=== PATIENT | male | born 1945 | race Caucasian/White ===

== ENCOUNTER → 2023-08-18 14:45 | Outpatient (REF) | payer OTHER, SELFPAY | LOC: RAD 14:45 | PROVIDERS: ATTENDING PHYSICIAN Physician Assistant; FAMILY PHYSICIAN Family Medicine | DX: I73.9 Peripheral vascular disease, unspecified (principal) | CPT/HCPCS: 93922; 93925 ==

== ENCOUNTER 2023-09-05 20:34 | Inpatient (IN) | payer OTHER, SELFPAY ==
[2023-09-05 16:48] VITALS: BP 120/66
[2023-09-05 17:15] LABS: % Basophils 0.7 % (0-2); % Eosinophils 7.4 % (0-6); % Immature Granulocytes 0.3 % (0-0.5); % Monocytes 10.8 % (1.7-9.3); % Neutrophils 64.8 % (42.2-75.2); Absolute Basophils 0.1 10^3/uL (0-0.2); Absolute Eosinophils 0.5 10^3/uL (0-0.7); Absolute Lymphocytes 1.1 10^3/uL (1.2-3.4); Absolute Monocytes 0.7 10^3/uL (0.1-0.6); Absolute Neutrophils 4.4 10^3/uL (1.4-6.5); Hematocrit 29.3 % (39.0-52.0); Hemoglobin 9.9 g/dL (13.0-18.0); Mean Corp Hgb Conc. 33.8 g/dL (33.0-37.0); Mean Corpuscular Hgb 34.1 pg (27.0-31.0); Mean Platelet Volume 9.4 fL (7.4-10.4); Nucleated Red Blood Cells % 0 % (-); Platelet Count 205 10^3/uL (130-400); Red Cell Dist. Width 15.4 % (11.5-14.5); White Blood Cell Count 6.8 10^3/uL (4.8-10.8)
[2023-09-05 17:29] LABS: ALT (SGPT) 19 U/L (0-50); AST (SGOT) 37 U/L (17-59); Albumin 3.6 g/dl (3.5-5.0); Alkaline Phosphatase 101 U/L (38-126); Blood Urea Nitrogen 45 mg/dl (9-20); Calcium 9.2 mg/dl (8.4-10.2); Carbon Dioxide 23 mmol/L (22-30); Chloride 103 mmol/L (98-107); Glucose 109 mg/dl (70-99); Potassium 4.7 mmol/L (3.5-5.1); Sodium 135 mmol/L (135-145); Total Bilirubin 0.6 mg/dl (0.2-1.3); eGFR > 60.00
--- NOTE | 2023-09-05 19:01 | ED.SKININJ ---
HPI-Injury
General
Chief Complaint: Wound Check/Suture Removal
Source: patient
Exam Limitations: none
Time Seen by Provider: 09/05/23 18:48
Travel History
Have you had any contact with someone who has COVID-19?: No
Do you have any symptoms of coronavirus? Fever > 100 degrees, chills, cough, shortness of breath, sore throat, loss of taste or smell, muscle aches, or headache?: No
History of Present Illness-Injury
Initial Injury comments:
77-year-old male with history of peripheral arterial disease presents with nonhealing and worsening left heel wound. He has been under the care of wound care center as an outpatient has been on doxycycline for approximately 2 weeks but wound is now
malodorous and having more dark tissue at the base of the wound. He was told by visiting nurse to be evaluated here. He denies fevers or chills. He has history of cardiac disease as well and is on Eliquis. No other complaints at this time
Past History
Past History
ED Past Medical History: Arrthythmia, Asthma, CAD, HTN, Hypercholesterolemia, Valvular disease and Other (pacer)
ED Past Surgical History: Cardiac
Social History
Personal:
Living: with family
Phy Exam
Physical Exam
Physical Exam:
General: well appearing male NAD
HEENT: NC/AT
heart: Irregular rate and rhythm
Lungs: Clear to auscultation bilaterally
Skin: Left heel with malodorous findings and wound with necrotic appearing tissue at the base of the wound. There is mild surrounding erythema
Vascular: Left toes with brisk capillary refill and warm to the touch
Neurologic: Good sensation left foot.
Course
Orders/Labs/Results
Orders:
Orders
09/05/23 16:57
Foot, Left 3 View [CR Foot - Left Min 3 Views] Urgent
Comment:
Reason For Exam: pain, wound infection
09/05/23 17:04
CBC/With Diff [Complete Blood Count/With Diff] Urgent
CMP [Comprehensive Metabolic Panel] Urgent
Blood Culture Urgent
LEO Source: Blood/Venous
Specimen Description:
09/05/23 19:11
Vancomycin 1500 mg IVPB NOW Vancomycin [Vancocin] 1,500 mg 0.9% Sodium Chloride [Nss] 20 ml 0.9% Sodium Chloride 250 ml [Nss] 250 ml IV NOW
Abnormal Lab Results
09/05/23
17:04
RBC 2.90 L 10^6/uL
(4.70-6.10)
Hgb 9.9 L g/dL
(13.0-18.0)
Hct 29.3 L %
(39.0-52.0)
MCV 101.0 H fL
(80.0-94.0)
MCH 34.1 H pg
(27.0-31.0)
RDW 15.4 H %
(11.5-14.5)
Absolute Lymphs (auto) 1.1 L 10^3/uL
(1.2-3.4)
Absolute Monos (auto) 0.7 H 10^3/uL
(0.1-0.6)
Lymphocytes % 16.0 L %
(20.5-51.1)
Monocytes % 10.8 H %
(1.7-9.3)
Eosinophils % 7.4 H %
(0-6)
BUN 45 H mg/dl
(9-20)
Glucose 109 H mg/dl
(70-99)
09/05/23 17:04
09/05/23 17:04
Vital Signs
Initial and Last Documented VS:
Initial Vital Signs
Temp Pulse Resp BP Pulse Ox
97.4 F 89 18 120/66 100
09/05/23 16:48 09/05/23 16:48 09/05/23 16:48 09/05/23 16:48 09/05/23 16:48
Last Documented Vital Signs
Temp Pulse Resp BP Pulse Ox
97.4 F 89 18 120/66 100
09/05/23 16:48 09/05/23 16:48 09/05/23 16:48 09/05/23 16:48 09/05/23 16:48
MDM/Problems Addressed
Differential Diagnosis Includes:
Infected heel ulcer. Has been on antibiotics and is getting worse. Check labs. Will require admission to hospital secondary to failure of outpatient treatment.
*Critical Care Note
Total Time (30-74mins, 75-104mins- exclusive of procedures): Not Applicable
ED Attending Note
-
Portions of this chart may have been created with voice recognition software.� Occasional wrong word or��sound alike� substitutions may have occurred due to the inherent limitations of voice recognition software.
Discharge Plan
Departure
Patient Disposition: Admit
Date of Disposition: 09/05/23
Time of Disposition: 19:13
Admit to: Telemetry
Presentation/result/management discussed w/ accepting MD/DO: Hospitalist
Discharge Problem:
Open wound of heel
Prescriptions:
No Action
metoprolol succinate 50 MG tablet extended release 24 hr
50 mg PO DAILY
atorvastatin [Lipitor] 10 mg Tablet
10 mg PO HS
clopidogrel [Plavix] 75 mg Tablet
75 mg PO DAILY
allopurinol 100 mg Tablet
100 mg PO DAILY
tamsulosin 0.4 mg Capsule
0.4 mg PO HS
Jardiance 10 mg Tablet
10 mg PO DAILY
Hold Instructions: Resume on 06/05/23. RESUME AFTER CARDIOLOGY OFFICE FOLLOW UP
montelukast 10 mg Tablet
10 mg PO HS
fluticasone propionate 50 mcg/actuation [place],Suspension
1 spray INTRANASAL BID
cetirizine [Zyrtec] 10 mg Tablet
10 mg PO HS
budesonide-formoterol 160-4.5 mcg/actuation Hfa Aerosol Inhaler
2 puff INHALATION R BID
cholecalciferol (vitamin D3) 50 mcg (2,000 unit) Tablet
50 mcg PO DAILY
gabapentin 300 mg Capsule
300 mg PO BID Qty: 60 0RF
oxycodone 5 mg Tablet
5 mg PO Q4HPRN PRN (Reason: severe pain) Qty: 14 0RF
torsemide 20 mg tablet
20 mg PO DAILY Qty: 30 0RF
acetaminophen 325 mg Tablet
650 mg PO Q4H PRN (Reason: mild pain/fever>100)
magnesium hydroxide [Milk of Magnesia] 400 mg/5 mL Suspension
30 ml PO DAILY PRN (Reason: if no bm x 4 days)
bisacodyl [Dulcolax (bisacodyl)] 10 mg Suppository
10 mg HI DAILY PRN (Reason: constipation)
Fleet Enema 19-7 gram/118 mL Enema
118 ml HI DAILY PRN (Reason: if dulcolax ineffective)
doxycycline hyclate 100 mg Capsule
100 mg PO Q12 Qty: 4 0RF
polyethylene glycol 3350 [HealthyLax] 17 gram Powder In Packet
17 g PO DAILY Qty: 30 0RF
sennosides-docusate sodium [Stool Softener-Stimulant Laxat] 8.6-50 mg Tablet
1 tab PO BID Qty: 30 0RF
warfarin [Jantoven] 2.5 mg Tablet
2.5 mg PO QPM Qty: 30 0RF
pantoprazole 40 mg Tablet,Delayed Release (Dr/Ec)
40 mg PO BID Qty: 60 0RF
amoxicillin-pot clavulanate 875-125 mg Tablet
1 tab PO Q12 Qty: 10 0RF
oxycodone 10 mg Tablet
10 mg PO Q4HPRN PRN (Reason: severe pain) Qty: 30 0RF
Interventions
Interventions:
*Risk Screen - Suicide Last Done: 09/05/23 16:48
*General Assessment Last Done: 09/05/23 16:48
*Neglect/Abuse Screening Last Done: 09/05/23 18:45
*ED COVID-19 Vaccine History Last Done: 09/05/23 16:48
[2023-09-05 19:26] VITALS: BP 145/70; BMI 21.2
--- NOTE | 2023-09-05 19:40 | HPS.HSE ---
Addendum entered and electronically signed by Liane Escudero MD 09/05/23 20:41:
Patient seen examined independently with [facility]. 77-year-old male with past medical history of PAD status post right common iliac and right popliteal stents, left popliteal dorsal pedal bypass with chronic nonhealing left heel wound since May
2022. Wound stable but pain has become worse over the past week with discharge despite p.o. doxycycline.. No erythema or fever. No fevers or chills. X-ray without evidence of osteomyelitis. Check wound culture. Hold off on antibiotics for now.
Podiatry consulted for potential debridement. Wound care. Vascular surgery consulted. Hold Eliquis for potential debridement.
Original Note:
Family Physician
-
Family Physician:
Chief Complaint
-
Left heel wound�necrosis, malodorous
History of Present Illness
77-year-old male with history of PAD status post right common iliac and right popliteal stents, left popliteal to dorsal pedal bypass who has a chronic left heel wound since May 2023. He has been following with outpatient wound care and has
been on doxycycline for the past 12 days but reports ongoing malodorous drainage for weeks. His states he has been using Santyl as a debridement agent since July to the heel and notes drainage after. I explained to the patient and
drainage is expected with Santyl as it is a debridement agent. There is no obvious malodorous drainage currently on my exam. The patient and state the wound is chronic in size and depth but the pain has become worse over the past week. There
is no erythema or fever. He has been wearing offloading heel boots since May. He has a chronic healing anterior mid wound overlying the talus area of the left foot status post vascular vein graft with no current erythema or drainage. He
denies fever, chills, chest pain, palpitations, shortness breath, cough, abdominal pain, nausea vomiting or diarrhea, urinary symptoms. He has past medical history of post left groin bypass infection with sepsis 06/06/2023, CAD post CABG, chronic
diastolic heart failure, persistent A-fib, moderate MR/mitral valve replacement , mitral stenosis, bioprosthetic AVR, hyponatremia, COPD, HLD, pacemaker 2020 Medtronic
Medical History
Past Medical History
Past Medical History: Reports Other
Additional Past Medical History:
Coronary Artery Disease s/p CABG
Peripheral Arterial Disease s/p Right Common Iliac and Right Popliteal Stents, and Left Popliteal to Dorsalis Pedis Bypass complicated with infection and sepsis 05/29/2023
Chronic Diastolic Heart Failure
Valvular Heart Disease: Moderate Mitral Regurgitation, Mitral Stenosis and Bioprosthetic Aortic Valve Replacement
Persistent Atrial Fibrillation
Hyperlipidemia
COPD
Chronic Hyponatremia
Recent Acute Blood Loss Anemia
Past Surgical History: Reports Other
Additional Past Surgical History:
Mitral valve replacement 2022
aVR bioprosthetic
Medtronic pacemaker 2020
CABG
Right Common Iliac and Right Popliteal Stent
Left Popliteal to Dorsalis Pedis Bypass
Left Popliteal to Dorsalis Pedis Bypass complicated with infection and sepsis 05/29/2023
Social History
Tobacco: Former Smoker
Alcohol: Daily (1 glass wine)
Drug: None
Personal:
Living: With Family ( Lucretia)
Employment: Retired
Family History
Family History: Not pertinent
Allergies / Home Medications
Allergies reflects when Allergies were last updated in [employer] [facility].
Home Medications with original date entered in [employer] [facility]
Allergy/Medication List:
Allergies
Allergy/AdvReac Type Severity Reaction Status Date / Time
lisinopril Allergy Tongue Verified 09/05/23 16:53
Swelling
losartan potassium Allergy cough/RASH Verified 09/05/23 16:53
[From Hyzaar]
morphine Allergy becomes Verified 09/05/23 16:53
delusional
sulfamethoxazole Allergy Rash/tongue Verified 09/05/23 16:53
[From Bactrim] swelling
tetanus and diphtheria Allergy muscle Verified 09/05/23 16:53
toxoids weakness &
[tetanus & diphtheria wasting
toxoids]
trimethoprim [From Bactrim] Allergy Rash/tongue Verified 09/05/23 16:53
swelling
Home Medications
metoprolol succinate 50 mg tablet,extended release 24 hr 50 mg PO QPM Blood pressure 10/15/21
allopurinol 100 mg tablet 100 mg PO DAILY Gout 03/22/23
atorvastatin 10 mg tablet (Lipitor) 10 mg PO DAILY High Cholesterol 03/22/23
clopidogrel 75 mg tablet (Plavix) 75 mg PO DAILY Blood Clot Prevention/Tx 03/22/23
empagliflozin 10 mg tablet (Jardiance) 10 mg PO QPM Heart Failure 03/22/23
tamsulosin 0.4 mg capsule 0.4 mg PO DAILY Urinary Issue 03/22/23
fluticasone propionate 50 mcg/actuation nasal spray,suspension 1 spray intranasal BID Lung/Breathing Issues 03/28/23
montelukast 10 mg tablet 10 mg PO DAILY Lung/Breathing Issues 03/28/23
budesonide-formoterol HFA 160 mcg-4.5 mcg/actuation aerosol inhaler 2 puff inhalation R BID Lung/Breathing Issues 05/16/23
cetirizine 10 mg tablet (Zyrtec) 10 mg PO QPM Allergies 05/16/23
acetaminophen 325 mg tablet 650 mg PO Q4H PRN mild pain/fever>100 06/06/23
albuterol sulfate 90 mcg/actuation aerosol inhaler 2 puff inhalation R Q4 PRN sob/wheezing 09/05/23
apixaban 5 mg tablet (Eliquis) 5 mg PO BID 09/05/23
cholecalciferol (vitamin D3) 25 mcg (1,000 unit) tablet (Vitamin D3) 25 mcg PO DAILY 09/05/23
cyanocobalamin (vitamin B-12) 1,000 mcg tablet (Vitamin B-12) 1,000 mcg PO DAILY 09/05/23
doxycycline hyclate 100 mg capsule 100 mg PO BID 09/05/23
fluticasone propionate 44 mcg/actuation HFA aerosol inhaler 2 puff inhalation R QPM 09/05/23
furosemide 40 mg tablet 40 mg PO DAILY 09/05/23
gabapentin 300 mg capsule 300 mg PO QPM 09/05/23
oxycodone 10 mg tablet,crush resistant,extended release 12 hr (OxyContin) 10 mg PO Q12H 09/05/23
oxycodone 5 mg tablet 5 mg PO Q4H PRN breakthrough pain 09/05/23
potassium chloride 20 mEq tablet,extended release(part/cryst) 20 meq PO DAILY 09/05/23
trazodone 50 mg tablet 50 mg PO HS PRN sleep 09/05/23
valsartan 40 mg tablet 20 mg PO DAILY 09/05/23
Review of Systems
-
History Source: Patient and Family ( Vania)
A 12 point ROS was completed and negative except as noted: Yes
Constitutional: Denies Fever or Chills
EENT: Denies Sore Throat or Runny Nose
Respiratory: Denies Cough or Trouble Breathing
Cardiac: Denies Chest Pain, Diaphoresis, Palpitations or Syncope
Abdomen/GI: Denies Abdominal Pain, Nausea, Vomiting, Diarrhea, Constipated, Bloody Stools or Black Stools
: Denies Dysuria, Frequency, Flank Pain, Incontinence or Difficulty Voiding
Musculoskeletal: Reports Edema (Chronic trace with chronic PVD pigmentation changes); Denies Joint Pain
Skin: Reports Other (Chronic heel wound); Denies Itching or Rash
Neurological: Denies Dizzy, Headache or Weakness
Endocrine: Reports No Symptoms
Hematologic/Lymphatic: Reports No Symptoms
Psych: Reports Calm
Physical Exam
Vital Signs
Vital Signs
Temp Pulse Resp BP Pulse Ox
97.4 F 90 16 145/70 98
09/05/23 16:48 09/05/23 19:26 09/05/23 19:26 09/05/23 19:26 09/05/23 19:26
Physical Exam
General: Comfortable, Conversant and Pain; No Fever
Respiratory: Clear; No Wheezes, Rales or Rhonchi
Cardiac: S1/S2, Regular Rhythm and Peripheral Edema (Chronic); No Murmur, Rub or Gallop
Breast: Deferred by me
GI: Soft, Non Tender, Non Distended, Normal Bowel Sounds and No Hepatosplenomegaly
Rectal: Deferred by Provider
Genito-urinary: Deferred by me
Musculoskeletal: No Clubbing, No Cyanosis, Edema, Left Lower Extremity (Chronic trace with chronic PVD pigmentation changes) and Edema, Right Lower Extremity (Chronic trace with chronic PVD pigmentation changes); No Edema, Left Upper Extremity or
Edema, Right Upper Extremity
Skin: Warm, Dry and Other (Chronic left heel wound with 30% of wound bed and purpleish black in color surrounding 10% green drainage, 60% yellow soft tissue with no erythema of the heel or foot., Chronic healing anterior mid wound overlying the
talus area of the left foot status post vascular vein graft with no current eryth); No Rash
Neuro: AO x 3, No Motor Deficits, Nonfocal/grossly intact, Cranial Nerves Intact and No Sensory Deficits; No Slurred Speech, Facial Droop or Tremors
Psych: Calm
Laboratory Results
-
09/05/23 17:04
09/05/23 17:04
Laboratory Results
Total Bilirubin 0.6 mg/dl (0.2-1.3) 09/05/23 17:04
AST 37 U/L (17-59) 09/05/23 17:04
ALT 19 U/L (0-50) 09/05/23 17:04
Alkaline Phosphatase 101 U/L (38-126) 09/05/23 17:04
Impression/Plan
-
Impression/plan:
Admit to [facility]
# Acute on chronic nonhealing left heel wound with mild necrosis
#PAD
#s/p left popliteal to dorsal pedal bypass complicated with post left groin infection/sepsis 06/06/2023
#S/p right common iliac and right popliteal stents
-WBC 6.8, 145/70
-IV vancomycin given in ER we will hold further patient just completed 12-day course of doxycycline
-Obtain wound culture if drainage present
- cont Plavix
-Hold Eliquis
-Consult Vasc surgery
-Consult podiatry
-Follow CBC, BMP
-PT/OT/case management consult
X-ray left foot: Plantar soft tissue defect no bony destructive process or foreign body
#PAD with chronic pain on chronic oral opiates
-Continue gabapentin, OxyContin 10 mg every 12 hours, oxycodone 5 mg every 4 hours as needed breakthrough pain
#CAD status post CABG
-Continue Plavix, statin, beta-juan
#Chronic diastolic heart failure
I/O, daily weights
-Continue Lasix 40 mg daily
-Continue Jardiance
#Persistent A-fib
#Continue metoprolol for rate control
- Hold Eliquis 5 mg twice daily
#Valvular heart disease: Moderate MR, mitral stenosis
#Bioprosthetic AVR/Mitral Valve
#Pacemaker 2020 medtronic
#Hx hyponatremia-stable
NA 135
#COPD�no acute exacerbation
Continue budesonide/formoterol
#Chronic anemia macrocytic
Hgb 9.9 appears better than baseline
#HLD
-Continue Lipitor
DVT prophylaxis
HOLD Eliquis
Full code
[2023-09-05] MEDS: VANCOCIN 300 MG IV (20:22)
[2023-09-05] MEDS: VANCOCIN 300 ML IV (20:22)
[2023-09-05 21:25] VITALS: BP 129/72
[2023-09-05 21:27] VITALS: BMI 20.8
[2023-09-05 21:35] VITALS: BMI 20.8
[2023-09-05] MEDS: OXYCONTIN (CONTROLLED RELEASE) 10 MG PO (21:52)
[2023-09-06 00:19] VITALS: BP 136/74
--- NOTE | 2023-09-06 05:40 | PTCARENOTE ---
Pt admitted from ED, AAOx3. Denies pain. Pt afebrile, VSS. R forearm IV C/D/I, vancomycin infused without issues. Lungs clear, on room air. No N/V or stools this shift. Voiding to urinal. Pt admitted for chronic left heel wound. Dressing
C/D/I. B/L heels elevated. Call hallman within reach.
[2023-09-06 06:32] LABS: % Basophils 0.6 % (0-2); % Eosinophils 7.9 % (0-6); % Immature Granulocytes 0.3 % (0-0.5); % Lymphocytes 21.6 % (20.5-51.1); % Monocytes 10.3 % (1.7-9.3); % Neutrophils 59.3 % (42.2-75.2); Absolute Eosinophils 0.5 10^3/uL (0-0.7); Absolute Lymphocytes 1.5 10^3/uL (1.2-3.4); Absolute Monocytes 0.7 10^3/uL (0.1-0.6); Hematocrit 27.5 % (39.0-52.0); Hemoglobin 9.6 g/dL (13.0-18.0); Mean Corp Hgb Conc. 34.9 g/dL (33.0-37.0); Mean Corpuscular Hgb 34.8 pg (27.0-31.0); Mean Corpuscular Volume 99.6 fL (80.0-94.0); Mean Platelet Volume 9.5 fL (7.4-10.4); Nucleated Red Blood Cells % 0 % (-); Platelet Count 184 10^3/uL (130-400); Red Blood Cell Count 2.76 10^6/uL (4.70-6.10); Red Cell Dist. Width 15.6 % (11.5-14.5); White Blood Cell Count 6.7 10^3/uL (4.8-10.8)
[2023-09-06 06:43] LABS: Blood Urea Nitrogen 36 mg/dl (9-20); Carbon Dioxide 21 mmol/L (22-30); Chloride 108 mmol/L (98-107); Estimated Creatinine Clearance 54 ml/min; Glucose 89 mg/dl (70-99); Potassium 4.5 mmol/L (3.5-5.1); Sodium 135 mmol/L (135-145); eGFR > 60.00
[2023-09-06 07:40] VITALS: BP 118/59
[2023-09-06] MEDS: SYMBICORT 160/4.5 MCG INHALER 2 PUFF INH ×2 (08:13→21:10)
[2023-09-06] MEDS: DIOVAN 20 MG PO (08:25)
[2023-09-06] MEDS: LIPITOR 10 MG PO (08:26)
[2023-09-06] MEDS: VITAMIN D3 (cholecalciferol) 25 MCG PO (08:26)
[2023-09-06] MEDS: SINGULAIR 10 MG PO (08:26)
[2023-09-06] MEDS: FLOMAX 0.400000000000000022 MG PO (08:26)
[2023-09-06] MEDS: VITAMIN B-12 1000 MCG PO (08:27)
[2023-09-06] MEDS: OXYCONTIN (CONTROLLED RELEASE) 10 MG PO ×2 (08:27→19:20)
[2023-09-06] MEDS: ZYLOPRIM 100 MG PO (08:27)
[2023-09-06] MEDS: PLAVIX 75 MG PO (08:27)
[2023-09-06] MEDS: LASIX 40 MG PO (08:27)
[2023-09-06 09:29] VITALS: BP 121/71; PULSE 110; O2SAT 98
[2023-09-06 11:00] VITALS: BMI 21.2
[2023-09-06] MEDS: ROXICODONE 5 MG PO (12:41)
--- NOTE | 2023-09-06 13:04 | WOUNDNOTE ---
[facility] RN note: Patient admitted with chronic left heel wound
See H&P for complete history.
PMH: PAD s/p right common iliac and right popliteal stents, left popliteal dorsal pedal bypass with chronic nonhealing left heel wound since May 2023 (occurred at [facility]) Coronary Artery Disease s/p CABG
Chronic Diastolic Heart Failure
Valvular Heart Disease: Moderate Mitral Regurgitation, Mitral Stenosis and Bioprosthetic Aortic Valve Replacement
Persistent Atrial Fibrillation
Hyperlipidemia
COPD
Chronic Hyponatremia
Recent Acute Blood Loss Anemia
08/18/2023 TBI Left .37, TBI Right .37
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 Wound is 70% covered with slough and eschar. Patient has been followed by [facility] wound care and wound has been debrided weekly, with use of Santyl currently for wound
care. Right heel with DTI. Patient demonstrates ability to turn in bed. States and demonstrates understanding of keeping heels off-loaded. Sacrum intact.
Appetite: Fair
Pressure redistribution devices in place: [employer] Accumax
Plan: Left heel wound cleaned and packed with Vashe moistened gauze and covered with foam. Right heel covered with adhesive foam. Awaiting consult from podiatry and vascular. Will continue to follow with patient. Will confirm orders with
hospitalist and update nurse.
Note to case management of equipment requested for discharge:
Recommend follow up at wound care center upon discharge.
[2023-09-06 13:30] VITALS: BMI 21.2
[2023-09-06 13:44] LABS: Iron 63 ug/dl (49-181)
[2023-09-06 13:53] LABS: Percent Saturation 24 % (20-50); Total Iron Binding Capacity 261 ug/dl (261-462)
--- NOTE | 2023-09-06 14:07 | CON.ID ---
Consultation
-
Date/Time Consultation Requested: 09/06/23 13:45
Date/Time Consultation Performed: 09/06/23 14:10
Requesting Provider: Dr Corbett
Performing Provider: Dr Shipley
Reason for Consultation: Heel Ulceration
Chief Complaint / Past History
Chief Complaint
heel wound - chronic
History of Present Illness
Mr Haines is a 77 year old male with past medical history of PAD s/p R common iliac and R popliteal stents, L popliteal dorsal pedal bypass. He presented here for a chronic L heel wound which began 06/01; he doesnt recall exactly how the wound
developed reports he was in rehab and not very mobile. Now moving around with walker and pressure offloading boot.� Over the last two weeks with increasing pain and drainage. About 12 days ago started on doxycycline without improvement. No fevers
or chills.�He has been using santyl to the wound. He is on Jardiance with a normal a1c when last assessed 3 months ago. Jardinance is for cardiac remodeling? Never diagnosed with dm2.
Since arrival here he has been afebrile, bp stable, without leukocytosis 6.7, no left shift, cr 1.1, blood cultures x1 in progress - I have ordered a second. Xray without evidence of osteomyelitis. Had vancomycin. ID is consulted for assistance
with management.
Past History
Additional Past Medical History:
Peripheral Arterial Disease s/p Right Common Iliac and Right Popliteal Stents, and Left Popliteal to Dorsalis Pedis Bypass complicated with infection and sepsis 05/29/2023
Chronic Diastolic Heart Failure
Valvular Heart Disease: Moderate Mitral Regurgitation, Mitral Stenosis and Bioprosthetic Aortic Valve Replacement
Persistent Atrial Fibrillation
Hyperlipidemia
COPD
Chronic Hyponatremia
Additional Past Surgical History:
Mitral valve replacement 2022
aVR bioprosthetic
Medtronic pacemaker 2020
CABG
Right Common Iliac and Right Popliteal Stent
Left Popliteal to Dorsalis Pedis Bypass
Left Popliteal to Dorsalis Pedis Bypass complicated with infection and sepsis 05/29/2023
Allergy History:
lisinopril Allergy (Verified 09/05/23 16:53)
Tongue Swelling
losartan potassium [From Hyzaar] Allergy (Verified 09/05/23 16:53)
cough/RASH
morphine Allergy (Verified 09/05/23 16:53)
becomes delusional
sulfamethoxazole [From Bactrim] Allergy (Verified 09/05/23 16:53)
Rash/tongue swelling
tetanus and diphtheria toxoids [tetanus & diphtheria toxoids] Allergy (Verified 09/05/23 16:53)
muscle weakness & wasting
trimethoprim [From Bactrim] Allergy (Verified 09/05/23 16:53)
Rash/tongue swelling
Medications Reviewed: Yes
Social History
Tobacco: Former Smoker
Alcohol: Daily (1 glass of wine daily)
Drug: None
Family History
Family History: Not Pertinent
Review of Systems
Review of Systems
General: Negative Fever or Chills
All systems: All other systems were reviewed and were negative
Vital Signs
Temp Pulse Resp BP Pulse Ox
98.0 F 101 16 118/59 99
09/06/23 07:40 09/06/23 08:25 09/06/23 08:14 09/06/23 08:25 09/06/23 08:14
Physical Exam
Physical Exam
Constitutional: No Acute Distress
Cardiovascular: Regular Rate and S1/S2; Negative Murmur or Rub
Pulmonary: Clear and Symmetric; Negative Wheezes, Rales or Rhonchi
Gastrointestinal: Soft, Non Tender, Non Distended and Normal Bowel Sounds
Skin: Warm and Dry; Negative Rash or Jaundice
Wound: Other (L heel wound with necrotic tissue - no odor +probe to bone; wound is tender)
Lab / Diagnostic Study Results
09/06/23 06:01
09/06/23 06:01
Abs Immat Gran (auto) 0.0 10^3/uL (0-0.05) 09/06/23 06:01
Absolute Neuts (auto) 4.0 10^3/uL (1.4-6.5) 09/06/23 06:01
Absolute Lymphs (auto) 1.5 10^3/uL (1.2-3.4) 09/06/23 06:01
Absolute Monos (auto) 0.7 10^3/uL (0.1-0.6) H 09/06/23 06:01
Absolute Basos (auto) 0.0 10^3/uL (0-0.2) 09/06/23 06:01
Immature Gran % 0.3 % (0-0.5) 09/06/23 06:01
Neutrophils % 59.3 % (42.2-75.2) 09/06/23 06:01
Lymphocytes % 21.6 % (20.5-51.1) 09/06/23 06:01
Monocytes % 10.3 % (1.7-9.3) H 09/06/23 06:01
Eosinophils % 7.9 % (0-6) H 09/06/23 06:01
Basophils % 0.6 % (0-2) 09/06/23 06:01
Microbiology Results
Micro:
09/05/23 17:04 Blood Culture - Pending
Blood/Venous
Assessment / Plan
Probable Osteomyelitis of the L Heel
PAD/CAD
- wound probes to bone
- agree with MRI - added contrast
- started unasyn
- agree with podiatry consultation
- follow clinically
[2023-09-06 14:43] LABS: Ferritin 64.3 ng/ml (17.9-464.0)
[2023-09-06 14:57] LABS: Vitamin B12 > 1000 pg/ml (239-931)
--- NOTE | 2023-09-06 15:01 | CON.VAS ---
Consultation
Consultation Request
Date/Time Consultation Performed: 09/06/23 1500
Requesting Provider: Hospitalist
Performing Provider: Telma Benton, EMBEDDED FIRMWARE DEVELOPER-C for Khadar Sullivan MD
Reason for Consultation: Left heel wound
Medical History
-
Chief Complaint: Left heel wound
History of Present Illness:
This is a 69-year-old male patient known to us as he is status post left lower extremity arterial bypass (Reynolds) from below-knee popliteal artery to dorsalis pedis for tissue loss on 05/19/23. He presented to [facility] ED as he had worsening pain
at the left heel. He notes wound is unchanged in regards to size and depth but does note increased drainage and malodor. He denies fever, chills, chest pain, palpitations, shortness breath, cough, abdominal pain, nausea vomiting or diarrhea,
urinary symptoms. Please see vascular surgical history below. Currently offers no complaints. Please see wound care notes for pictures of chronic wound. Bilateral lower extremity arterial ultrasound with JASON TBI obtained in the outpatient
setting on 08/18/23 demonstrates, 'multiphasic waveforms from common femoral through popliteal artery with no velocity elevation to suggest any significant stenosis. Left popliteal below the knee to dorsalis pedis artery bypass is patent with
monophasic waveforms. In addition distal anastomotic velocity of 454 cm/s and velocity ratio of 5.1 suggestive of greater than 75% stenosis.'
Past Vascular Surgery History:
05/08/2020- Balloon angioplasty and stenting of right common iliac artery stenosis and popliteal artery stenosis behind the knee, intravascular lithotripsy right common iliac artery stenosis and popliteal artery stenosis, diagnostic aortobiiliac
arteriogram, and diagnostic right lower extremity arteriogram
10/30/2020- Shockwave balloon lithotripsy of heavily calcified above the knee and behind the knee popliteal artery stenoses, balloon angioplasty and stenting of above the knee and behind the knee popliteal artery stenoses, balloon angioplasty and
stenting of left common iliac artery stenosis, diagnostic aortobiiliac arteriogram, diagnostic left lower extremity arteriogram
03/28/2023- Selective catheterization of third order lower extremity artery, attempted (failed) antegrade/retrograde crossing of heavily calcified distal anterior tibial artery occlusion, diagnostic aortobiiliac arteriogram, diagnostic left lower
extremity arteriogram
05/19/2023- LEFT below the knee popliteal artery to dorsalis pedis artery bypass using ipsilateral nonreversed great saphenous vein
06/07/2023- Incision and drainage of left groin and thigh superficial wound infection. Pulse lavage irrigation
Past Medical History
Past Medical History: Arrhythmias (Persistent atrial fibrillation), Asthma, CAD, HTN, Valvular Disease (Moderate Mitral Regurgitation, Mitral Stenosis and Bioprosthetic Aortic Valve Replacement) and Other (Chronic Hyponatremia)
Past Surgical History: Cardiac (Permanent pacemaker, CABG, Mitral valve replacement 2022 aVR bioprosthetic) and Other (See HPI for vascular surgery history)
Social History
Tobacco: Former Smoker
Alcohol: Daily (1 glass of wine per day)
Personal:
Living: With Family
Employment: Retired
Allergies / Home Medications
Allergy/AdvReac Type Severity Reaction Status Date / Time
lisinopril Allergy Tongue Verified 09/05/23 16:53
Swelling
losartan potassium Allergy cough/RASH Verified 09/05/23 16:53
[From Hyzaar]
morphine Allergy becomes Verified 09/05/23 16:53
delusional
sulfamethoxazole Allergy Rash/tongue Verified 09/05/23 16:53
[From Bactrim] swelling
tetanus and diphtheria Allergy muscle Verified 09/05/23 16:53
toxoids weakness &
[tetanus & diphtheria wasting
toxoids]
trimethoprim [From Bactrim] Allergy Rash/tongue Verified 09/05/23 16:53
swelling
Medication Instructions Recorded Confirmed Type
metoprolol succinate 50 mg 50 mg PO QPM Blood pressure 10/15/21 09/05/23 History
tablet,extended release 24 hr
allopurinol 100 mg tablet 100 mg PO DAILY Gout 03/22/23 09/05/23 History
atorvastatin 10 mg tablet (Lipitor) 10 mg PO DAILY High Cholesterol 03/22/23 09/05/23 History
clopidogrel 75 mg tablet (Plavix) 75 mg PO DAILY Blood Clot 03/22/23 09/05/23 History
Prevention/Tx
empagliflozin 10 mg tablet 10 mg PO QPM Heart Failure 03/22/23 09/05/23 History
(Jardiance)
tamsulosin 0.4 mg capsule 0.4 mg PO DAILY Urinary Issue 03/22/23 09/05/23 History
fluticasone propionate 50 1 spray intranasal BID 03/28/23 09/05/23 History
mcg/actuation nasal Lung/Breathing Issues
spray,suspension
montelukast 10 mg tablet 10 mg PO DAILY Lung/Breathing 03/28/23 09/05/23 History
Issues
budesonide-formoterol HFA 160 2 puff inhalation R BID 05/16/23 09/05/23 History
mcg-4.5 mcg/actuation aerosol Lung/Breathing Issues
inhaler
cetirizine 10 mg tablet (Zyrtec) 10 mg PO QPM Allergies 05/16/23 09/05/23 History
acetaminophen 325 mg tablet 650 mg PO Q4H PRN mild 06/06/23 09/05/23 History
pain/fever>100
albuterol sulfate 90 mcg/actuation 2 puff inhalation R Q4 PRN 09/05/23 09/05/23 History
aerosol inhaler sob/wheezing
apixaban 5 mg tablet (Eliquis) 5 mg PO BID Blood Clot 09/05/23 09/05/23 History
Prevention/Tx
cholecalciferol (vitamin D3) 25 25 mcg PO DAILY Supplement 09/05/23 09/05/23 History
mcg (1,000 unit) tablet (Vitamin
D3)
cyanocobalamin (vitamin B-12) 1,000 mcg PO DAILY Supplement 09/05/23 09/05/23 History
1,000 mcg tablet (Vitamin B-12)
doxycycline hyclate 100 mg capsule 100 mg PO BID Infection 09/05/23 09/05/23 History
furosemide 40 mg tablet 40 mg PO DAILY Fluid 09/05/23 09/05/23 History
Retention/Swelling
gabapentin 300 mg capsule 300 mg PO QPM Pain 09/05/23 09/05/23 History
oxycodone 10 mg tablet,crush 10 mg PO Q12H Pain 09/05/23 09/05/23 History
resistant,extended release 12 hr
(OxyContin)
oxycodone 5 mg tablet 5 mg PO Q4H PRN breakthrough pain 09/05/23 09/05/23 History
potassium chloride 20 mEq 20 meq PO DAILY Electrolyte 09/05/23 09/05/23 History
tablet,extended release(part/cryst) Repletion
trazodone 50 mg tablet 50 mg PO HS PRN sleep 09/05/23 09/05/23 History
valsartan 40 mg tablet 20 mg PO DAILY Blood Pressure 09/05/23 09/05/23 History
Review of Systems
-
History Source: Patient
Constitutional: Reports No Symptoms
EENT: Reports No Symptoms
Respiratory: Reports No Symptoms
Cardiac: Reports No Symptoms
Abdomen/GI: Reports No Symptoms
: Reports No Symptoms
Musculoskeletal: Reports Edema (Bilateral lower extremity +1 pitting edema)
Skin: Reports Other (Left heel with chronic tissue loss/nonhealing wound now with increased pain, malodor, and drainage over the past week)
Neurological: Reports No Symptoms
Physical Exam
Vital Signs
Temp Pulse Resp BP Pulse Ox
98.0 F 101 16 118/59 99
09/06/23 07:40 09/06/23 08:25 09/06/23 08:14 09/06/23 08:25 09/06/23 08:14
Lab Results
09/06/23 06:01
09/06/23 06:01
Physical Exam
General: No Apparent Distress
HEENT: Normocephalic, Anicteric and Atraumatic
Respiratory: Non Labored Respirations
Cardiac: Irregular Rhythm; Negative JVD
GI: Soft, Non Tender and Non Distended
Musculoskeletal: Edema (Bilateral lower extremity +1 pitting edema)
Skin: Other (Left heel tissue loss, please refer to wound care notes for pictures of description)
Neuro: AO x 3
Pulses: Bilateral Femoral: +2, Bilateral Dorsalis Pedis: Doppler and Bilateral Posterior Tibial: Doppler
Assessment / Plan
-
Assessment: 69-year-old male with PAD and tissue loss to left heel/chronic wound.
Plan:
Noninvasive imaging of arterial ultrasound with JASON/TBI obtained within this past month no need to repeat
MRI to rule out osteo per recommendation of podiatry
ID following
Given reports of high velocity at distal anastomosis could consider arteriogram, possibly this coming Monday09/08/23 will review with attending. Official surgical plan per attending.
I performed this shared service with the attending. I evaluated the patient [id number] and have entered clinical documentation as shown in the encounter note. I performed the following component(s): history and physical exam. Note that medical
decision making is not final until attested by vascular attending.
--- NOTE | 2023-09-06 15:13 | W.PN.HOSP.TC ---
Today's Communication/Plan
-
AB
Vascular eval
MRI
Assessment / Plan
Assessment / Plan
77-year-old male with ulcer left heel. Visiting nurse recommended that he go to the hospital.
On examination patient is awake and alert
Cardiovascular [id number] regular
Chest clear to auscultation
Abdomen soft and nontender
Mild edema bilateral ankle
Feet warm pulses not readily palpable
Small ulcer right heel deep tissue injury
Left heel with an ulcer with an order, slough
JASON 08/18/2023-right lower extremity 0.62 consistent with moderate arterial insufficiency improved from prior study 0.50. TBI severely reduced 0.26 stable.
Left lower extremity JASON not performed secondary to lower extremity bypass. TBI moderate to severely reduced 0.37. No stenosis of common femoral through popliteal artery below popliteal more than 75% stenosis?
# Infected left heel wound-unstageable to stage IV
X-ray of the foot without evidence of bone involvement
Sloughing noted
Patient has been followed by [facility] wound care and debrided weekly.
Continue wound care
MRI of the foot to rule out osteomyelitis
Podiatry, vascular evaluations
ID evaluation
Continue antibiotics IV
Wound culture
# Peripheral artery disease
Vascular evaluation
History of left popliteal to dorsalis pedis bypass complicated with left inguinal infection/sepsis 05/29/2023
History of right common iliac and right popliteal stents
# Chronic pain narcotic dependent
Chronic back pain
Patient is on OxyContin 10 mg Q12
Oxycodone 5 mg every 4 hours as needed for pain
# Coronary disease with history of CABG
Complicated by sternal debridement and pectoral flap
Continue Plavix, statin and beta-juan, valsartan
# Chronic heart failure with preserved ejection fraction
Continue Jardiance, Lasix, valsartan, beta-juan
# Persistent atrial fibrillation-continue beta-blockers and Eliquis
History of cardioversion and ablation in the past
# Pacemaker 2020
# Bioprosthetic aortic and mitral valve replacements
# COPD-no exacerbation
Continue budesonide/formoterol
# Chronic anemia-hemoglobin appears to be at baseline
Iron studies and B12 sufficient
# Hyperlipidemia-continue Lipitor
# Gout-continue allopurinol
# Prostate disease-continue Flomax
# Insomnia-continue trazodone
# History of vertigo
# History of cervical discectomy for herniated disc
# Psoriasis
# Ex-smoker
# DVT prophylaxis-Eliquis on hold anticipating surgical procedure. Lovenox 40 mg while Eliquis on hold
# Full code
Discussed with at bedside
Anticipated Discharge: > 48 hours
Subjective/Interval History
-
Date of Service: September 06, 2023
Objective Data
-
Labs:
Laboratory Results
09/06/23
06:01
WBC 6.7
Hgb 9.6 L
Hct 27.5 L
Plt Count 184
Sodium 135
Potassium 4.5
Chloride 108 H
Carbon Dioxide 21 L
BUN 36 H
Creatinine 1.1
Glucose 89
Calcium 9.0
Vital Signs:
Vital Signs
Temp Pulse Resp BP Pulse Ox
98.0 F 101 16 118/59 99
09/06/23 07:40 09/06/23 08:25 09/06/23 08:14 09/06/23 08:25 09/06/23 08:14
I&O
09/05/23 09/06/23 09/07/23
06:59 06:59 06:59
Output Total 750 / 750
Balance -750 / -750
[2023-09-06 15:27] VITALS: BP 128/67
[2023-09-06] MEDS: UNASYN IV ×2 (16:12→22:23)
[2023-09-06] MEDS: TOPROL XL 50 MG PO (17:06)
[2023-09-06] MEDS: NEURONTIN 300 MG PO (17:06)
[2023-09-06] MEDS: JARDIANCE 10 MG PO (17:06)
[2023-09-06] MEDS: LOVENOX 40 MG SC (17:07)
[2023-09-06] MEDS: ZYRTEC 10 MG PO (17:15)
--- NOTE | 2023-09-06 17:30 | CON.MD ---
Consultation - Medical
-
Podiatry consulted for left heel wound
History of Present Illness
Mr Haines is a 77 year old male seen at bedside today sitting up in [facility]. He has an extensive cadiac and vascular history of PAD. He underwent R common iliac and R popliteal stents, L popliteal dorsal pedal bypass.� He presented to the ER yesterday
for a chronic L heel wound which began 06/01 when he noticed increased drainage, pain and malodor. He has been treating at [facility] and undergoing weekly debridement and using Santyl ointment.�He was on doxycycline for the past
12 days without improvement.� No fevers or chills.�
Past History:
Peripheral Arterial Disease s/p Right Common Iliac and Right Popliteal Stents, and Left Popliteal to Dorsalis Pedis Bypass complicated with infection and sepsis 05/29/2023
Chronic Diastolic Heart Failure
Valvular Heart Disease: Moderate Mitral Regurgitation, Mitral Stenosis and Bioprosthetic Aortic Valve Replacement
Persistent Atrial Fibrillation
Hyperlipidemia
COPD
Chronic Hyponatremia
Past Surgical History:
Mitral valve replacement 2022
AVR bioprosthetic
Medtronic pacemaker 2020
CABG
Right Common Iliac and Right Popliteal Stent
Left Popliteal to Dorsalis Pedis Bypass
Left Popliteal to Dorsalis Pedis Bypass complicated with infection and sepsis 05/29/2023
Allergy History:
lisinopril Allergy (Verified 09/05/23 16:53)
Tongue Swellinglosartan potassium [From Hyzaar] Allergy (Verified 09/05/23 16:53)
cough/RASHmorphine Allergy (Verified 09/05/23 16:53)
becomes delusionalsulfamethoxazole [From Bactrim] Allergy (Verified 09/05/23 16:53)
Rash/tongue swellingtetanus and diphtheria toxoids [tetanus & diphtheria toxoids] Allergy (Verified 09/05/23 16:53)
muscle weakness & wastingtrimethoprim [From Bactrim] Allergy (Verified 09/05/23 16:53)
Rash/tongue swelling
Medications: Yes
Social History
Tobacco: Former Smoker
Alcohol: Daily (1 glass of wine daily)
Drug: None
Family History
Family History: Not Pertinent
Review of Systems
General: Negative Fever or Chills
All systems: All other systems were reviewed and were negative
Vital Signs/labs:
without leukocytosis 6.7, no left shift,� cr 1.1, blood cultures pending
-
Temp Pulse Resp BP Pulse Ox
�98.0 F �101 �16 �118/59 �99
�09/06/23 07:40 �09/06/23 08:25 �09/06/23 08:14 �09/06/23 08:25 �09/06/23 08:14
09/06/23 06:01�
Abs Immat Gran (auto) �0.0 10^3/uL (0-0.05)� 09/06/23� 06:01� �
Absolute Neuts (auto) �4.0 10^3/uL (1.4-6.5)� 09/06/23� 06:01� �
Absolute Lymphs (auto) �1.5 10^3/uL (1.2-3.4)� 09/06/23� 06:01� �
Absolute Monos (auto) �0.7 10^3/uL (0.1-0.6)� H 09/06/23� 06:01� �
Absolute Basos (auto) �0.0 10^3/uL (0-0.2)� 09/06/23� 06:01� �
Immature Gran % �0.3 % (0-0.5)� 09/06/23� 06:01� �
Neutrophils % �59.3 % (42.2-75.2)� 09/06/23� 06:01� �
Lymphocytes % �21.6 % (20.5-51.1)� 09/06/23� 06:01� �
Monocytes % �10.3 % (1.7-9.3)� H 09/06/23� 06:01� �
Eosinophils % �7.9 % (0-6)� H 09/06/23� 06:01� �
Basophils % �0.6 % (0-2)� 09/06/23� 06:01� �
Microbiology Results
Micro:
�09/05/23 17:04 Blood Culture - Pending
�Blood/Venous �
Physical Exam:
Feet are warm to touch, loss of pedal hair, some generalized edema, difficult to palpate pulses, Left heel wound large fibrinonecrotic ulceration that probes to calcaneaus bone. It is approximately 3 cm x 2 cm x 1 cm in size. There is black
necrotic tissue in the base of the wound with some malodor. No purulence, no cellulitis. The wound edges appear viable. The right heel has a full thickness fibrogranular wound that appears stable and non infected. It does not probe or undermine.
No signs of infection of surroundiing skin breakdown. It measures 1 cm x 0.5 cm x 0.2 cm
Assessment:
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
PAD/CAD
Stable right heel ulcer - Grade 1
Plan:
-He is evaluated and treated at bedside
-Vashe soaked gauze to the wound daily
-Offloading in protective boots.
- MRI with contrast pending to rule out osteomyelitis of the calceanus
- Continue unasyn per ID
- Vascular evaluation pending.
-
[2023-09-06] MEDS: SENOKOT 17.1999999999999993 MG PO (19:20)
[2023-09-06] MEDS: COLACE 100 MG PO (19:20)
[2023-09-06 23:00] VITALS: BP 104/49
[2023-09-07] MEDS: UNASYN IV ×4 (04:00→22:15)
[2023-09-07 06:42] LABS: % Basophils 0.9 % (0-2); % Eosinophils 7.3 % (0-6); % Immature Granulocytes 0.1 % (0-0.5); % Lymphocytes 20.7 % (20.5-51.1); % Monocytes 11.7 % (1.7-9.3); % Neutrophils 59.3 % (42.2-75.2); Absolute Basophils 0.1 10^3/uL (0-0.2); Absolute Eosinophils 0.5 10^3/uL (0-0.7); Absolute Lymphocytes 1.4 10^3/uL (1.2-3.4); Absolute Monocytes 0.8 10^3/uL (0.1-0.6); Hemoglobin 9.7 g/dL (13.0-18.0); Mean Corp Hgb Conc. 33.4 g/dL (33.0-37.0); Mean Corpuscular Hgb 34.2 pg (27.0-31.0); Mean Corpuscular Volume 102.1 fL (80.0-94.0); Mean Platelet Volume 9.8 fL (7.4-10.4); Nucleated Red Blood Cells % 0 % (-); Platelet Count 171 10^3/uL (130-400); Red Blood Cell Count 2.84 10^6/uL (4.70-6.10); Red Cell Dist. Width 15.3 % (11.5-14.5); White Blood Cell Count 6.8 10^3/uL (4.8-10.8)
[2023-09-07 07:00] VITALS: BP 124/63
[2023-09-07 07:02] LABS: Blood Urea Nitrogen 32 mg/dl (9-20); Calcium 9.5 mg/dl (8.4-10.2); Carbon Dioxide 26 mmol/L (22-30); Chloride 101 mmol/L (98-107); Estimated Creatinine Clearance 51 ml/min; Glucose 94 mg/dl (70-99); Potassium 4.2 mmol/L (3.5-5.1); Sodium 135 mmol/L (135-145); eGFR > 60.00
[2023-09-07] MEDS: ZYLOPRIM 100 MG PO (07:19)
[2023-09-07] MEDS: PLAVIX 75 MG PO (07:19)
[2023-09-07] MEDS: COLACE 100 MG PO ×2 (07:19→20:36)
[2023-09-07] MEDS: VITAMIN B-12 1000 MCG PO (07:19)
[2023-09-07] MEDS: LIPITOR 10 MG PO (07:19)
[2023-09-07] MEDS: MIRALAX 17 GRAMS PO (07:19)
[2023-09-07] MEDS: FLOMAX 0.400000000000000022 MG PO (07:19)
[2023-09-07] MEDS: OXYCONTIN (CONTROLLED RELEASE) 10 MG PO (07:19)
[2023-09-07] MEDS: SENOKOT 17.1999999999999993 MG PO ×2 (07:20→20:36)
[2023-09-07] MEDS: SINGULAIR 10 MG PO (07:20)
[2023-09-07] MEDS: VITAMIN D3 (cholecalciferol) 25 MCG PO (07:20)
[2023-09-07] MEDS: DIOVAN 20 MG PO (07:22)
[2023-09-07] MEDS: LASIX 40 MG PO (07:22)
[2023-09-07] MEDS: SYMBICORT 160/4.5 MCG INHALER 2 PUFF INH ×2 (07:23→19:45)
[2023-09-07] MEDS: ROXICODONE 5 MG PO ×2 (09:51→15:18)
[2023-09-07 10:00] VITALS: BMI 21.2
--- NOTE | 2023-09-07 11:12 | W.PN.UPDATE ---
Update Note
Progress Note Update
Attempted to evaluate, but patient an MRI currently. Tentatively will plan angiogram tomorrow (Rodolfo) left lower extremity for possible angioplasty of distal anastomotic stenosis, and heel debridement.
--- NOTE | 2023-09-07 11:23 | W.PN.ID1 ---
Date of Service
Date of Service: September 07, 2023
Today's Communication
request bone be sent for culture if taken to the OR
Assessment / Plan
Probable Osteomyelitis of the L Heel
PAD/CAD
- wound probes to bone
- wound culture polymicrobial sensitive e coli and an anaerobe
- await MRI
- continue unasyn
- agree with podiatry consultation
- follow clinically
Chief Complaint
-: Other (probable osteomyelitis)
Subjective / Review of Systems
afebrile
bp stable
without leukocytosis
cr stable
wound culture polymicrobial sensitive e coli and an anaerobe
MRI consistent with osteo
discussed at length with patient and
Vital Signs / Physical Exam
Vital Signs
Vital Signs
Temp Pulse Resp BP Pulse Ox
97.8 F 91 16 124/63 97
09/07/23 07:00 09/07/23 07:23 09/07/23 07:23 09/07/23 07:00 09/07/23 07:23
Physical Exam
Constitutional: No Acute Distress
Cardiovascular: Regular Rate
Pulmonary: Symmetric and Non Labored
Gastrointestinal: Non Tender and Non Distended
Skin: Warm and Dry; Negative Rash or Jaundice
Wound: Other (L heel odor notable, necrotic material, no surrounding erythema; R heel - pressure injury without wound)
Objective Data
Lab Data
Lab Results
09/07/23 06:05
09/07/23 06:05
Estimated Creat Clear 51 ml/min 09/07/23 06:05
Total Bilirubin 0.6 mg/dl (0.2-1.3) 09/05/23 17:04
AST 37 U/L (17-59) 09/05/23 17:04
ALT 19 U/L (0-50) 09/05/23 17:04
Alkaline Phosphatase 101 U/L (38-126) 09/05/23 17:04
Most recent labs reviewed.
Micro Results:
09/05/23 17:04 Blood Culture - Preliminary
Blood/Venous No Growth in 24 hours- Final report to follow
09/06/23 15:15 Wound Culture - Pending
Heel - Left Gram Stain - Preliminary
09/06/23 14:23 Blood Culture - Pending
Blood/Venous
--- NOTE | 2023-09-07 15:28 | CM ---
Spoke with patient to obtain information for assessment. Patient's was at bedside. [facility], them most recently back in his [facility] with his . 2steps to enter. Patient described himself as independent with
his ADLs, personal care, dressing and bathing as well as toiletng. 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 Patient's does the chores if he is not feeling up for it.
Patient uses a walker to assist with his ambulation but denied any other DME in his home.
Patient is current with [facility].
He has a prescription plan and uses [facility] in [place] for al of his medications.
His PCP is, Steph Hernandez.
Patient stated that he would like to return home when stable medically with resumption of services through [facility].
Placed a call to Janette in admissions at [facility] who requested that a referral be resent for resumption. Will send referral.
Plan: Case management will continue to follow and assist with discharge planning. Will make referral to [facility].
[2023-09-07 15:31] VITALS: BP 126/57
--- NOTE | 2023-09-07 15:52 | W.PN.HOSP.TC ---
Today's Communication/Plan
-
Arteriogram and debridement tomorrow
Assessment / Plan
Assessment / Plan
77-year-old male with ulcer left heel. Visiting nurse recommended that he go to the hospital.
On examination patient is awake and alert
Cardiovascular [id number] regular
Chest clear to auscultation
Abdomen soft and nontender
Mild edema bilateral ankle
Feet warm pulses not readily palpable
Small ulcer right heel deep tissue injury
Left heel with an ulcer with an order, slough
JASON 08/18/2023-right lower extremity 0.62 consistent with moderate arterial insufficiency improved from prior study 0.50. TBI severely reduced 0.26 stable.
Left lower extremity JASON not performed secondary to lower extremity bypass. TBI moderate to severely reduced 0.37. No stenosis of common femoral through popliteal artery below popliteal more than 75% stenosis?
MRI-enhancement of the posterior inferior aspect of the calcaneus consistent with osteomyelitis in the area of the nonhealing ulcer. No abscess.
# Infected left heel wound-unstageable to stage IV
Osteomyelitis of the calcaneus per MRI
Sloughing noted
Patient has been followed by [facility] wound care and debrided weekly.
Continue wound care
MRI of the foot to rule out osteomyelitis
Continue antibiotics IV
Wound culture pending
For arteriogram and debridement tomorrow
# Peripheral artery disease
Vascular evaluation
History of left popliteal to dorsalis pedis bypass complicated with left inguinal infection/sepsis 05/29/2023
History of right common iliac and right popliteal stents
# Chronic pain narcotic dependent
Chronic back pain
Patient states that he does not take OxyContin anymore only oxycodone therefore we will stop.
Oxycodone 5 mg every 4 hours as needed for pain
# Coronary disease with history of CABG
Complicated by sternal debridement and pectoral flap
Continue Plavix, statin and beta-juan, valsartan
# Chronic heart failure with preserved ejection fraction
Continue Jardiance, Lasix, valsartan, beta-juan
# Persistent atrial fibrillation-continue beta-blockers and Eliquis
History of cardioversion and ablation in the past
# Pacemaker 2020
# Bioprosthetic aortic and mitral valve replacements
# COPD-no exacerbation
Continue budesonide/formoterol
# Chronic anemia-hemoglobin appears to be at baseline
Iron studies and B12 sufficient
# Hyperlipidemia-continue Lipitor
# Gout-continue allopurinol
# Prostate disease-continue Flomax
# Insomnia-continue trazodone
# History of vertigo
# History of cervical discectomy for herniated disc
# Psoriasis
# Ex-smoker
# DVT prophylaxis-Eliquis on hold anticipating surgical procedure. Lovenox 40 mg while Eliquis on hold
# Full code
Discussed with vascular MANAGER REPORTING
Anticipated Discharge: > 48 hours
Subjective/Interval History
-
Date of Service: September 07, 2023
Objective Data
-
Labs:
Laboratory Results
09/07/23
06:05
WBC 6.8
Hgb 9.7 L
Hct 29.0 L
Plt Count 171
Sodium 135
Potassium 4.2
Chloride 101
Carbon Dioxide 26
BUN 32 H
Creatinine 1.2
Glucose 94
Calcium 9.5
Vital Signs:
Vital Signs
Temp Pulse Resp BP Pulse Ox
97.5 F 83 18 126/57 98
09/07/23 15:31 09/07/23 15:31 09/07/23 15:31 09/07/23 15:31 09/07/23 15:31
I&O
09/06/23 09/07/23 09/08/23
06:59 06:59 06:59
Intake Total 1200 / 1200
Output Total 750 / 750 1250 / 1250
Balance -750 / -750 -50 / -50
--- NOTE | 2023-09-07 16:23 | W.PN.UPDATE ---
Update Note
Progress Note Update
Seen and evaluated. See full consultation note. Well-known to our service. Left heel persistent wound. MRI findings concerning for osteomyelitis. Still has palpable graft pulse on exam. Arterial duplex reviewed. Plan/ Discussed with him plan
for arteriogram for tomorrow. Attempted angioplasty of potential stenosis if feasible. I did discuss frankly with him that his bypass was to a diseased vessel and there may not be a reasonable or safe angioplasty option. He understands that. In
addition would plan heel debridement tomorrow. I also discussed with him that osteomyelitis of the heel/calcaneus raises significant risk for limb loss. He understands as well. Dr. Reynolds to plan tomorrow left lower extremity angiogram with
possible angioplasty if safe/feasible, as well as concomitant heel debridement. Appreciate ID evaluation and plan for potential antibiotics long-term for osteomyelitis.
[2023-09-07] MEDS: TYLENOL 650 MG PO (16:34)
[2023-09-07] MEDS: JARDIANCE 10 MG PO (17:21)
[2023-09-07] MEDS: TOPROL XL 50 MG PO (17:21)
[2023-09-07] MEDS: ZYRTEC 10 MG PO (17:21)
[2023-09-07] MEDS: NEURONTIN 300 MG PO (17:21)
[2023-09-07] MEDS: LOVENOX 40 MG SC (17:24)
[2023-09-07 23:20] VITALS: BP 128/58
[2023-09-08] VITALS (19 sets, daily range): BP systolic 70–134; BP diastolic 46–83; PULSE 86; O2SAT 97; BMI 21.1
[2023-09-08] MEDS: UNASYN IV ×4 (04:26→21:41)
[2023-09-08 06:57] LABS: % Eosinophils 10.2 % (0-6); % Immature Granulocytes 0.3 % (0-0.5); % Lymphocytes 19.9 % (20.5-51.1); % Monocytes 11.3 % (1.7-9.3); % Neutrophils 57.3 % (42.2-75.2); Absolute Basophils 0.1 10^3/uL (0-0.2); Absolute Eosinophils 0.6 10^3/uL (0-0.7); Absolute Lymphocytes 1.3 10^3/uL (1.2-3.4); Absolute Monocytes 0.7 10^3/uL (0.1-0.6); Absolute Neutrophils 3.6 10^3/uL (1.4-6.5); Hematocrit 29.4 % (39.0-52.0); Hemoglobin 10.1 g/dL (13.0-18.0); Mean Corp Hgb Conc. 34.4 g/dL (33.0-37.0); Mean Corpuscular Hgb 34.5 pg (27.0-31.0); Mean Corpuscular Volume 100.3 fL (80.0-94.0); Mean Platelet Volume 9.5 fL (7.4-10.4); Nucleated Red Blood Cells % 0 % (-); Platelet Count 189 10^3/uL (130-400); Red Blood Cell Count 2.93 10^6/uL (4.70-6.10); Red Cell Dist. Width 15.3 % (11.5-14.5); White Blood Cell Count 6.3 10^3/uL (4.8-10.8)
[2023-09-08 07:19] LABS: Blood Urea Nitrogen 31 mg/dl (9-20); Calcium 9.4 mg/dl (8.4-10.2); Carbon Dioxide 24 mmol/L (22-30); Chloride 104 mmol/L (98-107); Estimated Creatinine Clearance 55 ml/min; Glucose 89 mg/dl (70-99); Magnesium 2.1 mg/dl (1.6-2.3); Potassium 4.1 mmol/L (3.5-5.1); Sodium 135 mmol/L (135-145); eGFR > 60.00
[2023-09-08] MEDS: SYMBICORT 160/4.5 MCG INHALER 2 PUFF INH ×2 (07:46→19:21)
[2023-09-08] MEDS: COLACE 100 MG PO ×2 (08:57→21:41)
[2023-09-08] MEDS: LIPITOR 10 MG PO (08:57)
[2023-09-08] MEDS: ZYLOPRIM 100 MG PO (08:58)
[2023-09-08] MEDS: FLOMAX 0.400000000000000022 MG PO (08:58)
[2023-09-08] MEDS: PLAVIX 75 MG PO (08:58)
[2023-09-08] MEDS: VITAMIN D3 (cholecalciferol) 25 MCG PO (08:58)
[2023-09-08] MEDS: SINGULAIR 10 MG PO (08:58)
[2023-09-08] MEDS: VITAMIN B-12 1000 MCG PO (08:58)
[2023-09-08] MEDS: SENOKOT 17.1999999999999993 MG PO ×2 (08:58→21:41)
[2023-09-08] MEDS: DIOVAN 20 MG PO (08:59)
[2023-09-08] MEDS: LASIX 40 MG PO (08:59)
[2023-09-08] MEDS: MIRALAX PO (09:00)
--- NOTE | 2023-09-08 09:59 | W.PN.ID1 ---
Date of Service
Date of Service: September 08, 2023
Today's Communication
request bone culture from the OR
continue unasyn
Assessment / Plan
Probable Osteomyelitis of the L Heel
PAD/CAD
- wound probes to bone
- wound culture polymicrobial sensitive e coli and an anaerobe
- requesting bone culture from the OR
- continue unasyn
- appreciate vascular surgery
- follow clinically
Chief Complaint
-: Other (probable osteomyelitis)
Subjective / Review of Systems
afebrile
bp stable
without leukocytosis
cr stable
blood cultures no growth to date
Vital Signs / Physical Exam
Vital Signs
Vital Signs
Temp Pulse Resp BP Pulse Ox
97.6 F 79 16 115/53 98
09/08/23 08:36 09/08/23 08:36 09/08/23 08:36 09/08/23 08:36 09/08/23 08:36
Physical Exam
Constitutional: No Acute Distress
Cardiovascular: Regular Rate
Pulmonary: Clear and Non Labored
Gastrointestinal: Non Tender and Normal Bowel Sounds
Skin: Warm and Dry; Negative Rash or Jaundice
Wound: Other (dressing clean, dry, intact)
Objective Data
Lab Data
Lab Results
09/08/23 06:13
09/08/23 06:14
Estimated Creat Clear 55 ml/min 09/08/23 06:14
Total Bilirubin 0.6 mg/dl (0.2-1.3) 09/05/23 17:04
AST 37 U/L (17-59) 09/05/23 17:04
ALT 19 U/L (0-50) 09/05/23 17:04
Alkaline Phosphatase 101 U/L (38-126) 09/05/23 17:04
Most recent labs reviewed.
Micro Results:
09/05/23 17:04 Blood Culture - Preliminary
Blood/Venous No Growth in 48 hours- Final report to follow
09/06/23 14:23 Blood Culture - Preliminary
Blood/Venous No Growth in 24 hours- Final report to follow
09/06/23 15:15 Wound Culture - Preliminary
Heel - Left Gram Stain - Preliminary
Care Review
Plan reviewed with: Physician (Dr Reynolds - requested bone culture)
--- NOTE | 2023-09-08 13:55 | W.PN.HOSP.TC ---
Today's Communication/Plan
-
Arteriogram and debridement
Assessment / Plan
Assessment / Plan
77-year-old male with ulcer left heel. Visiting nurse recommended that he go to the hospital.
seen earlier. Late note
On examination patient is awake and alert
Cardiovascular [id number] regular
Chest clear to auscultation
Abdomen soft and nontender
No edema bilateral ankle
Small ulcer right heel deep tissue injury
Left heel with an ulcer with an order, slough
JASON 08/18/2023-right lower extremity 0.62 consistent with moderate arterial insufficiency improved from prior study 0.50. TBI severely reduced 0.26 stable.
Left lower extremity JASON not performed secondary to lower extremity bypass. TBI moderate to severely reduced 0.37. No stenosis of common femoral through popliteal artery below popliteal more than 75% stenosis?
MRI-enhancement of the posterior inferior aspect of the calcaneus consistent with osteomyelitis in the area of the nonhealing ulcer. No abscess.
# Infected left heel wound-unstageable to stage IV
Osteomyelitis of the calcaneus per MRI
Patient has been followed by [facility] wound care and debrided weekly.
MRI of the foot to rule out osteomyelitis
Continue antibiotics IV
Wound culture Pseudomonas-defer AB change to ID. May need to broden
Deep tissue cx with Debridement.
Also Bx
For arteriogram and debridement
# Peripheral artery disease
History of left popliteal to dorsalis pedis bypass complicated with left inguinal infection/sepsis 05/29/2023
History of right common iliac and right popliteal stents
Arteriogram today
# Chronic pain narcotic dependent
Chronic back pain
Patient states that he does not take OxyContin anymore only oxycodone therefore we will stop.
Oxycodone 5 mg every 4 hours as needed for pain
# Coronary disease with history of CABG
Complicated by sternal debridement and pectoral flap
Continue Plavix, statin and beta-juan, valsartan
# Chronic heart failure with preserved ejection fraction
Continue Jardiance, Lasix, valsartan, beta-juan
# Persistent atrial fibrillation-continue beta-blockers and Eliquis
History of cardioversion and ablation in the past
# Pacemaker 2020
# Bioprosthetic aortic and mitral valve replacements
# COPD-no exacerbation
Continue budesonide/formoterol
# Chronic anemia-hemoglobin appears to be at baseline
Iron studies and B12 sufficient
# Hyperlipidemia-continue Lipitor
# Gout-continue allopurinol
# Prostate disease-continue Flomax
# Insomnia-continue trazodone
# History of vertigo
# History of cervical discectomy for herniated disc
# Psoriasis
# Ex-smoker
# DVT prophylaxis-Eliquis on hold anticipating surgical procedure. Lovenox 40 mg while Eliquis on hold
# Full code
Discussed with at bed side
Anticipated Discharge: > 48 hours
Subjective/Interval History
-
Date of Service: September 08, 2023
Objective Data
-
Labs:
Laboratory Results
09/08/23 09/08/23
06:13 06:14
WBC 6.3
Hgb 10.1 L
Hct 29.4 L
Plt Count 189
Sodium 135
Potassium 4.1
Chloride 104
Carbon Dioxide 24
BUN 31 H
Creatinine 1.1
Glucose 89
Calcium 9.4
Vital Signs:
Vital Signs
Temp Pulse Resp BP Pulse Ox
97.6 F 79 16 115/53 98
09/08/23 08:36 09/08/23 08:36 09/08/23 08:36 09/08/23 08:36 09/08/23 08:36
I&O
09/07/23 09/08/23 09/09/23
06:59 06:59 06:59
Intake Total 1200 / 1200 1200 / 1200
Output Total 1250 / 1250 1250 / 1250
Balance -50 / -50 -50 / -50
--- NOTE | 2023-09-08 14:30 | PN.CDI ---
CDI
- -
CDI:
Physician Documentation Request
Admit Date: 09/05/23 20:34
Dear Doctor Aric,
Patient admitted with Infected left heel wound
09/07 progress note states 'Osteomyelitis of the calcaneus per MRI
Clarify which of the following accurately represents the acuity of the
____ Acute
Chronic
____ Other
Use of terms such as suspected, likely, concern for, or probable (associated with a specific diagnosis that is being evaluated, monitored, or treated as if it exists) are acceptable and can be coded in the inpatient setting, when documented at the
time of discharge.
Thank you,
Eugenie Ho RN, BSN
CDI Specialist
tiger text
Please use your independent medical judgment in providing your response.
--- NOTE | 2023-09-08 15:16 | W.SUR.PREOP ---
Pre-Operative Surgical Note
-
I have examined this patient prior to the performance of the scheduled procedure.
The patient's condition is unchanged from the time of the current History and
Physical and the patient is able to undergo the scheduled procedure.
[2023-09-08] MEDS: SUBLIMAZE 25 MCG IV ×3 (16:59→17:49)
[2023-09-08] MEDS: DEMEROL 12.5 MG IV (17:24)
[2023-09-08] MEDS: NSS 1000 IV (17:29)
[2023-09-08] MEDS: SUBLIMAZE 50 MCG IV (17:37)
[2023-09-08] MEDS: DILAUDID 0.5 MG IV (17:56)
[2023-09-08] MEDS: ROXICODONE 5 MG PO (18:39)
--- NOTE | 2023-09-08 18:59 | W.IMMPOSTOP ---
Surgical Immed Post Op Note
-
Primary Surgeon: Santosh Reynolds III, MD
Assisting Surgeon: Ferny Retana MD
Pre-op Diagnosis: Non-healing L Heel Ulcer
Post-op Diagnosis: As above
Procedure Performed: Diagnostic LLE angiogram; L heel ulcer debridement
Anesthesia Type: General
Specimen / Cultures: NA
Estimated Blood Loss: 20cc
Complications: None
Operative Findings:
Patient was prepped and draped for both operations. Diagnostic LLE angiogram demonstrated completely occluded posterior foot circulation with minimal collateralization. Anterior circulation well supplied by previous bypass graft. No endovascular
intervention performed. Attention was then turned to patient's left heel ulcer. Sharp dissection was performed removing necrotic tissue and bone. A wound vac was placed postoperatively but switched to packing with gauze for hemostasis.
[2023-09-08] MEDS: NEURONTIN 300 MG PO (19:02)
[2023-09-08] MEDS: ZYRTEC 10 MG PO (19:02)
[2023-09-08] MEDS: JARDIANCE 10 MG PO (19:02)
[2023-09-08] MEDS: TOPROL XL 50 MG PO (19:02)
[2023-09-08] MEDS: LOVENOX 40 MG SC (19:02)
--- NOTE | 2023-09-08 19:09 | OR.RPT ---
Operative Report
Operative Report
Date of Operation: 09/08/2023
Pre Op Diagnosis: Critical limb threatening ischemia with nonhealing left heel wound and associated osteomyelitis
Post Op Diagnosis: Critical limb threatening ischemia with nonhealing left heel wound and associated osteomyelitis
Procedure:
1.) Selective catheterization of second-order lower extremity artery
2.) Diagnostic aortobiiliac arteriogram
3.) Diagnostic left lower extremity arteriogram
4.) Debridement of left heel wound including skin, subcutaneous tissue, fascia and bone (calcaneus) (wound dimensions 5 cm x 5 cm)
Surgeon: Santosh Reynolds III, MD
Pan Puller: Ferny Retana MD PGY-1
Anesthesia: Sedation with local
Complications: None
Estimated Blood Loss: 20 cc
History and Indications for Procedure: 77-year-old male with nonhealing left heel pressure wound. Imaging consistent with osteomyelitis. I brought him to the operating room for a diagnostic arteriogram with possible endovascular intervention and
debridement of his left heel wound.
Procedure in Detail: Elliot Haines was correctly identified and placed supine on the operating table. After adequate induction of anesthesia the bilateral groins were prepped and draped in the usual sterile fashion. The left ankle foot and heel was
also prepped and draped in the usual sterile fashion. A timeout was performed with the nursing and anesthesia staff confirming the patient's identity as well as the nature and laterality of the procedure.
The right common femoral artery was identified under ultrasound guidance. The artery was patent. The superior and inferior aspects of the femoral head were identified with radiographic guidance and marked at the skin level. The proposed puncture
site was infiltrated with local anesthesia. We saved a copy of the ultrasound image to the medical record. Under ultrasound guidance we accessed the right common femoral artery with a micropuncture needle and upsized to a 5 Fr sheath over a Bentson
wire. The wire and a [employer] hook flush catheter were advanced into the distal abdominal aorta and a diagnostic aorto-biiliac arteriogram was performed:
AORTO-ILIAC ARTERIOGRAM:
Aorta: Patent
Right common iliac artery: Patent stent. No stenosis identified
Right external iliac artery: Patent with no stenosis identified
Left common iliac artery: Patent stent. No stenosis identified
Left external iliac artery: Patent with no stenosis identified
Under roadmap guidance using a Glidewire and the [employer] hook catheter we selected the left common iliac artery and then the external iliac artery. A catheter was tracked up and over the aortic bifurcation and placed in the distal external iliac
artery. A diagnostic left lower extremity arteriogram was then performed which demonstrated the following:
LEFT LOWER EXTREMITY:
Common femoral artery: Patent with no stenosis identified.
Profunda femoral artery: Patent with no stenosis identified
Superficial femoral artery: Patent with no significant stenosis identified
Popliteal artery: Patent
Bypass: Patent. Proximal anastomosis to the popliteal artery is widely patent. Vein graft is patent. Distal anastomosis is patent. Stenosis identified at the distal anastomosis with a transition to a small diameter heavily calcified dorsalis
pedis artery. However contrast across the distal anastomosis and into the dorsalis pedis outflow is brisk.
Peroneal and posterior tibial arteries are occluded. There is no distal reconstitution of either. Severe small vessel disease in the plantar branch distribution is identified. Extremely poor perfusion to the left heel
Satisfied with this result we concluded the angiogram portion of the procedure. The sheath was secured in place with the plan to pull it in the recovery room.
I then cut a hole in the drape to expose the left foot and ankle. Using forceps and a 10 blade I debrided unhealthy appearing skin and soft tissue circumferentially around the wound. I debrided this sharply back to healthy bleeding edges
circumferentially. Necrotic tissue was sharply debrided circumferentially. There was exposed calcaneus at the base of the wound. Fascia was sharply debrided from the base of the wound using scissors and forceps. Using a rongeur I debrided
calcaneus back to healthier appearing bleeding bone. No gross purulence was identified. Total wound dimensions debrided were 5 cm x 5 cm. The wound was then irrigated with copious amounts of warm saline solution. Hemostasis was achieved in the
wound bed using electrocautery. A VAC dressing was applied.
The patient tolerated the procedure well and was taken to the recovery area in stable condition.
Attestation: I was present and responsible for the entire procedure.
Signed:
Santosh Reynolds III, MD
[facility]
[phone] (cell)
--- NOTE | 2023-09-08 20:00 | PTCARENOTE ---
@2000; Pt removed balbir bandage on left foot.Pt stated,'I thought it had to come off.'Pt is oriented to name and hospital.Pt is forgetful and was instructed earlier not to touch left foot dressing.Left foot dressing saturated with bright red
blood.Reinforced left foot dressing with 4x4,more Vee and new balbir wrap dressing.Med sitter ordered and in room to observe pt for wound safety.
[2023-09-09] MEDS: ROXICODONE 10 MG PO (00:52)
[2023-09-09 03:48] VITALS: BP 105/55
[2023-09-09] MEDS: UNASYN IV ×2 (04:50→09:10)
[2023-09-09] MEDS: ROXICODONE 5 MG PO ×3 (04:57→23:13)
[2023-09-09 06:00] VITALS: BMI 20.8
[2023-09-09 07:39] LABS: Hematocrit 27.4 % (39.0-52.0); Hemoglobin 9.1 g/dL (13.0-18.0); Mean Corp Hgb Conc. 33.2 g/dL (33.0-37.0); Mean Corpuscular Hgb 34.3 pg (27.0-31.0); Mean Corpuscular Volume 103.4 fL (80.0-94.0); Mean Platelet Volume 9.9 fL (7.4-10.4); Platelet Count 165 10^3/uL (130-400); Red Blood Cell Count 2.65 10^6/uL (4.70-6.10); Red Cell Dist. Width 15.5 % (11.5-14.5); White Blood Cell Count 6.9 10^3/uL (4.8-10.8)
[2023-09-09] MEDS: SYMBICORT 160/4.5 MCG INHALER 2 PUFF INH ×2 (07:47→18:32)
[2023-09-09] MEDS: SENOKOT 17.1999999999999993 MG PO ×2 (07:50→22:52)
[2023-09-09] MEDS: VITAMIN D3 (cholecalciferol) 25 MCG PO (07:50)
[2023-09-09] MEDS: SINGULAIR 10 MG PO (07:50)
[2023-09-09] MEDS: DIOVAN 20 MG PO (07:51)
[2023-09-09] MEDS: COLACE 100 MG PO ×2 (07:51→22:52)
[2023-09-09] MEDS: FLOMAX 0.400000000000000022 MG PO (07:52)
[2023-09-09] MEDS: ZYLOPRIM 100 MG PO (07:52)
[2023-09-09] MEDS: TYLENOL 650 MG PO (07:52)
[2023-09-09] MEDS: VITAMIN B-12 1000 MCG PO (07:52)
[2023-09-09] MEDS: PLAVIX 75 MG PO (07:52)
[2023-09-09] MEDS: LIPITOR 10 MG PO (07:52)
[2023-09-09] MEDS: LASIX 40 MG PO (07:52)
[2023-09-09 07:53] VITALS: BP 114/69
[2023-09-09] MEDS: MIRALAX 17 GRAMS PO (07:53)
[2023-09-09 08:04] LABS: Blood Urea Nitrogen 30 mg/dl (9-20); Calcium 8.6 mg/dl (8.4-10.2); Carbon Dioxide 24 mmol/L (22-30); Chloride 105 mmol/L (98-107); Estimated Creatinine Clearance 50 ml/min; Glucose 137 mg/dl (70-99); Potassium 4.5 mmol/L (3.5-5.1); Sodium 135 mmol/L (135-145); eGFR > 60.00
--- NOTE | 2023-09-09 11:31 | W.PN.HOSP.TC ---
Today's Communication/Plan
-
Dressing change vascular
Pain control
Continue antibiotics
Consider broadening antibiotics given the culture till deep tissue cultures are back.ID following.
Bleeding noted in the dressing-defer to vascular to change the dressings today.
Assessment / Plan
Assessment / Plan
77-year-old male with ulcer left heel. Visiting nurse recommended that he go to the hospital.
On examination patient is awake and alert
Cardiovascular [id number] regular
Chest clear to auscultation
Abdomen soft and nontender
No edema bilateral ankle
Small ulcer right heel deep tissue injury
Left heel with an ulcer with an order, slough
JASON 08/18/2023-right lower extremity 0.62 consistent with moderate arterial insufficiency improved from prior study 0.50. TBI severely reduced 0.26 stable.
Left lower extremity JASON not performed secondary to lower extremity bypass. TBI moderate to severely reduced 0.37. No stenosis of common femoral through popliteal artery below popliteal more than 75% stenosis?
MRI-enhancement of the posterior inferior aspect of the calcaneus consistent with osteomyelitis in the area of the nonhealing ulcer. No abscess.
# Infected left heel wound-unstageable to stage IV
Osteomyelitis of the calcaneus per MRI
Patient has been followed by [facility] wound care and debrided weekly.
MRI of the foot - osteomyelitis
Status post arteriogram 09/08/2023-no vascular interventions needed
Status post debridement of the wound
OR cultures pending pathology also pending
Superficial wound cultures with Pseudomonas and E. coli
Consider broadening antibiotics given the culture till deep tissue cultures are back.
Bleeding noted in the dressing-defer to vascular to change the dressings today.
# Peripheral artery disease
Clinically limb-threatening ischemia with nonhealing left heel wound
History of left popliteal to dorsalis pedis bypass complicated with left inguinal infection/sepsis 05/29/2023
History of right common iliac and right popliteal stents
Arteriogram 09/08/23- no interventions
# Chronic pain narcotic dependent
Chronic back pain
Patient states that he does not take OxyContin anymore only oxycodone therefore stopped
Gave one dose today
Oxycodone 5 mg every 4 hours as needed for pain
# Coronary disease with history of CABG
Complicated by sternal debridement and pectoral flap
Continue Plavix, statin and beta-juan, valsartan
# Chronic heart failure with preserved ejection fraction
Continue Jardiance, Lasix, valsartan, beta-juan
# Persistent atrial fibrillation-continue beta-blockers and Eliquis
History of cardioversion and ablation in the past
# Pacemaker 2020
# Bioprosthetic aortic and mitral valve replacements
# COPD-no exacerbation
Continue budesonide/formoterol
# Chronic anemia-hemoglobin appears to be at baseline
Iron studies and B12 sufficient
# Hyperlipidemia-continue Lipitor
# Gout-continue allopurinol
# Prostate disease-continue Flomax
# Insomnia-continue trazodone
# History of vertigo
# History of cervical discectomy for herniated disc
# Psoriasis
# Ex-smoker
# DVT prophylaxis-Eliquis on hold anticipating surgical procedure. Lovenox 40 mg while Eliquis on hold
# Full code
Anticipated Discharge: 24 - 48 hours
Subjective/Interval History
-
Date of Service: September 09, 2023
Objective Data
-
Labs:
Laboratory Results
09/09/23
06:56
WBC 6.9
Hgb 9.1 L
Hct 27.4 L
Plt Count 165
Sodium 135
Potassium 4.5
Chloride 105
Carbon Dioxide 24
BUN 30 H
Creatinine 1.2
Glucose 137 H
Calcium 8.6
Vital Signs:
Vital Signs
Temp Pulse Resp BP Pulse Ox
98.2 F 113 18 114/69 96
09/09/23 07:53 09/09/23 07:53 09/09/23 07:53 09/09/23 07:53 09/09/23 07:53
I&O
09/08/23 09/09/23 09/10/23
06:59 06:59 06:59
Intake Total 1200 / 1200 1520 / 1520
Output Total 1250 / 1250 400 / 400
Balance -50 / -50 1120 / 1120
[2023-09-09] MEDS: OXYCONTIN (CONTROLLED RELEASE) 10 MG PO (11:45)
--- NOTE | 2023-09-09 11:55 | W.PN.ID1 ---
Date of Service
Date of Service: September 09, 2023
Today's Communication
Change Unasyn to meropenem.
Assessment / Plan
Osteomyelitis of the L Heel
PAD/CAD
-09/07 s/p LLE angiogram, left heel ulcer debridement. OR bone cx pending
- wound probes to bone
- 09/06 wound culture E. coli, Pseudomonas x 2 strains, anaerobe
- Broaden Unasyn to meropenem 1g IV q8 pending OR bone cx result.
- appreciate vascular surgery
- follow clinically
Chief Complaint
-: Other (probable osteomyelitis)
Vital Signs / Physical Exam
Vital Signs
Vital Signs
Temp Pulse Resp BP Pulse Ox
98.2 F 113 18 114/69 96
09/09/23 07:53 09/09/23 07:53 09/09/23 07:53 09/09/23 07:53 09/09/23 07:53
Physical Exam
Constitutional: No Acute Distress
Gastrointestinal: Soft and Non Tender
Wound: Other (Left foot dressing in place with some blood strike-through)
Objective Data
Lab Data
Lab Results
09/09/23 06:56
09/09/23 06:56
Estimated Creat Clear 50 ml/min 09/09/23 06:56
Total Bilirubin 0.6 mg/dl (0.2-1.3) 09/05/23 17:04
AST 37 U/L (17-59) 09/05/23 17:04
ALT 19 U/L (0-50) 09/05/23 17:04
Alkaline Phosphatase 101 U/L (38-126) 09/05/23 17:04
Most recent labs reviewed.
Micro Results:
09/06/23 15:15 Wound Culture - Final
Heel - Left Escherichia coli
Pseudomonas aeruginosa
Pseudomonas aeruginosa#2
Gram Stain - Final
09/08/23 16:30 Tissue Culture - Pending
Heel - Left Gram Stain - Preliminary
09/05/23 17:04 Blood Culture - Preliminary
Blood/Venous No Growth in 72 hours- Final report to follow
09/06/23 14:23 Blood Culture - Preliminary
Blood/Venous No Growth in 48 hours- Final report to follow
--- NOTE | 2023-09-09 13:48 | W.PN.VS ---
Today's Communication / Plan
-
as above
Assessment/Plan
-
dressing changed, wound packed for hemostasis
follow up cultures and ID recs
Subjective Data
-
Date of Service: September 09, 2023
No acute events. Patient denies pain.
Objective Data
-
Vital Signs
Temp Pulse Resp BP Pulse Ox
98.2 F 113 18 114/69 96
09/09/23 07:53 09/09/23 07:53 09/09/23 07:53 09/09/23 07:53 09/09/23 07:53
Intake and Output
09/08/23 09/09/23 09/10/23
06:59 06:59 06:59
Intake Total 1200 / 1200 1520 / 1520
Output Total 1250 / 1250 400 / 400
Balance -50 / -50 1120 / 1120
Intake:
Oral fluids 1200 / 1200 480 / 480
IV fluids (Total) 800 / 800
ns 100 / 100
IV piggybacks 240 / 240
Output:
Urine, Voided 1250 / 1250 400 / 400
Lab Results
09/09/23 06:56
09/09/23 06:56
Calcium 8.6 mg/dl (8.4-10.2) 09/09/23 06:56
Magnesium 2.1 mg/dl (1.6-2.3) 09/08/23 06:14
Total Bilirubin 0.6 mg/dl (0.2-1.3) 09/05/23 17:04
AST 37 U/L (17-59) 09/05/23 17:04
ALT 19 U/L (0-50) 09/05/23 17:04
Alkaline Phosphatase 101 U/L (38-126) 09/05/23 17:04
Total Protein 7.0 g/dl (6.3-8.2) 09/05/23 17:04
Albumin 3.6 g/dl (3.5-5.0) 09/05/23 17:04
Physical Exam
-
Right heel wound clean, some oozing from wound edges
[2023-09-09] MEDS: MERREM 1000 MG IV ×2 (14:33→22:53)
[2023-09-09] MEDS: STERILE WATER FOR INJECTION 20 ML IV ×2 (14:34→22:53)
[2023-09-09 16:32] VITALS: BP 87/37
[2023-09-09] MEDS: LOVENOX 40 MG SC (17:00)
[2023-09-09] MEDS: NEURONTIN 300 MG PO (17:00)
[2023-09-09] MEDS: JARDIANCE 10 MG PO (17:00)
[2023-09-09] MEDS: TOPROL XL PO (17:02)
[2023-09-09] MEDS: ZYRTEC 10 MG PO (17:02)
[2023-09-09] MEDS: FLUSH (NSS) 2 FLUSH IV (22:53)
[2023-09-09 23:35] VITALS: BP 109/58
[2023-09-10 06:00] VITALS: BMI 21.3
[2023-09-10] MEDS: MERREM 1000 MG IV (06:25)
[2023-09-10] MEDS: STERILE WATER FOR INJECTION 20 ML IV (06:25)
[2023-09-10] MEDS: FLUSH (NSS) 2 FLUSH IV ×2 (06:26→22:57)
[2023-09-10 07:16] LABS: Hematocrit 24.5 % (39.0-52.0); Hemoglobin 8.2 g/dL (13.0-18.0); Mean Corp Hgb Conc. 33.5 g/dL (33.0-37.0); Mean Corpuscular Hgb 34.6 pg (27.0-31.0); Mean Corpuscular Volume 103.4 fL (80.0-94.0); Mean Platelet Volume 9.9 fL (7.4-10.4); Platelet Count 147 10^3/uL (130-400); Red Blood Cell Count 2.37 10^6/uL (4.70-6.10); Red Cell Dist. Width 15.5 % (11.5-14.5); White Blood Cell Count 6.9 10^3/uL (4.8-10.8)
[2023-09-10 07:37] VITALS: BP 93/55
--- NOTE | 2023-09-10 07:52 | W.PN.VS ---
Today's Communication / Plan
-
as above
Assessment/Plan
-
dressing changed, wound packed wet to dry
follow up cultures and ID recs
likley vac tomorrow
Subjective Data
-
Date of Service: September 10, 2023
No acute events. No further saturation of heel bandage
Objective Data
-
Vital Signs
Temp Pulse Resp BP Pulse Ox
97.5 F 72 18 93/55 96
09/10/23 07:37 09/10/23 07:37 09/10/23 07:37 09/10/23 07:37 09/10/23 07:37
Intake and Output
09/09/23 09/10/23 09/11/23
06:59 06:59 06:59
Intake Total 1520 / 1520 1740 / 1740
Output Total 400 / 400 400 / 400
Balance 1120 / 1120 1340 / 1340
Intake:
Oral fluids 480 / 480 1740 / 1740
IV fluids (Total) 800 / 800
ns 100 / 100
IV piggybacks 240 / 240
Output:
Urine, Voided 400 / 400 400 / 400
Other:
Number of approximated MODERATE 2
amounts of urine
Lab Results
09/10/23 06:27
Calcium 8.6 mg/dl (8.4-10.2) 09/09/23 06:56
Magnesium 2.1 mg/dl (1.6-2.3) 09/08/23 06:14
Total Bilirubin 0.6 mg/dl (0.2-1.3) 09/05/23 17:04
AST 37 U/L (17-59) 09/05/23 17:04
ALT 19 U/L (0-50) 09/05/23 17:04
Alkaline Phosphatase 101 U/L (38-126) 09/05/23 17:04
Total Protein 7.0 g/dl (6.3-8.2) 09/05/23 17:04
Albumin 3.6 g/dl (3.5-5.0) 09/05/23 17:04
Physical Exam
-
NAD
heel wound clean. Oozing significantly decreased
[2023-09-10] MEDS: SYMBICORT 160/4.5 MCG INHALER 2 PUFF INH ×2 (07:59→20:19)
[2023-09-10 08:04] LABS: Blood Urea Nitrogen 52 mg/dl (9-20); Calcium 8.9 mg/dl (8.4-10.2); Carbon Dioxide 26 mmol/L (22-30); Chloride 100 mmol/L (98-107); Estimated Creatinine Clearance 36 ml/min; Glucose 85 mg/dl (70-99); Potassium 4.2 mmol/L (3.5-5.1); Sodium 135 mmol/L (135-145); eGFR 40.75
[2023-09-10] MEDS: ROXICODONE 5 MG PO ×3 (08:22→19:10)
[2023-09-10] MEDS: OXYCONTIN (CONTROLLED RELEASE) 10 MG PO (08:50)
[2023-09-10 08:52] VITALS: BP 107/68
[2023-09-10] MEDS: DIOVAN PO (08:53)
[2023-09-10] MEDS: FLOMAX 0.400000000000000022 MG PO (08:54)
[2023-09-10] MEDS: PLAVIX 75 MG PO (08:55)
[2023-09-10] MEDS: VITAMIN B-12 1000 MCG PO (08:55)
[2023-09-10] MEDS: SENOKOT 17.1999999999999993 MG PO ×2 (08:56→19:08)
[2023-09-10] MEDS: LIPITOR 10 MG PO (08:58)
[2023-09-10] MEDS: VITAMIN D3 (cholecalciferol) 25 MCG PO (08:58)
[2023-09-10] MEDS: SINGULAIR 10 MG PO (08:58)
[2023-09-10] MEDS: COLACE 100 MG PO ×2 (08:58→19:08)
[2023-09-10] MEDS: LASIX 40 MG PO (08:58)
[2023-09-10] MEDS: MIRALAX 17 GRAMS PO (08:59)
[2023-09-10] MEDS: ZYLOPRIM 100 MG PO (08:59)
[2023-09-10] MEDS: DILAUDID 0.25 MG IV (11:53)
[2023-09-10] MEDS: MILK OF MAGNESIA 30 ML PO (11:56)
[2023-09-10] MEDS: NSS 1000 IV (12:04)
--- NOTE | 2023-09-10 12:10 | W.PN.HOSP.TC ---
Today's Communication/Plan
-
Hold valsartan and Lasix
Hold Eliquis until cleared from vascular
IV fluids 1 L
Pain control
Assessment / Plan
Assessment / Plan
77-year-old male with ulcer left heel. Visiting nurse recommended that he go to the hospital.
On examination patient is awake and alert
Cardiovascular [id number] irregular
Chest clear to auscultation
Abdomen soft and nontender
No edema bilateral ankle
JASON 08/18/2023-right lower extremity 0.62 consistent with moderate arterial insufficiency improved from prior study 0.50. TBI severely reduced 0.26 stable.
Left lower extremity JASON not performed secondary to lower extremity bypass. TBI moderate to severely reduced 0.37. No stenosis of common femoral through popliteal artery below popliteal more than 75% stenosis?
MRI-enhancement of the posterior inferior aspect of the calcaneus consistent with osteomyelitis in the area of the nonhealing ulcer. No abscess.
# Infected left heel wound-unstageable to stage IV
Osteomyelitis of the calcaneus per MRI
Patient has been followed by [facility] wound care and debrided weekly.
MRI of the foot - osteomyelitis
Status post arteriogram 09/08/2023-no vascular interventions needed
Status post debridement of the wound
OR cultures with E. coli
Pathology also pending
Superficial wound cultures with Pseudomonas and E. coli
Continues to have bleeding with reinforcement of dressing and Uday bandage.
Wound VAC going to be applied tomorrow
Meropenem started-agree with broadening
# Peripheral artery disease
Clinically limb-threatening ischemia with nonhealing left heel wound
History of left popliteal to dorsalis pedis bypass complicated with left inguinal infection/sepsis 05/29/2023
History of right common iliac and right popliteal stents
Arteriogram 09/08/23- no interventions
# Acute kidney injury-? IV dye related from arteriogram
Bladder scan
Hold Lasix and valsartan
IV fluids 1 L
# Chronic pain narcotic dependent
Chronic back pain
Patient states that he does not take OxyContin anymore only oxycodone therefore stopped
Gave one dose today
Oxycodone 5 mg every 4 hours as needed for pain
Dilaudid as the patient's pain is severe
# Coronary disease with history of CABG
Complicated by sternal debridement and pectoral flap
Continue Plavix, statin and beta-juan, valsartan
# Chronic heart failure with preserved ejection fraction
Continue Jardiance and beta-juan
Hold Lasix, valsartan, due to TRISTAN
# Persistent atrial fibrillation-continue beta-blockers and hold Eliquis
History of cardioversion and ablation in the past
Eliquis on hold because of bleeding
On Lovenox subcu
Restart Eliquis when okay with vascular
# Pacemaker 2020
# Bioprosthetic aortic and mitral valve replacements
# Constipation resolved-patient had a bowel movement 2 days ago
# COPD-no exacerbation
Continue budesonide/formoterol
# Chronic anemia-hemoglobin appears to be at baseline
Iron studies and B12 sufficient
# Hyperlipidemia-continue Lipitor
# Gout-continue allopurinol
# Prostate disease-continue Flomax
# Insomnia-continue trazodone
# History of vertigo
# History of cervical discectomy for herniated disc
# Psoriasis
# Ex-smoker
# DVT prophylaxis-Eliquis on hold because of bleeding
On Lovenox subcu
Restart Eliquis when okay with vascular
# Full code
Discussed with and son at bedside
Discussed with RN at bed side
D/w Vascular
Anticipated Discharge: > 48 hours
Subjective/Interval History
-
Date of Service: September 10, 2023
Objective Data
-
Labs:
Laboratory Results
09/10/23
06:27
WBC 6.9
Hgb 8.2 L
Hct 24.5 L
Plt Count 147
Sodium 135
Potassium 4.2
Chloride 100
Carbon Dioxide 26
BUN 52 H
Creatinine 1.7 H
Glucose 85
Calcium 8.9
Vital Signs:
Vital Signs
Temp Pulse Resp BP Pulse Ox
97.5 F 102 20 107/68 95
09/10/23 07:37 09/10/23 08:52 09/10/23 08:01 09/10/23 08:52 09/10/23 08:01
I&O
09/09/23 09/10/23 09/11/23
06:59 06:59 06:59
Intake Total 1520 / 1520 1740 / 1740
Output Total 400 / 400 400 / 400
Balance 1120 / 1120 1340 / 1340
--- NOTE | 2023-09-10 13:42 | W.PN.ID1 ---
Date of Service
Date of Service: September 10, 2023
Today's Communication
Renally adjusted meropenem dose.
Assessment / Plan
Osteomyelitis of the L Heel
PAD/CAD
-09/07 s/p LLE angiogram, left heel ulcer debridement. OR bone cx GNR
- wound probes to bone
- 09/06 wound culture E. coli, Pseudomonas x 2 strains, anaerobe
- Broadened Unasyn to Meropenem on 09/08.
-TRISTAN today- decreased meropenem dose tp 500mg IV q8.
- appreciate vascular surgery
- follow clinically
Chief Complaint
-: Other (probable osteomyelitis)
Subjective / Review of Systems
No new complaints.
Vital Signs / Physical Exam
Vital Signs
Vital Signs
Temp Pulse Resp BP Pulse Ox
97.5 F 102 20 107/68 95
09/10/23 07:37 09/10/23 08:52 09/10/23 08:01 09/10/23 08:52 09/10/23 08:30
Physical Exam
Constitutional: No Acute Distress
Pulmonary: Clear
Gastrointestinal: Soft, Non Tender and Non Distended
Neurological: AO x 3
Objective Data
Lab Data
Lab Results
09/10/23 06:27
09/10/23 06:27
Estimated Creat Clear 36 ml/min 09/10/23 06:27
Total Bilirubin 0.6 mg/dl (0.2-1.3) 09/05/23 17:04
AST 37 U/L (17-59) 09/05/23 17:04
ALT 19 U/L (0-50) 09/05/23 17:04
Alkaline Phosphatase 101 U/L (38-126) 09/05/23 17:04
Most recent labs reviewed.
Micro Results:
09/08/23 16:30 Tissue Culture
Heel - Left Gram negative bacilli
Gram Stain - Final
09/05/23 17:04 Blood Culture - Preliminary
Blood/Venous No Growth in 4 days- Final report to follow
09/06/23 14:23 Blood Culture - Preliminary
Blood/Venous No Growth in 72 hours- Final report to follow
09/06/23 15:15 Wound Culture - Final
Heel - Left Escherichia coli
Pseudomonas aeruginosa
Pseudomonas aeruginosa#2
Gram Stain - Final
[2023-09-10 16:05] VITALS: BP 77/42
[2023-09-10] MEDS: NSS 250 IV (17:45)
[2023-09-10] MEDS: NEURONTIN 300 MG PO (17:46)
[2023-09-10] MEDS: JARDIANCE 10 MG PO (17:46)
[2023-09-10] MEDS: LOVENOX 40 MG SC (17:46)
[2023-09-10] MEDS: ZYRTEC 10 MG PO (17:47)
[2023-09-10 18:15] VITALS: BP 100/44
[2023-09-10] MEDS: STERILE WATER FOR INJECTION 10 ML IV (22:49)
[2023-09-10] MEDS: MERREM 500 MG IV (22:49)
[2023-09-10] MEDS: LOPRESSOR 12.5 MG PO (22:54)
[2023-09-10] MEDS: DESYREL 50 MG PO (22:56)
[2023-09-10 23:15] VITALS: BP 102/58
[2023-09-11 00:07] VITALS: BP 102/58
[2023-09-11 06:14] LABS: Hematocrit 22.8 % (39.0-52.0); Hemoglobin 7.7 g/dL (13.0-18.0); Mean Corp Hgb Conc. 33.8 g/dL (33.0-37.0); Mean Corpuscular Hgb 34.7 pg (27.0-31.0); Mean Corpuscular Volume 102.7 fL (80.0-94.0); Mean Platelet Volume 9.8 fL (7.4-10.4); Platelet Count 117 10^3/uL (130-400); Red Blood Cell Count 2.22 10^6/uL (4.70-6.10); Red Cell Dist. Width 15.4 % (11.5-14.5); White Blood Cell Count 5.8 10^3/uL (4.8-10.8)
[2023-09-11] MEDS: MERREM 500 MG IV ×3 (06:15→22:54)
[2023-09-11] MEDS: FLUSH (NSS) 2 FLUSH IV (06:15)
[2023-09-11] MEDS: STERILE WATER FOR INJECTION 10 ML IV ×3 (06:15→22:54)
[2023-09-11 06:35] LABS: Blood Urea Nitrogen 49 mg/dl (9-20); Calcium 8.8 mg/dl (8.4-10.2); Carbon Dioxide 25 mmol/L (22-30); Chloride 103 mmol/L (98-107); Estimated Creatinine Clearance 41 ml/min; Glucose 108 mg/dl (70-99); Potassium 4.2 mmol/L (3.5-5.1); Sodium 136 mmol/L (135-145); eGFR 47.36
[2023-09-11 07:00] VITALS: BP 113/68
[2023-09-11] MEDS: SYMBICORT 160/4.5 MCG INHALER 2 PUFF INH ×2 (07:57→20:09)
[2023-09-11] MEDS: SENOKOT 17.1999999999999993 MG PO (08:37)
[2023-09-11] MEDS: FLOMAX 0.400000000000000022 MG PO (08:37)
[2023-09-11] MEDS: MIRALAX 17 GRAMS PO (08:37)
[2023-09-11] MEDS: PLAVIX 75 MG PO (08:37)
[2023-09-11] MEDS: LIPITOR 10 MG PO (08:37)
[2023-09-11] MEDS: VITAMIN D3 (cholecalciferol) 25 MCG PO (08:37)
[2023-09-11] MEDS: SINGULAIR 10 MG PO (08:37)
[2023-09-11] MEDS: COLACE 100 MG PO (08:37)
[2023-09-11] MEDS: VITAMIN B-12 1000 MCG PO (08:39)
[2023-09-11] MEDS: ZYLOPRIM 100 MG PO (08:39)
--- NOTE | 2023-09-11 09:47 | W.PN.HOSP.TC ---
Addendum entered and electronically signed by Saadia Chavez MD 09/11/23 14:30:
# Infected left heel wound- unstageable to stage IV, unclear type
# Acute on chronic osteomyelitis of the calcaneus
Original Note:
Today's Communication/Plan
-
see A/P
Assessment / Plan
Assessment / Plan
77-year-old male with left heel ulcer. Visiting nurse recommended admission.
JASON 08/18/2023
Right lower extremity 0.62 consistent with moderate arterial insufficiency improved from prior study 0.50. TBI severely reduced 0.26 stable.
Left lower extremity JASON not performed secondary to lower extremity bypass. TBI moderate to severely reduced 0.37. No stenosis of common femoral through popliteal artery below popliteal more than 75% stenosis?
MRI-enhancement of the posterior inferior aspect of the calcaneus consistent with osteomyelitis in the area of the nonhealing ulcer. No abscess.
A/P:
# Infected left heel wound- unstageable to stage IV
# Osteomyelitis of the Left calcaneus per MRI
Patient has been followed by [facility] wound care and debrided weekly.
Status post arteriogram 09/08/2023- no vascular interventions needed
Status post L heel debridement of the wound
OR cultures with E. coli
Pathology pending
Superficial wound cultures with Pseudomonas and E. coli
Cont Merrem per ID
for Wound VAC placement
# Peripheral artery disease, clinically limb-threatening ischemia with nonhealing left heel wound
# History of left popliteal to dorsalis pedis bypass complicated with left inguinal infection/sepsis 05/29/2023
# History of right common iliac and right popliteal stents
Arteriogram 09/08/23- no interventions
# Acute kidney injury- ?IV dye related from arteriogram
Cont Bladder scan
Hold Lasix and valsartan
Cont gentle IVF
# Acute anemia, related to OR debridement vs dilutional from IVF
Cont to trend Hgb and transfuse 1 units for Hgb < 7
# Chronic pain with narcotic dependence
# Chronic back pain
Patient states that he does not take OxyContin anymore only oxycodone, therefore stopped OxyContin
Oxycodone 5 mg every 4 hours as needed for pain
Dilaudid for severe pain
Cont [employer] gabapentin 300 mg HS and add 100 mg daily
# Coronary disease with history of CABG, complicated by sternal debridement and pectoral flap
Continue Plavix, statin and beta-juan
valsartan on hold with TRISTAN
# Chronic heart failure with preserved ejection fraction
Continue Jardiance and beta-juan
Hold Lasix, valsartan due to TRISTAN
# Persistent atrial fibrillation
# History of cardioversion and ablation in the past
continue beta-juan
hold Eliquis (resume when OK by vascular), on Lovenox subcu
Restart Eliquis when okay with vascular
# Pacemaker 2020
# Bioprosthetic aortic and mitral valve replacements
# Constipation has resolved
# COPD- not in exacerbation
Continue budesonide/formoterol
# Chronic anemia
Iron studies and B12 sufficient
# Hyperlipidemia-continue Lipitor
# Gout-continue allopurinol
# Prostate disease-continue Flomax
# Insomnia-continue trazodone
# History of vertigo
# History of cervical discectomy for herniated disc
# Psoriasis
# Ex-smoker
DVT prophylaxis-Eliquis on hold because of bleeding; on Lovenox subcu. Restart Eliquis when okay with vascular
Full code
Updated on the phone
Discussed with RN
total time spent 55 min
Anticipated Discharge: > 48 hours
Subjective/Interval History
-
Date of Service: September 11, 2023
Objective Data
-
Labs:
Laboratory Results
09/11/23
05:55
WBC 5.8
Hgb 7.7 L
Hct 22.8 L
Plt Count 117 L D
Sodium 136
Potassium 4.2
Chloride 103
Carbon Dioxide 25
BUN 49 H
Creatinine 1.5 H
Glucose 108 H
Calcium 8.8
Vital Signs:
Vital Signs
Temp Pulse Resp BP Pulse Ox
36.3 C 74 18 113/68 94
09/11/23 07:00 09/11/23 08:01 09/11/23 08:01 09/11/23 07:00 09/11/23 08:01
I&O
09/10/23 09/11/23 09/12/23
06:59 06:59 06:59
Intake Total 1740 / 1740 820 / 820
Output Total 400 / 400 850 / 850
Balance 1340 / 1340 -30 / -30
Review of Systems
-
All other systems: Reviewed and negative
Physical Exam
-
General: Well Developed, No Apparent Distress, Comfortable, Conversant and Appears Chronically Ill
HEENT: Normocephalic, Atraumatic and Moist Mucous Membranes
Respiratory: Clear to Auscultation and Non Labored Respirations; Negative Accessory Resp Muscle Use
Cardiac: S1/S2 and Irregular Rhythm
GI: Soft, Nontender, Nondistended and Normal Bowel Sounds
Rectal: Deferred by Provider
Musculoskeletal: No Clubbing, No Cyanosis, Edema, Left Upper Extrem and Edema, Right Lower Extrem
Skin: Warm
Neuro: Awake and Nonfocal/Grossly Intact
Psych: Calm and Intact Judgement/Insight
Data Reviewed
-
Labs: Labs Reviewed by me
[2023-09-11] MEDS: ROXICODONE 5 MG PO ×2 (10:14→19:55)
[2023-09-11] MEDS: NEURONTIN 100 MG PO (10:38)
[2023-09-11] MEDS: NSS 1000 IV (10:39)
--- NOTE | 2023-09-11 10:40 | WOUNDNOTE ---
[facility] RN note: Patient's L heel ulcer continues to ooze sanguinous drainage. L dorsal proximal foot with purple ecchymotic area suspect from Vee/Uday wrap. Silicone border foam dressing applied. +Pedal pulses heard via portable Doppler. R heel deep
dermal stage 2 ulcer appears the same as last photo. Lower sacrum red and intact. Silicone border foam applied. Patient reports a good appetite. He is very thin. He can turn self in bed and lift legs off bed. Patient stated he doesn't do well with
heel relief boots. Heels off bed with pillows and an air chair cushion. Instructed patient pressure injury prevention measures. Reported continued bleeding from L heel ulcer to vascular МАРИЯ Wilks therefore, unable to place a wound vac today.
Dr. Sullivan and МАРИЯ Wilks was in to evaluate L heel and changed saline moistened gauze dressing with Uday wrap. Dr. Sullivan stated wound RN can evaluate to apply VAC tomorrow. Vac supplies left on shelf just inside patient's room. R heel dressing
changed.
--- NOTE | 2023-09-11 10:50 | WOUNDNOTE ---
[facility] RN note: Patient's L heel ulcer continues to ooze sanguinous drainage. L dorsal proximal foot with purple ecchymotic area suspect from Vee/Uday wrap. Silicone border foam dressing applied. +Pedal pulses heard via portable Doppler. R heel deep
dermal stage 2 ulcer smaller than last photo. Sacrum red (non blanchable) stage 1. Silicone border foam applied. Patient reports a good appetite. He is very thin. He can turn self in bed and lift legs off bed. Patient stated he doesn't do well with
heel relief boots. Heels off bed with pillows and an air chair cushion. Instructed patient pressure injury prevention measures. Reported continued bleeding from L heel ulcer to vascular МАРИЯ Wilks therefore, unable to place a wound vac today.
Dr. Sullivan and МАРИЯ Wilks was in to evaluate L heel and changed saline moistened gauze dressing with Uday wrap. Dr. Sullivan stated wound RN can evaluate to apply VAC tomorrow. Vac supplies left on shelf just inside patient's room. R heel dressing
changed.
--- NOTE | 2023-09-11 11:00 | WOUNDNOTE ---
R HEEL (with photo flash)
--- NOTE | 2023-09-11 11:01 | WOUNDNOTE ---
L DORSAL PROXIMAL FOOT
--- NOTE | 2023-09-11 11:01 | WOUNDNOTE ---
L DORSAL PROXIMAL FOOT
--- NOTE | 2023-09-11 11:02 | WOUNDNOTE ---
L DORSAL FOOT/ANKLE
--- NOTE | 2023-09-11 11:04 | W.PN.VS ---
Addendum entered and electronically signed by Khadar Sullivan MD 09/11/23 15:03:
Seen and examined with NIK Wilks. Agree with findings as noted below. Dressing changed with her. Wound is clean. Slight oozing from skin edge or granulating base. Would continue wet-to-dry with Uday bandage. If improved tomorrow, possible VAC.
Original Note:
Today's Communication / Plan
-
Seen and assessed with Dr Sullivan
Assessment/Plan
-
POD 3 diagnostic angiogram and heel debridement
Plan:
-Wet-to-dry dressing today
-wound care to check on heel tomorrow for possibility of VAC placement
Subjective Data
-
Date of Service: September 11, 2023
Pt seen at bedside this am with Dr Sullivan. Pt offers no complaints at this time. bicycle taxi driver at bedside as well.
Objective Data
-
Vital Signs
Temp Pulse Resp BP Pulse Ox
97.4 F 74 18 113/68 100
09/11/23 07:00 09/11/23 08:01 09/11/23 08:01 09/11/23 07:00 09/11/23 10:54
Intake and Output
09/10/23 09/11/23 09/12/23
06:59 06:59 06:59
Intake Total 1740 / 1740 820 / 820
Output Total 400 / 400 850 / 850
Balance 1340 / 1340 -30 / -30
Intake:
Oral fluids 1740 / 1740 820 / 820
Output:
Urine, Voided 400 / 400 850 / 850
Other:
Number of approximated MODERATE 2
amounts of urine
How many times incontinent 2
SMALL amount urine
Lab Results
09/11/23 05:55
09/11/23 05:55
Calcium 8.8 mg/dl (8.4-10.2) 09/11/23 05:55
Magnesium 2.1 mg/dl (1.6-2.3) 09/08/23 06:14
Total Bilirubin 0.6 mg/dl (0.2-1.3) 09/05/23 17:04
AST 37 U/L (17-59) 09/05/23 17:04
ALT 19 U/L (0-50) 09/05/23 17:04
Alkaline Phosphatase 101 U/L (38-126) 09/05/23 17:04
Total Protein 7.0 g/dl (6.3-8.2) 09/05/23 17:04
Albumin 3.6 g/dl (3.5-5.0) 09/05/23 17:04
Physical Exam
-
AAOx3
No tachypnea on RA
Abd soft
Heel undressed, slight blood ooz from from skin edge of wound bed.
Wet-to-dry dressing applied
foot warm, pink, see wound care notes for image
--- NOTE | 2023-09-11 11:50 | PN.CDI ---
CDI
- -
CDI:
Physician Documentation Request
Admit Date: 09/05/23 20:34
Dear Ro Wilks,
09/07 Patient underwent arteriogram and debridement of left heel wound including skin, subcutaneous tissue, fascia and bone
Could you provide, in the progress notes further clarification regarding the debridement.
Please specify the type of debridement performed:
1. Excisional Debridement - defined as removal by excision of devitalized tissue, necrosis or slough
2. Non-excisional debridement - defined as removal of devitalized tissue, necrosis or slough by such methods as irrigation, brushing, scrubbing or washing.
Use of terms such as suspected, likely, concern for, or probable (associated with a specific diagnosis that is being evaluated, monitored, or treated as if it exists) are acceptable and can be coded in the inpatient setting, when documented at the
time of discharge.
Thank you,
Eugenie Ho RN, BSN
CDI Specialist
tiger text
Please use your independent medical judgment in providing your response.
--- NOTE | 2023-09-11 11:59 | CM ---
Placed a call to Janette in admissions at [facility] who stated that she can accept patient back for jean-pierre. He will need discharge summery faxed to her, prior to return home.
Plan: Case management will continue to follow and assist with discharge planning. Home with [facility].
--- NOTE | 2023-09-11 12:05 | PN.CDI ---
CDI
- -
CDI:
Physician Documentation Request
Admit Date: 09/05/23 20:34
Dear Doctor Kathy,
Patient admitted for ' Infected left heel wound-unstageable to stage IV'
Physician documentation of the type and location of wounds is required for compliant documentation. Based on the above clinical findings and your assessment, please provide the following in your progress note:
Type (etiology) of ulcer/wound:
- Arterial (ischemic) ulcer
- Traumatic wound
- Venous stasis ulcer
- Pressure (decubitus) ulcer
- Non-healing surgical wound
- Other
Use of terms such as suspected, likely, concern for, or probable (associated with a specific diagnosis that is being evaluated, monitored, or treated as if it exists) are acceptable and can be coded in the inpatient setting, when documented at the
time of discharge.
Thank you,
Eugenie Ho RN, BSN
CDI Specialist
tiger text
Please use your independent medical judgment in providing your response.
*Source: National Pressure Ulcer Advisory Panel (NPUAP)
--- NOTE | 2023-09-11 12:06 | PN.CDI ---
CDI
- -
CDI:
Physician Documentation Request
Admit Date: 09/05/23 20:34
Dear Doctor Kathy,
Patient admitted with Infected left heel wound
09/07 progress note states 'Osteomyelitis of the calcaneus per MRI
Please clarify which of the following accurately represents the acuity of the osteomyelitis
____ Acute
Chronic
____ Other
Use of terms such as suspected, likely, concern for, or probable (associated with a specific diagnosis that is being evaluated, monitored, or treated as if it exists) are acceptable and can be coded in the inpatient setting, when documented at the
time of discharge.
Thank you,
Eugenie Ho RN, BSN
CDI Specialist
tiger text
Please use your independent medical judgment in providing your response.
[2023-09-11 12:35] VITALS: BMI 22.1
[2023-09-11] MEDS: DILAUDID 0.25 MG IV (13:28)
--- NOTE | 2023-09-11 13:38 | W.PN.ID1 ---
Date of Service
Date of Service: September 11, 2023
Today's Communication
follow Cr - would like to see this normalize
tentatively 6 week of IV antibiotics
Assessment / Plan
Osteomyelitis of the L Heel
PAD/CAD
- 09/07 s/p LLE angiogram, left heel ulcer debridement. OR bone Cx: E coli
- wound probes to bone
- 09/06 wound culture E. coli, Pseudomonas x 2 strains, anaerobe
- Broadened Unasyn to Meropenem on 09/08.
- TRISTAN improving - continue meropenem dose at 500mg IV q8
- PICC line - scirpt on paper chart
- appreciate vascular surgery - note plans for possible vac
- follow clinically
Chief Complaint
-: Other (probable osteomyelitis)
Subjective / Review of Systems
afebrile
bp stable
without leukocytosis
plt 117
cr improving today now 1.5
Vital Signs / Physical Exam
Vital Signs
Vital Signs
Temp Pulse Resp BP Pulse Ox
97.4 F 74 18 113/68 100
09/11/23 07:00 09/11/23 08:01 09/11/23 08:01 09/11/23 07:00 09/11/23 10:54
Physical Exam
Constitutional: No Acute Distress
Cardiovascular: Regular Rate and S1/S2; Negative Murmur or Rub
Pulmonary: Clear and Symmetric; Negative Wheezes or Rales
Gastrointestinal: Soft, Non Tender, Non Distended and Normal Bowel Sounds
Skin: Warm and Dry; Negative Rash or Jaundice
Objective Data
Lab Data
Lab Results
09/11/23 05:55
09/11/23 05:55
Estimated Creat Clear 41 ml/min 09/11/23 05:55
Total Bilirubin 0.6 mg/dl (0.2-1.3) 09/05/23 17:04
AST 37 U/L (17-59) 09/05/23 17:04
ALT 19 U/L (0-50) 09/05/23 17:04
Alkaline Phosphatase 101 U/L (38-126) 09/05/23 17:04
Most recent labs reviewed.
Micro Results:
09/05/23 17:04 Blood Culture - Final
Blood/Venous No Growth - Final Report
09/06/23 14:23 Blood Culture - Preliminary
Blood/Venous No Growth in 4 days- Final report to follow
09/08/23 16:30 Tissue Culture - Final
Heel - Left Escherichia coli
Gram Stain - Final
09/06/23 15:15 Wound Culture - Final
Heel - Left Escherichia coli
Pseudomonas aeruginosa
Pseudomonas aeruginosa#2
Gram Stain - Final
[2023-09-11 15:00] VITALS: BP 110/40
--- NOTE | 2023-09-11 16:56 | WOUNDNOTE ---
WO RN note: Home vac paperwork faxed to [facility] from in case patient needs a home vac. Farhad texted [employer] [facility]ston re: patient will need a wound vac L heel when discharged and if he goes to SNF, Case Management will need to let
SNF know about getting a wound vac L heel (small black foam, pump setting 125mmhg continuous, change q 48-72 hrs). Naya Wheatley, WON RN to evaluate L heel for vac tomorrow.
[2023-09-11] MEDS: JARDIANCE 10 MG PO (17:08)
[2023-09-11] MEDS: NEURONTIN 300 MG PO (17:08)
[2023-09-11] MEDS: TOPROL XL 50 MG PO (17:08)
[2023-09-11] MEDS: LOVENOX 40 MG SC (17:09)
[2023-09-11] MEDS: ZYRTEC 10 MG PO (17:10)
[2023-09-11] MEDS: COLACE PO (19:51)
[2023-09-11] MEDS: SENOKOT PO (19:51)
[2023-09-11 23:42] VITALS: BP 128/49
[2023-09-12] MEDS: NSS 1000 IV (01:44)
[2023-09-12 05:20] LABS: Hematocrit 24.2 % (39.0-52.0); Hemoglobin 8.3 g/dL (13.0-18.0); Mean Corp Hgb Conc. 34.3 g/dL (33.0-37.0); Mean Corpuscular Hgb 34.2 pg (27.0-31.0); Mean Corpuscular Volume 99.6 fL (80.0-94.0); Mean Platelet Volume 9.9 fL (7.4-10.4); Platelet Count 141 10^3/uL (130-400); Red Blood Cell Count 2.43 10^6/uL (4.70-6.10); White Blood Cell Count 6.6 10^3/uL (4.8-10.8)
[2023-09-12 05:46] LABS: Blood Urea Nitrogen 35 mg/dl (9-20); Calcium 8.6 mg/dl (8.4-10.2); Carbon Dioxide 25 mmol/L (22-30); Chloride 104 mmol/L (98-107); Estimated Creatinine Clearance 63 ml/min; Glucose 99 mg/dl (70-99); Magnesium 2.4 mg/dl (1.6-2.3); Potassium 4.8 mmol/L (3.5-5.1); Sodium 135 mmol/L (135-145); eGFR > 60.00
[2023-09-12] MEDS: MERREM 500 MG IV (06:12)
[2023-09-12] MEDS: STERILE WATER FOR INJECTION 10 ML IV (06:12)
[2023-09-12 07:00] VITALS: BP 149/59
[2023-09-12 07:46] VITALS: BP 126/59
[2023-09-12] MEDS: SYMBICORT 160/4.5 MCG INHALER 2 PUFF INH ×2 (08:25→19:39)
[2023-09-12] MEDS: VITAMIN D3 (cholecalciferol) 25 MCG PO (09:03)
[2023-09-12] MEDS: NEURONTIN 100 MG PO (09:03)
[2023-09-12] MEDS: FLOMAX 0.400000000000000022 MG PO (09:03)
[2023-09-12] MEDS: SINGULAIR 10 MG PO (09:03)
[2023-09-12] MEDS: ZYLOPRIM 100 MG PO (09:04)
[2023-09-12] MEDS: VITAMIN B-12 1000 MCG PO (09:04)
[2023-09-12] MEDS: PLAVIX 75 MG PO (09:04)
[2023-09-12] MEDS: LIPITOR 10 MG PO (09:04)
[2023-09-12] MEDS: COLACE PO (09:06)
[2023-09-12] MEDS: MIRALAX PO (09:06)
[2023-09-12] MEDS: SENOKOT PO (09:06)
--- NOTE | 2023-09-12 09:32 | W.PN.UPDATE ---
Update Note
Progress Note Update
CDI:
Physician Documentation Request
Admit Date: 09/05/23 20:34
09/07 Patient underwent arteriogram and debridement of� left heel wound including skin, subcutaneous tissue, fascia and bone
Could you provide, in the progress notes further clarification regarding the debridement.
Please specify the type of debridement performed:
�Excisional Debridement�- defined as removal by excision of devitalized tissue, necrosis or slough
--- NOTE | 2023-09-12 10:29 | W.PN.HOSP.TC ---
Today's Communication/Plan
-
see A/P
Assessment / Plan
Assessment / Plan
77-year-old male with left heel ulcer. Visiting nurse recommended admission.
JASON 08/18/2023
Right lower extremity 0.62 consistent with moderate arterial insufficiency improved from prior study 0.50. TBI severely reduced 0.26 stable.
Left lower extremity JASON not performed secondary to lower extremity bypass. TBI moderate to severely reduced 0.37. No stenosis of common femoral through popliteal artery below popliteal more than 75% stenosis?
MRI-enhancement of the posterior inferior aspect of the calcaneus consistent with osteomyelitis in the area of the nonhealing ulcer. No abscess.
A/P:
# Infected left heel wound- unstageable to stage IV
# Osteomyelitis of the Left calcaneus per MRI
Patient has been followed by [facility] wound care and debrided weekly.
Status post arteriogram 09/08/2023- no vascular interventions needed
Status post L heel debridement of the wound
OR cultures with E. coli
Pathology pending
Superficial wound cultures with Pseudomonas and E. coli
Cont Merrem per ID , tentatively [address]
for Wound VAC placement , timing per vascular
# Peripheral artery disease, clinically limb-threatening ischemia with nonhealing left heel wound
# History of left popliteal to dorsalis pedis bypass complicated with left inguinal infection/sepsis 05/29/2023
# History of right common iliac and right popliteal stents
Arteriogram 09/08/23- no interventions
# Acute kidney injury, resolved
likely IV dye related from arteriogram
Cont Bladder scan
Cont to hold Lasix and valsartan, can consider resuming upon discharge
s/p gentle IVF
# Acute anemia, related to OR debridement vs dilutional from IVF
Cont to trend Hgb and transfuse 1 units for Hgb < 7
# Chronic pain with narcotic dependence
# Chronic back pain
Patient states that he does not take OxyContin anymore only oxycodone, therefore stopped OxyContin
Oxycodone 5 mg every 4 hours as needed for pain
Dilaudid for severe pain
Cont PRINT INSPECTOR gabapentin 300 mg HS and add 100 mg daily
# Coronary disease with history of CABG, complicated by sternal debridement and pectoral flap
Continue Plavix, statin and beta-juan
valsartan on hold with TRISTAN
# Chronic heart failure with preserved ejection fraction
Continue Jardiance and beta-juan
Hold Lasix, valsartan due to TRISTAN
# Persistent atrial fibrillation
# History of cardioversion and ablation in the past
continue beta-juan
restart Eliquis (cleared by vascular)
# Pacemaker 2020
# Bioprosthetic aortic and mitral valve replacements
# Constipation has resolved
# COPD- not in exacerbation
Continue budesonide/formoterol
# Chronic anemia
Iron studies and B12 sufficient
# Hyperlipidemia-continue Lipitor
# Gout-continue allopurinol
# Prostate disease-continue Flomax
# Insomnia-continue trazodone
# History of vertigo
# History of cervical discectomy for herniated disc
# Psoriasis
# Ex-smoker
DVT prophylaxis-restart Eliquis (cleared by vascular). DC Lovenox subcu.
Anticipated Discharge: > 48 hours
Subjective/Interval History
-
Date of Service: September 12, 2023
Objective Data
-
Labs:
Laboratory Results
09/12/23
04:49
WBC 6.6
Hgb 8.3 L
Hct 24.2 L
Plt Count 141 D
Sodium 135
Potassium 4.8
Chloride 104
Carbon Dioxide 25
BUN 35 H
Creatinine 1.0
Glucose 99
Calcium 8.6
Vital Signs:
Vital Signs
Temp Pulse Resp BP Pulse Ox
36.5 C 83 16 126/59 99
09/12/23 07:46 09/12/23 08:28 09/12/23 08:28 09/12/23 07:46 09/12/23 08:55
I&O
09/11/23 09/12/23 09/13/23
06:59 06:59 06:59
Intake Total 820 / 820 1560 / 1560
Output Total 850 / 850 1725 / 1725
Balance -30 / -30 -165 / -165
Review of Systems
-
All other systems: Reviewed and negative
Physical Exam
-
General: Well Developed, No Apparent Distress, Comfortable and Conversant
HEENT: Normocephalic, Atraumatic and Moist Mucous Membranes
Respiratory: Clear to Auscultation and Non Labored Respirations; Negative Accessory Resp Muscle Use
Cardiac: S1/S2 and Irregular Rhythm
GI: Soft, Nontender, Nondistended and Normal Bowel Sounds
Rectal: Deferred by Provider
Musculoskeletal: No Clubbing and No Cyanosis
Skin: Warm
Neuro: Awake
Psych: Calm and Intact Judgement/Insight
Data Reviewed
-
Labs: Labs Reviewed by me
--- NOTE | 2023-09-12 11:02 | W.PN.ID1 ---
Date of Service
Date of Service: September 12, 2023
Today's Communication
set up OPAT
continue meropenem
Assessment / Plan
Osteomyelitis of the L Heel
PAD/CAD
- 09/07 s/p LLE angiogram, left heel ulcer debridement. OR bone Cx: E coli
- 09/06 wound culture E. coli, Pseudomonas x 2 strains, anaerobe
- switch meropenem to 1 gm IV q8 hrs
- PICC line - script on paper chart
- appreciate vascular surgery - note plans for possible vac
- follow up in about 6 weeks
Chief Complaint
-: Other (probable osteomyelitis)
Subjective / Review of Systems
afebrile
bp stable
cr now 1.0
tolerating current therapies
Vital Signs / Physical Exam
Vital Signs
Vital Signs
Temp Pulse Resp BP Pulse Ox
97.7 F 83 16 126/59 99
09/12/23 07:46 09/12/23 08:28 09/12/23 08:28 09/12/23 07:46 09/12/23 08:55
Physical Exam
Constitutional: No Acute Distress
Cardiovascular: Regular Rate and S1/S2; Negative Murmur or Rub
Pulmonary: Clear and Symmetric; Negative Wheezes or Rales
Gastrointestinal: Soft, Non Tender, Non Distended and Normal Bowel Sounds
Extremities: Other (dressing clean, dry, intact)
Skin: Warm and Dry; Negative Rash or Jaundice
Objective Data
Lab Data
Lab Results
09/12/23 04:49
09/12/23 04:49
Estimated Creat Clear 63 ml/min 09/12/23 04:49
Total Bilirubin 0.6 mg/dl (0.2-1.3) 09/05/23 17:04
AST 37 U/L (17-59) 09/05/23 17:04
ALT 19 U/L (0-50) 09/05/23 17:04
Alkaline Phosphatase 101 U/L (38-126) 09/05/23 17:04
Most recent labs reviewed.
Micro Results:
09/06/23 14:23 Blood Culture - Final
Blood/Venous No Growth - Final Report
09/05/23 17:04 Blood Culture - Final
Blood/Venous No Growth - Final Report
09/08/23 16:30 Tissue Culture - Final
Heel - Left Escherichia coli
Gram Stain - Final
09/06/23 15:15 Wound Culture - Final
Heel - Left Escherichia coli
Pseudomonas aeruginosa
Pseudomonas aeruginosa#2
Gram Stain - Final
[2023-09-12] MEDS: MERREM 1000 MG IV ×2 (11:40→20:14)
[2023-09-12] MEDS: STERILE WATER FOR INJECTION 20 ML IV ×2 (11:40→20:15)
[2023-09-12 15:00] VITALS: BP 119/60
--- NOTE | 2023-09-12 15:35 | WOUNDNOTE ---
LUZ YATES NOTE: Confirmed with nurse Yasmeen that patient's wound on heel is still bleeding, will hold off on wound vac application today.
[2023-09-12 16:30] VITALS: BP 120/83; PULSE 99; O2SAT 99
[2023-09-12] MEDS: NEURONTIN 300 MG PO (17:33)
[2023-09-12] MEDS: TOPROL XL 50 MG PO (17:33)
[2023-09-12] MEDS: ZYRTEC 10 MG PO (17:34)
[2023-09-12] MEDS: JARDIANCE 10 MG PO (17:34)
[2023-09-12] MEDS: ROXICODONE 5 MG PO (20:13)
[2023-09-12] MEDS: COLACE 100 MG PO (20:13)
[2023-09-12] MEDS: SENOKOT 17.1999999999999993 MG PO (20:14)
[2023-09-12] MEDS: ELIQUIS 5 MG PO (20:14)
[2023-09-12 22:52] VITALS: BP 128/67
[2023-09-13] MEDS: ROXICODONE 5 MG PO ×4 (00:13→20:42)
[2023-09-13] MEDS: DILAUDID 0.25 MG IV ×2 (03:20→09:35)
[2023-09-13] MEDS: MERREM 1000 MG IV ×2 (03:30→11:57)
[2023-09-13] MEDS: STERILE WATER FOR INJECTION 20 ML IV ×3 (03:30→17:40)
[2023-09-13 05:11] LABS: Hematocrit 24.6 % (39.0-52.0); Hemoglobin 8.3 g/dL (13.0-18.0); Mean Corp Hgb Conc. 33.7 g/dL (33.0-37.0); Mean Corpuscular Hgb 34.2 pg (27.0-31.0); Mean Corpuscular Volume 101.2 fL (80.0-94.0); Mean Platelet Volume 9.8 fL (7.4-10.4); Platelet Count 142 10^3/uL (130-400); Red Blood Cell Count 2.43 10^6/uL (4.70-6.10); White Blood Cell Count 6.6 10^3/uL (4.8-10.8)
[2023-09-13 05:39] LABS: Blood Urea Nitrogen 26 mg/dl (9-20); Calcium 8.6 mg/dl (8.4-10.2); Carbon Dioxide 23 mmol/L (22-30); Chloride 105 mmol/L (98-107); Estimated Creatinine Clearance 63 ml/min; Glucose 88 mg/dl (70-99); Magnesium 2.5 mg/dl (1.6-2.3); Potassium 4.4 mmol/L (3.5-5.1); Sodium 132 mmol/L (135-145); eGFR > 60.00
[2023-09-13 07:30] VITALS: BP 149/77
[2023-09-13] MEDS: SYMBICORT 160/4.5 MCG INHALER 2 PUFF INH ×2 (07:53→20:49)
[2023-09-13] MEDS: MIRALAX 17 GRAMS PO (08:28)
[2023-09-13] MEDS: PLAVIX 75 MG PO (08:29)
[2023-09-13] MEDS: VITAMIN D3 (cholecalciferol) 25 MCG PO (08:29)
[2023-09-13] MEDS: ZYLOPRIM 100 MG PO (08:29)
[2023-09-13] MEDS: LIPITOR 10 MG PO (08:29)
[2023-09-13] MEDS: VITAMIN B-12 1000 MCG PO (08:29)
[2023-09-13] MEDS: FLOMAX 0.400000000000000022 MG PO (08:29)
[2023-09-13] MEDS: NEURONTIN 100 MG PO (08:29)
[2023-09-13] MEDS: ELIQUIS 5 MG PO (08:29)
[2023-09-13] MEDS: COLACE 100 MG PO ×2 (08:29→20:44)
[2023-09-13] MEDS: SINGULAIR 10 MG PO (08:29)
[2023-09-13] MEDS: SENOKOT 17.1999999999999993 MG PO ×2 (08:29→20:45)
--- NOTE | 2023-09-13 09:33 | W.PN.VS ---
Addendum entered and electronically signed by Khadar Sullivan MD 09/13/23 11:08:
Seen and examined with NIK Wilks. Agree with findings as noted below. Wound dressing changed. Wound clean. Plan/as discussed and noted below.
Original Note:
Today's Communication / Plan
-
Seen and assessed with Dr. Sullivan
Assessment/Plan
-
POD 4 diagnostic angiogram and heel debridement
Plan:
-Wound VAC applied
-Next VAC change Monday
-Wound care and case management for Home VAC
-Okay for discharge from vascular standpoint
Subjective Data
-
Date of Service: September 13, 2023
Patient seen at bedside this a.m. with Dr. Sullivan. No events overnight. Heel dressing dry and intact
Objective Data
-
Vital Signs
Temp Pulse Resp BP Pulse Ox
97.4 F 82 16 149/77 96
09/13/23 07:30 09/13/23 08:04 09/13/23 08:04 09/13/23 07:30 09/13/23 08:04
Intake and Output
09/12/23 09/13/23 09/14/23
06:59 06:59 06:59
Intake Total 1560 / 1560 640 / 640
Output Total 1724 / 1721979
Balance -165 / -165 -1340 / -1340
Intake:
Oral fluids 840 / 840 640 / 640
IV fluids (Total) 720 / 720
Output:
Urine, Voided 1724 / 1724
Lab Results
09/13/23 04:29
09/13/23 04:29
Calcium 8.6 mg/dl (8.4-10.2) 09/13/23 04:29
Magnesium 2.5 mg/dl (1.6-2.3) H 09/13/23 04:29
Total Bilirubin 0.6 mg/dl (0.2-1.3) 09/05/23 17:04
AST 37 U/L (17-59) 09/05/23 17:04
ALT 19 U/L (0-50) 09/05/23 17:04
Alkaline Phosphatase 101 U/L (38-126) 09/05/23 17:04
Total Protein 7.0 g/dl (6.3-8.2) 09/05/23 17:04
Albumin 3.6 g/dl (3.5-5.0) 09/05/23 17:04
Physical Exam
-
AAOx3
No tachypnea on RA
Abd soft
Heel undressed, minimal blood ooz from from skin edge of wound bed.
Wound VAC applied (4X4.5X2)
foot warm, pink
--- NOTE | 2023-09-13 10:38 | W.PN.HOSP.TC ---
Today's Communication/Plan
-
see A/P
Assessment / Plan
Assessment / Plan
77-year-old male with left heel ulcer. Visiting nurse recommended admission.
JASON 08/18/2023
Right lower extremity 0.62 consistent with moderate arterial insufficiency improved from prior study 0.50. TBI severely reduced 0.26 stable.
Left lower extremity JASON not performed secondary to lower extremity bypass. TBI moderate to severely reduced 0.37. No stenosis of common femoral through popliteal artery below popliteal more than 75% stenosis?
MRI-enhancement of the posterior inferior aspect of the calcaneus consistent with osteomyelitis in the area of the nonhealing ulcer. No abscess.
A/P:
# Infected left heel wound- unstageable to stage IV
# Osteomyelitis of the Left calcaneus per MRI and confirmed on pathology
Patient has been followed by [facility] wound care and debrided weekly.
Status post arteriogram 09/08/2023- no vascular interventions needed
Status post L heel debridement of the wound
OR cultures with E. coli
Superficial wound cultures with Pseudomonas and E. coli
Pathology confirmed acute osteomyelitis.
Cont Merrem per ID , tentatively [address]
for Wound VAC placement 09/12 by vascular , will reattempt due to bleeding
# Peripheral artery disease, clinically limb-threatening ischemia with nonhealing left heel wound
# History of left popliteal to dorsalis pedis bypass complicated with left inguinal infection/sepsis 05/29/2023
# History of right common iliac and right popliteal stents
Arteriogram 09/08/23- no interventions
# Acute kidney injury, resolved
likely IV dye related from arteriogram
Cont Bladder scan
resume LINE INSTALLER Valsartan
Cont to hold Lasix, can consider resuming upon discharge
s/p gentle IVF
# Acute anemia, related to OR debridement vs dilutional from IVF
Cont to trend Hgb and transfuse 1 units for Hgb < 7
# Chronic pain with narcotic dependence
# Chronic back pain
Patient states that he does not take OxyContin anymore only oxycodone, therefore stopped OxyContin
Oxycodone 5 mg every 4 hours as needed for pain
Dilaudid for severe pain
Cont LINE INSTALLER gabapentin 300 mg HS and added 100 mg daily
# Coronary disease with history of CABG, complicated by sternal debridement and pectoral flap
Continue Plavix, statin and beta-juan
resumed valsartan
# Chronic heart failure with preserved ejection fraction
Continue Jardiance and beta-juan
resumed valsartan
Cont to hold Lasix, can consider resuming upon discharge
# Persistent atrial fibrillation
# History of cardioversion and ablation in the past
continue beta-juan
restarted Eliquis 09/11 (cleared by vascular)
# Pacemaker 2020
# Bioprosthetic aortic and mitral valve replacements
# Constipation has resolved
# COPD- not in exacerbation
Continue budesonide/formoterol
# Chronic anemia
Iron studies and B12 sufficient
# Hyperlipidemia-continue Lipitor
# Gout-continue allopurinol
# Prostate disease-continue Flomax
# Insomnia-continue trazodone
# History of vertigo
# History of cervical discectomy for herniated disc
# Psoriasis
# Ex-smoker
DVT prophylaxis-restarted Eliquis (cleared by vascular). DC Lovenox subcu.
Anticipated Discharge: 24 - 48 hours
Subjective/Interval History
-
Date of Service: September 13, 2023
Objective Data
-
Labs:
Laboratory Results
09/13/23
04:29
WBC 6.6
Hgb 8.3 L
Hct 24.6 L
Plt Count 142
Sodium 132 L
Potassium 4.4
Chloride 105
Carbon Dioxide 23
BUN 26 H
Creatinine 1.0
Glucose 88
Calcium 8.6
Vital Signs:
Vital Signs
Temp Pulse Resp BP Pulse Ox
36.3 C 82 16 149/77 96
09/13/23 07:30 09/13/23 08:04 09/13/23 08:04 09/13/23 07:30 09/13/23 08:04
I&O
09/12/23 09/13/23 09/14/23
06:59 06:59 06:59
Intake Total 1560 / 1560 640 / 640
Output Total 1725 / 1725 1979 / 1979
Balance -165 / -165 -1340 / -1340
Review of Systems
-
All other systems: Reviewed and negative
Physical Exam
-
General: Well Developed, No Apparent Distress, Comfortable and Conversant
HEENT: Normocephalic, Atraumatic and Moist Mucous Membranes
Respiratory: Clear to Auscultation and Non Labored Respirations; Negative Accessory Resp Muscle Use
Cardiac: S1/S2 and Irregular Rhythm
GI: Soft, Nontender, Nondistended and Normal Bowel Sounds
Rectal: Deferred by Provider
Musculoskeletal: No Clubbing and No Cyanosis
Skin: Warm
Neuro: Awake
Psych: Calm and Intact Judgement/Insight
Data Reviewed
-
Labs: Labs Reviewed by me
[2023-09-13] MEDS: FLUSH (NSS) 2 FLUSH IV (11:58)
[2023-09-13 12:00] VITALS: BMI 22.2
--- NOTE | 2023-09-13 12:10 | W.PN.ID1 ---
Date of Service
Date of Service: September 13, 2023
Today's Communication
switch to ceftriaxone 2 gm iv q24 hrs - updated script to outpatient case manager
stable for dc from ID perspective
Assessment / Plan
Osteomyelitis of the L Heel
PAD/CAD
- 09/07 s/p LLE angiogram, left heel ulcer debridement. OR bone Cx: E coli
- OR culture few E coli
- switch to ceftriaxone 2 gm IV q24 hrs
- PICC line - script on paper chart
- appreciate vascular surgery - note plans for possible vac
- follow up in about 6 weeks; stable for dc from ID perspective
Chief Complaint
-: Other (probable osteomyelitis)
Subjective / Review of Systems
afebrile
bp stable
no leukocytosis
cr stable
was confused after the OR 09/07 - was placed on med sitter
able to follow inverted two step command
Vital Signs / Physical Exam
Vital Signs
Vital Signs
Temp Pulse Resp BP Pulse Ox
97.4 F 82 16 149/77 96
09/13/23 07:30 09/13/23 08:04 09/13/23 08:04 09/13/23 07:30 09/13/23 08:04
Physical Exam
Constitutional: No Acute Distress
Cardiovascular: Regular Rate and S1/S2; Negative Murmur or Rub
Pulmonary: Clear and Symmetric; Negative Wheezes or Rales
Gastrointestinal: Soft, Non Tender, Non Distended and Normal Bowel Sounds
Skin: Warm and Dry; Negative Rash or Jaundice
Wound: Other (wound vac off, dressing clean, dry, intact)
Objective Data
Lab Data
Lab Results
09/13/23 04:29
09/13/23 04:29
Estimated Creat Clear 63 ml/min 09/13/23 04:29
Total Bilirubin 0.6 mg/dl (0.2-1.3) 09/05/23 17:04
AST 37 U/L (17-59) 09/05/23 17:04
ALT 19 U/L (0-50) 09/05/23 17:04
Alkaline Phosphatase 101 U/L (38-126) 09/05/23 17:04
Most recent labs reviewed.
Micro Results:
09/06/23 14:23 Blood Culture - Final
Blood/Venous No Growth - Final Report
09/05/23 17:04 Blood Culture - Final
Blood/Venous No Growth - Final Report
09/08/23 16:30 Tissue Culture - Final
Heel - Left Escherichia coli
Gram Stain - Final
09/06/23 15:15 Wound Culture - Final
Heel - Left Escherichia coli
Pseudomonas aeruginosa
Pseudomonas aeruginosa#2
Gram Stain - Final
--- NOTE | 2023-09-13 12:53 | CM ---
Addendum entered by JOHNATHAN Mosqueda 09/13/23 13:46:
Faxed referrals to: [facility], [facility], [facility], [facility], [facility], [facility], and [facility]. Will await responses.
Original Note:
Met with patient and his who was at bedside to discuss discharge planning. Patient's was hesitant for patient to go back to SNF as she attributed patient's wounds to being at CT. Ultimately, patient's determined for safety it would be
best for patient to transfer to an NH for SNF. Patient agreed. Will make referrals to local facilities and facilities local to [place] where they reside.
Plan: Case management will continue to follow and assist with discharge planning. SNF when stable.
--- NOTE | 2023-09-13 13:15 | WOUNDNOTE ---
WOC RN note: Confirmed with Electrician Jazz Langston that it is undecided whether patient is going home vs SNF at this point. TRUDY Lyn reported earlier that vascular applied and then removed heel wound vac d/t bleeding.
[2023-09-13 15:30] VITALS: BP 120/63
[2023-09-13] MEDS: LOVENOX 40 MG SC (17:35)
[2023-09-13] MEDS: TOPROL XL 50 MG PO (17:36)
[2023-09-13] MEDS: ZYRTEC 10 MG PO (17:36)
[2023-09-13] MEDS: JARDIANCE 10 MG PO (17:40)
[2023-09-13] MEDS: NEURONTIN 300 MG PO (17:40)
[2023-09-13] MEDS: ROCEPHIN 2000 MG IV (17:40)
[2023-09-13 23:00] VITALS: BP 141/69
[2023-09-14 04:07] LABS: Hematocrit 23.6 % (39.0-52.0); Hemoglobin 8.1 g/dL (13.0-18.0); Mean Corp Hgb Conc. 34.3 g/dL (33.0-37.0); Mean Corpuscular Volume 99.2 fL (80.0-94.0); Mean Platelet Volume 9.8 fL (7.4-10.4); Platelet Count 150 10^3/uL (130-400); Red Blood Cell Count 2.38 10^6/uL (4.70-6.10); Red Cell Dist. Width 14.9 % (11.5-14.5); White Blood Cell Count 6.2 10^3/uL (4.8-10.8)
[2023-09-14 04:47] LABS: Blood Urea Nitrogen 28 mg/dl (9-20); Calcium 8.7 mg/dl (8.4-10.2); Carbon Dioxide 20 mmol/L (22-30); Chloride 105 mmol/L (98-107); Estimated Creatinine Clearance 71 ml/min; Glucose 101 mg/dl (70-99); Magnesium 2.4 mg/dl (1.6-2.3); Potassium 4.3 mmol/L (3.5-5.1); Sodium 131 mmol/L (135-145); eGFR > 60.00
[2023-09-14 07:30] VITALS: BP 126/71
--- NOTE | 2023-09-14 07:49 | W.PN.VS ---
Addendum entered and electronically signed by Khadar Sullivan MD 09/14/23 13:19:
This is a late entry. Seen and examined with NIK Wilks earlier this a.m. Agree with findings as noted below. Dressing changed with team. Wound clean. Plan/as discussed and noted below.
Original Note:
Today's Communication / Plan
-
Seen and assessed with Dr Sullivan
Assessment/Plan
-
POD 5 diagnostic angiogram and heel debridement
Plan:
-Wound VAC applied
-Next VAC change Monday
-Wound care and case management for Home VAC
-HOLD Eliquis until 12pm to make sure no bleeding in VAC
-IF no change by 12pm can initiate Eliquis and watch for bleeding this afternoon
Subjective Data
-
Date of Service: September 14, 2023
Pt seen at bedside this am with Dr Sullivan. Pt offers no complaints at this time. Heel dressing intact
Objective Data
-
Vital Signs
Temp Pulse Resp BP Pulse Ox
97.5 F 75 19 141/69 97
09/13/23 23:00 09/13/23 23:00 09/13/23 23:00 09/13/23 23:00 09/13/23 23:00
Intake and Output
09/13/23 09/14/23 09/15/23
06:59 06:59 06:59
Intake Total 640 / 640 980 / 980
Output Total 1979
Balance -1340 / -1340 -730 / -730
Intake:
Oral fluids 640 / 640 980 / 980
Output:
Urine, Voided 1979
Lab Results
09/14/23 03:55
09/14/23 03:55
Calcium 8.7 mg/dl (8.4-10.2) 09/14/23 03:55
Magnesium 2.4 mg/dl (1.6-2.3) H 09/14/23 03:55
Total Bilirubin 0.6 mg/dl (0.2-1.3) 09/05/23 17:04
AST 37 U/L (17-59) 09/05/23 17:04
ALT 19 U/L (0-50) 09/05/23 17:04
Alkaline Phosphatase 101 U/L (38-126) 09/05/23 17:04
Total Protein 7.0 g/dl (6.3-8.2) 09/05/23 17:04
Albumin 3.6 g/dl (3.5-5.0) 09/05/23 17:04
Physical Exam
-
AAOx3
No tachypnea on RA
Abd soft
Heel undressed, minimal blood ooz from from skin edge of wound bed, Dr Sullivan applied silver nitrate
Wound VAC applied (4X4.5X2), BYRON wrapped
foot warm, pink
[2023-09-14] MEDS: MIRALAX 17 GRAMS PO (08:07)
[2023-09-14] MEDS: FLOMAX 0.400000000000000022 MG PO (08:08)
[2023-09-14] MEDS: ROXICODONE 5 MG PO ×3 (08:08→17:39)
[2023-09-14] MEDS: NEURONTIN 100 MG PO (08:09)
[2023-09-14] MEDS: VITAMIN D3 (cholecalciferol) 25 MCG PO (08:09)
[2023-09-14] MEDS: ZYLOPRIM 100 MG PO (08:09)
[2023-09-14] MEDS: PLAVIX 75 MG PO (08:09)
[2023-09-14] MEDS: SENOKOT 17.1999999999999993 MG PO ×2 (08:10→20:22)
[2023-09-14] MEDS: DIOVAN 20 MG PO (08:10)
[2023-09-14] MEDS: VITAMIN B-12 1000 MCG PO (08:10)
[2023-09-14] MEDS: COLACE 100 MG PO ×2 (08:11→20:22)
[2023-09-14] MEDS: LIPITOR 10 MG PO (08:11)
[2023-09-14] MEDS: SINGULAIR 10 MG PO (08:11)
[2023-09-14] MEDS: SYMBICORT 160/4.5 MCG INHALER 2 PUFF INH ×2 (08:24→19:29)
--- NOTE | 2023-09-14 08:25 | WOUNDNOTE ---
[facility] RN Note: L heel wound vac applied by Ro Wilks, Vascular PA this morning. She stated she cauterized wound yesterday and applied silver nitrate today. Confirmed with Ro next vac dressing change is Monday if still in hospital however,
she is hopeful of discharge sooner.
[2023-09-14] MEDS: DILAUDID 0.25 MG IV (09:10)
[2023-09-14] MEDS: DILAUDID 1 MG IV (10:26)
--- NOTE | 2023-09-14 10:50 | W.PN.HOSP.TC ---
Today's Communication/Plan
-
see A/P
Assessment / Plan
Assessment / Plan
77-year-old male with left heel ulcer. Visiting nurse recommended admission.
JASON 08/18/2023
Right lower extremity 0.62 consistent with moderate arterial insufficiency improved from prior study 0.50. TBI severely reduced 0.26 stable.
Left lower extremity JASON not performed secondary to lower extremity bypass. TBI moderate to severely reduced 0.37. No stenosis of common femoral through popliteal artery below popliteal more than 75% stenosis?
MRI-enhancement of the posterior inferior aspect of the calcaneus consistent with osteomyelitis in the area of the nonhealing ulcer. No abscess.
A/P:
# Infected left heel wound- unstageable to stage IV
# Osteomyelitis of the Left calcaneus per MRI and confirmed on pathology
Patient has been followed by [facility] wound care and debrided weekly.
Status post arteriogram 09/08/2023- no vascular interventions needed
Status post L heel debridement of the wound
OR cultures with E. coli
Superficial wound cultures with Pseudomonas and E. coli
Pathology confirmed acute osteomyelitis.
IV Merrem -> ceftriaxone 2 gm iv q24 hrs per ID , tentatively [address]
s/p Wound VAC placement 09/13 by vascular, pt c/o severe pain, pain control with IV Dilaudid
# Peripheral artery disease, clinically limb-threatening ischemia with nonhealing left heel wound
# History of left popliteal to dorsalis pedis bypass complicated with left inguinal infection/sepsis 05/29/2023
# History of right common iliac and right popliteal stents
Arteriogram 09/08/23- no interventions
# Acute kidney injury, resolved
likely IV dye related from arteriogram
Cont Bladder scan
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
Cont to hold Lasix, can consider resuming upon discharge
s/p gentle IVF
# Acute anemia, related to OR debridement vs dilutional from IVF
Cont to trend Hgb and transfuse 1 units for Hgb < 7
# Chronic pain with narcotic dependence
# Chronic back pain
Patient states that he does not take OxyContin anymore only oxycodone, therefore stopped OxyContin
Oxycodone 5 mg every 4 hours as needed for pain
Dilaudid for severe pain
Cont PASTE UP WORKER gabapentin 300 mg HS and added 100 mg daily
# Coronary disease with history of CABG, complicated by sternal debridement and pectoral flap
Continue Plavix, statin and beta-juan
resumed valsartan
# Chronic heart failure with preserved ejection fraction
Continue Jardiance and beta-juan
resumed valsartan
Cont to hold Lasix, can consider resuming upon discharge
# Persistent atrial fibrillation
# History of cardioversion and ablation in the past
continue beta-juan
Eliquis held again 09/12 due to bleeding when wound vac was placed, resume when cleared by vascular
# Pacemaker 2020
# Bioprosthetic aortic and mitral valve replacements
# Constipation has resolved
# COPD- not in exacerbation
Continue budesonide/formoterol
# Chronic anemia
Iron studies and B12 sufficient
# Hyperlipidemia-continue Lipitor
# Gout-continue allopurinol
# Prostate disease-continue Flomax
# Insomnia-continue trazodone
# History of vertigo
# History of cervical discectomy for herniated disc
# Psoriasis
# Ex-smoker
DVT prophylaxis- Eliquis held again 09/12 due to bleeding when wound vac was placed, resume when cleared by vascular. Cont Lovenox subcu.
DW family at bedside
Anticipated Discharge: 24 - 48 hours
Subjective/Interval History
-
Date of Service: September 14, 2023
Objective Data
-
Labs:
Laboratory Results
09/14/23
03:55
WBC 6.2
Hgb 8.1 L
Hct 23.6 L
Plt Count 150
Sodium 131 L
Potassium 4.3
Chloride 105
Carbon Dioxide 20 L
BUN 28 H
Creatinine 0.9
Glucose 101 H
Calcium 8.7
Vital Signs:
Vital Signs
Temp Pulse Resp BP Pulse Ox
36.2 C 96 18 126/71 98
09/14/23 07:30 09/14/23 08:30 09/14/23 08:30 09/14/23 07:30 09/14/23 08:30
I&O
09/13/23 09/14/23 09/15/23
06:59 06:59 06:59
Intake Total 640 / 640 980 / 980
Output Total 1979 / 1979 1710 / 1710
Balance -1340 / -1340 -730 / -730
Review of Systems
-
All other systems: Reviewed and negative
Physical Exam
-
General: Well Developed, No Apparent Distress, Comfortable, Conversant and Appears Chronically Ill
HEENT: Normocephalic, Atraumatic and Moist Mucous Membranes
Respiratory: Clear to Auscultation and Non Labored Respirations; Negative Accessory Resp Muscle Use
Cardiac: S1/S2 and Irregular Rhythm
GI: Soft, Nontender, Nondistended and Normal Bowel Sounds
Rectal: Deferred by Provider
Musculoskeletal: No Clubbing and No Cyanosis
Skin: Warm
Neuro: Awake
Psych: Calm and Intact Judgement/Insight
Data Reviewed
-
Labs: Labs Reviewed by me
[2023-09-14 11:00] VITALS: BMI 21.7
--- NOTE | 2023-09-14 12:26 | CM ---
Addendum entered by JOHNATHAN Mosqueda 09/14/23 14:07:
Met with patient and his who was at bedside. They were updated about acceptance at [facility], [facility] and [facility] and advised that admissions already confirmed acceptance at . Patient's stated that she will review
the facility and make a determination regarding where she wants spouse to go.
Original Note:
Placed a call to and spoke with Jean Pierre in admissions who confirmed acceptance. Will update patient and his .
#For report will be [phone] and fax# [phone].
Plan: Case management will continue to follow and assist with discharge planning. SNF when stable.
--- NOTE | 2023-09-14 13:30 | W.PN.UPDATE ---
Update Note
Progress Note Update
Wound VAC failed for blockage/blood in tubing. VAC removed. Applied hemostatic agent and rewrapped. Will reassess for hemostasis tomorrow and attempt VAC placement again if dry. Would prefer to continue to hold eliquis for now. d/w Dr Reynolds and
Hospitalist.
--- NOTE | 2023-09-14 15:23 | W.PN.ID1 ---
Date of Service
Date of Service: September 14, 2023
Today's Communication
- c/w ceftriaxone 2 gm IV q24 hrs
- PICC line - script on paper chart
- follow up in clinic in about 6 weeks
Assessment / Plan
Osteomyelitis of the L Heel
PAD/CAD
- c/w ceftriaxone 2 gm IV q24 hrs
- PICC line - script on paper chart
- follow up in clinic in about 6 weeks
Chief Complaint
-: Other (probable osteomyelitis)
Subjective / Review of Systems
afebrile
bp stable
without leukocytosis
cr stable
wound vac in place
Vital Signs / Physical Exam
Vital Signs
Vital Signs
Temp Pulse Resp BP Pulse Ox
97.2 F 96 18 126/71 98
09/14/23 07:30 09/14/23 08:30 09/14/23 08:30 09/14/23 07:30 09/14/23 08:30
Physical Exam
Constitutional: No Acute Distress
Cardiovascular: Regular Rate and S1/S2; Negative Murmur or Rub
Pulmonary: Clear and Symmetric; Negative Wheezes or Rales
Gastrointestinal: Soft, Non Tender, Non Distended and Normal Bowel Sounds
Skin: Warm and Dry; Negative Rash or Jaundice
Objective Data
Lab Data
Lab Results
09/14/23 03:55
09/14/23 03:55
Estimated Creat Clear 71 ml/min 09/14/23 03:55
Total Bilirubin 0.6 mg/dl (0.2-1.3) 09/05/23 17:04
AST 37 U/L (17-59) 09/05/23 17:04
ALT 19 U/L (0-50) 09/05/23 17:04
Alkaline Phosphatase 101 U/L (38-126) 09/05/23 17:04
Most recent labs reviewed.
Micro Results:
09/06/23 14:23 Blood Culture - Final
Blood/Venous No Growth - Final Report
09/05/23 17:04 Blood Culture - Final
Blood/Venous No Growth - Final Report
09/08/23 16:30 Tissue Culture - Final
Heel - Left Escherichia coli
Gram Stain - Final
09/06/23 15:15 Wound Culture - Final
Heel - Left Escherichia coli
Pseudomonas aeruginosa
Pseudomonas aeruginosa#2
Gram Stain - Final
[2023-09-14 15:45] VITALS: BP 105/48; BP 84/40; PULSE 99; O2SAT 99
[2023-09-14 16:01] VITALS: BP 87/53
[2023-09-14] MEDS: ROCEPHIN 2000 MG IV (17:25)
[2023-09-14] MEDS: LOVENOX 40 MG SC (17:26)
[2023-09-14] MEDS: STERILE WATER FOR INJECTION 20 ML IV (17:26)
[2023-09-14] MEDS: ZYRTEC 10 MG PO (17:28)
[2023-09-14] MEDS: TOPROL XL 50 MG PO (17:28)
[2023-09-14] MEDS: NEURONTIN 300 MG PO (17:28)
[2023-09-14] MEDS: JARDIANCE 10 MG PO (17:28)
[2023-09-14 23:35] VITALS: BP 120/58
[2023-09-15] MEDS: ROXICODONE 5 MG PO ×3 (02:11→17:30)
[2023-09-15 06:00] VITALS: BMI 21.5
[2023-09-15 06:06] LABS: Hematocrit 21.8 % (39.0-52.0); Hemoglobin 7.6 g/dL (13.0-18.0); Mean Corp Hgb Conc. 34.9 g/dL (33.0-37.0); Mean Corpuscular Hgb 34.5 pg (27.0-31.0); Mean Corpuscular Volume 99.1 fL (80.0-94.0); Mean Platelet Volume 10.1 fL (7.4-10.4); Platelet Count 143 10^3/uL (130-400); Red Cell Dist. Width 15.2 % (11.5-14.5); White Blood Cell Count 6.3 10^3/uL (4.8-10.8)
[2023-09-15 06:40] LABS: Blood Urea Nitrogen 34 mg/dl (9-20); Calcium 8.9 mg/dl (8.4-10.2); Carbon Dioxide 21 mmol/L (22-30); Chloride 102 mmol/L (98-107); Estimated Creatinine Clearance 63 ml/min; Glucose 95 mg/dl (70-99); Potassium 4.5 mmol/L (3.5-5.1); Sodium 132 mmol/L (135-145); eGFR > 60.00
[2023-09-15 08:03] VITALS: BP 115/62
[2023-09-15] MEDS: MIRALAX 17 GRAMS PO (08:03)
[2023-09-15] MEDS: DIOVAN 20 MG PO (08:05)
[2023-09-15] MEDS: COLACE 100 MG PO ×2 (08:06→19:28)
[2023-09-15] MEDS: VITAMIN D3 (cholecalciferol) 25 MCG PO (08:06)
[2023-09-15] MEDS: SENOKOT 17.1999999999999993 MG PO ×2 (08:07→19:28)
[2023-09-15] MEDS: FLOMAX 0.400000000000000022 MG PO (08:07)
[2023-09-15] MEDS: ZYLOPRIM 100 MG PO (08:07)
[2023-09-15] MEDS: LIPITOR 10 MG PO (08:07)
[2023-09-15] MEDS: NEURONTIN 100 MG PO (08:07)
[2023-09-15] MEDS: PLAVIX 75 MG PO (08:07)
[2023-09-15] MEDS: VITAMIN B-12 1000 MCG PO (08:07)
[2023-09-15] MEDS: SINGULAIR 10 MG PO (08:08)
[2023-09-15] MEDS: SYMBICORT 160/4.5 MCG INHALER 2 PUFF INH ×2 (08:09→19:38)
--- NOTE | 2023-09-15 09:47 | W.PN.VS ---
Addendum entered and electronically signed by Santosh Reynolds III, MD 09/15/23 10:52:
This patient was seen and examined with RENEE Edwards. I agree with the history and physical exam as well as the assessment and plan.
Signed:
Santosh Reynolds III, MD
[facility] Vascular Surgery
[phone] ([phone])
Original Note:
Today's Communication / Plan
-
Patient seen and examined at bedside with Dr. Santosh Reynolds III, below plan reviewed with attending.
Assessment/Plan
-
POD 6 diagnostic angiogram and heel debridement
Plan:
-Can resume Eliquis
-Will plan to place VAC tomorrow if heel remains dry without evidence of bleeding
-Will provide 1 unit PRBC
Subjective Data
-
Date of Service: September 15, 2023
Patient seen and examined at bedside, offers no complaints. Patient denies, nausea, vomiting, fever, and chills.
Objective Data
-
Vital Signs
Temp Pulse Resp BP Pulse Ox
97.9 F 92 14 115/62 99
09/15/23 08:03 09/15/23 08:14 09/15/23 08:14 09/15/23 08:03 09/15/23 08:14
Intake and Output
09/14/23 09/15/23 09/16/23
06:59 06:59 06:59
Intake Total 980 / 980 420 / 420 510 / 510
Output Total 1710 / 1710 450 / 450
Balance -730 / -730 -30 / -30 510 / 510
Intake:
Oral fluids 980 / 980 420 / 420 510 / 510
Output:
Urine, Voided 1710 / 1710 450 / 450
Lab Results
09/15/23 05:27
09/15/23 05:27
Calcium 8.9 mg/dl (8.4-10.2) 09/15/23 05:27
Magnesium 2.4 mg/dl (1.6-2.3) H 09/14/23 03:55
Total Bilirubin 0.6 mg/dl (0.2-1.3) 09/05/23 17:04
AST 37 U/L (17-59) 09/05/23 17:04
ALT 19 U/L (0-50) 09/05/23 17:04
Alkaline Phosphatase 101 U/L (38-126) 09/05/23 17:04
Total Protein 7.0 g/dl (6.3-8.2) 09/05/23 17:04
Albumin 3.6 g/dl (3.5-5.0) 09/05/23 17:04
Physical Exam
-
AAOx3
No tachypnea on RA
Abd soft
Left heel dressing CDI, no evidence of bleeding
Left foot warm, pink, graft palpable
--- NOTE | 2023-09-15 10:57 | W.PN.ID1 ---
Date of Service
Date of Service: September 15, 2023
Today's Communication
- c/w ceftriaxone 2 gm IV q24 hrs
Assessment / Plan
Osteomyelitis of the L Heel
PAD/CAD
- c/w ceftriaxone 2 gm IV q24 hrs
- PICC line - script on paper chart
- weekly labs while on OPAT
- follow up in clinic in about 6 weeks
Chief Complaint
-: Other (probable osteomyelitis)
Subjective / Review of Systems
afebrile
bp stable
without leukocytosis
cr stable
no complaints
Vital Signs / Physical Exam
Vital Signs
Vital Signs
Temp Pulse Resp BP Pulse Ox
97.9 F 92 14 115/62 99
09/15/23 08:03 09/15/23 08:14 09/15/23 08:14 09/15/23 08:03 09/15/23 08:14
Physical Exam
Constitutional: No Acute Distress
Cardiovascular: Regular Rate and S1/S2; Negative Murmur or Rub
Pulmonary: Clear and Symmetric; Negative Wheezes or Rales
Gastrointestinal: Soft, Non Tender, Non Distended and Normal Bowel Sounds
Skin: Warm and Dry; Negative Rash or Jaundice
Lines: PICC
Objective Data
Lab Data
Lab Results
09/15/23 05:27
09/15/23 05:27
Estimated Creat Clear 63 ml/min 09/15/23 05:27
Total Bilirubin 0.6 mg/dl (0.2-1.3) 09/05/23 17:04
AST 37 U/L (17-59) 09/05/23 17:04
ALT 19 U/L (0-50) 09/05/23 17:04
Alkaline Phosphatase 101 U/L (38-126) 09/05/23 17:04
Most recent labs reviewed.
Micro Results:
09/06/23 14:23 Blood Culture - Final
Blood/Venous No Growth - Final Report
09/05/23 17:04 Blood Culture - Final
Blood/Venous No Growth - Final Report
09/08/23 16:30 Tissue Culture - Final
Heel - Left Escherichia coli
Gram Stain - Final
09/06/23 15:15 Wound Culture - Final
Heel - Left Escherichia coli
Pseudomonas aeruginosa
Pseudomonas aeruginosa#2
Gram Stain - Final
--- NOTE | 2023-09-15 11:33 | W.PN.HOSP.TC ---
Addendum entered and electronically signed by Saadia Chavez MD 09/15/23 11:44:
Discussed with vascular team, they would like to restart trial of Eliquis to see if he continues to bleed or not, and if the bleeding persists, then the patient would not be a candidate for vac.
Eliquis has been resumed by vascular. Will hold Lovenox subcu
Original Note:
Today's Communication/Plan
-
see A/P
Assessment / Plan
Assessment / Plan
77-year-old male with left heel ulcer. Visiting nurse recommended admission.
JASON 08/18/2023
Right lower extremity 0.62 consistent with moderate arterial insufficiency improved from prior study 0.50. TBI severely reduced 0.26 stable.
Left lower extremity JASON not performed secondary to lower extremity bypass. TBI moderate to severely reduced 0.37. No stenosis of common femoral through popliteal artery below popliteal more than 75% stenosis?
MRI-enhancement of the posterior inferior aspect of the calcaneus consistent with osteomyelitis in the area of the nonhealing ulcer. No abscess.
A/P:
# Infected left heel wound- unstageable to stage IV
# Osteomyelitis of the Left calcaneus per MRI and confirmed on pathology
Patient has been followed by [facility] wound care and debrided weekly.
Status post arteriogram 09/08/2023- no vascular interventions needed
Status post L heel debridement of the wound
OR cultures with E. coli
Superficial wound cultures with Pseudomonas and E. coli
Pathology confirmed acute osteomyelitis.
IV Merrem -> ceftriaxone 2 gm iv q24 hrs per ID , tentatively [address]
was unsuccessful with wound VAC placement due to pain and bleeding, [facility] plan to place VAC tomorrow 09/15 if heel remains dry without evidence of bleeding
# Acute blood loss anemia, related to OR debridement, dilutional from IVF, and now bleeding from VAC placement
Hgb today 7.6, from 8.1, baseline ~9.0
transfuse 1 unit PRBC
Monitor H/H
# Peripheral artery disease, clinically limb-threatening ischemia with nonhealing left heel wound
# History of left popliteal to dorsalis pedis bypass complicated with left inguinal infection/sepsis 05/29/2023
# History of right common iliac and right popliteal stents
Arteriogram 09/08/23- no interventions
# Acute kidney injury, likely IV dye related from arteriogram, resolved
resumed COTTON FACTOR Valsartan
Cont to hold Lasix, can consider resuming upon discharge
s/p gentle IVF
# Chronic pain with narcotic dependence
# Chronic back pain
Patient states that he does not take OxyContin anymore only oxycodone, therefore stopped OxyContin
Oxycodone 5 mg every 4 hours as needed for pain
Dilaudid for severe pain
Cont COTTON FACTOR gabapentin 300 mg HS and added 100 mg daily
# Coronary disease with history of CABG, complicated by sternal debridement and pectoral flap
Continue Plavix, statin and beta-juan
resumed valsartan
# Chronic heart failure with preserved ejection fraction
Continue Jardiance and beta-juan
resumed valsartan
Cont to hold Lasix, can consider resuming upon discharge
# Persistent atrial fibrillation
# History of cardioversion and ablation in the past
continue beta-juan
Eliquis held again 09/12 due to bleeding when wound vac was placed, resume when cleared by vascular
# Pacemaker 2020
# Bioprosthetic aortic and mitral valve replacements
# Constipation has resolved
# COPD- not in exacerbation
Continue budesonide/formoterol
# Chronic anemia
Iron studies and B12 sufficient
# Hyperlipidemia-continue Lipitor
# Gout-continue allopurinol
# Prostate disease-continue Flomax
# Insomnia-continue trazodone
# History of vertigo
# History of cervical discectomy for herniated disc
# Psoriasis
# Ex-smoker
DVT prophylaxis- Eliquis held again 09/12 due to bleeding when wound vac was placed, resume when cleared by vascular. Cont Lovenox subcu.
DW at bedside
Anticipated Discharge: 24 - 48 hours
Subjective/Interval History
-
Date of Service: September 15, 2023
Objective Data
-
Labs:
Laboratory Results
09/15/23
05:27
WBC 6.3
Hgb 7.6 L
Hct 21.8 L
Plt Count 143
Sodium 132 L
Potassium 4.5
Chloride 102
Carbon Dioxide 21 L
BUN 34 H
Creatinine 1.0
Glucose 95
Calcium 8.9
Vital Signs:
Vital Signs
Temp Pulse Resp BP Pulse Ox
36.6 C 92 14 115/62 99
09/15/23 08:03 09/15/23 08:14 09/15/23 08:14 09/15/23 08:03 09/15/23 08:14
I&O
09/14/23 09/15/23 09/16/23
06:59 06:59 06:59
Intake Total 980 / 980 420 / 420 510 / 510
Output Total 1710 / 1710 450 / 450
Balance -730 / -730 -30 / -30 510 / 510
Review of Systems
-
All other systems: Reviewed and negative
Physical Exam
-
General: Well Developed, No Apparent Distress, Comfortable, Conversant and Appears Chronically Ill
HEENT: Normocephalic, Atraumatic and Moist Mucous Membranes
Respiratory: Clear to Auscultation and Non Labored Respirations; Negative Accessory Resp Muscle Use
Cardiac: S1/S2 and Irregular Rhythm
GI: Soft, Nontender, Nondistended and Normal Bowel Sounds
Rectal: Deferred by Provider
Musculoskeletal: No Clubbing and No Cyanosis
Skin: Warm
Neuro: Awake
Psych: Calm and Intact Judgement/Insight
Data Reviewed
-
Labs: Labs Reviewed by me
[2023-09-15 12:20] VITALS: BP 125/63
[2023-09-15 12:40] VITALS: BP 132/57
--- NOTE | 2023-09-15 13:36 | PN.CDI ---
CDI
- -
CDI:
Physician Documentation Request
Admit Date: 09/05/23 20:34
Dear Doctor Kathy,
Patient admitted with Osteomyelitis of the Left calcaneus
Recent sodium resulted as follows:
Laboratory Tests
09/11/23 09/12/23 09/13/23
05:55 04:49 04:29
Sodium 136 135 132 L
09/14/23 09/15/23
03:55 05:27
Sodium 131 L 132 L
Based on the above, could you please provide a diagnosis that supports the above lab abnormalities and additional evaluation/monitoring:
Hyponatremia
Abnormal lab values clinically insignificant
Other
Use of terms such as suspected, likely, concern for, or probable (associated with a specific diagnosis that is being evaluated, monitored, or treated as if it exists) are acceptable and can be coded in the inpatient setting, when documented at the
time of discharge.
Thank you,
Eugenie Ho RN, BSN
CDI Specialist
tiger text
Please use your independent medical judgment in providing your response.
[2023-09-15 14:41] VITALS: BP 151/75
[2023-09-15] MEDS: ROCEPHIN 2000 MG IV (17:29)
[2023-09-15] MEDS: ZYRTEC 10 MG PO (17:30)
[2023-09-15] MEDS: JARDIANCE 10 MG PO (17:30)
[2023-09-15] MEDS: TOPROL XL 50 MG PO (17:30)
[2023-09-15] MEDS: STERILE WATER FOR INJECTION 20 ML IV (17:30)
[2023-09-15] MEDS: NEURONTIN 300 MG PO (17:30)
[2023-09-15] MEDS: ELIQUIS 5 MG PO (19:28)
[2023-09-15] MEDS: DILAUDID 0.25 MG IV (19:30)
[2023-09-15 22:40] VITALS: BP 103/50
[2023-09-16] MEDS: ROXICODONE 5 MG PO ×4 (01:29→20:44)
[2023-09-16] MEDS: TYLENOL 650 MG PO ×2 (01:29→08:12)
[2023-09-16 06:13] VITALS: BMI 21.7
[2023-09-16 07:24] VITALS: BP 139/61
--- NOTE | 2023-09-16 08:03 | W.PN.VS ---
Today's Communication / Plan
-
as above
Assessment/Plan
-
Plan:
-Continue Eliquis
-VAC
-PT/OT
-OK for toe tap pressure to left foot. Strict heel off loading otherwise
-Prevalons while in bed bilat
Subjective Data
-
Date of Service: September 16, 2023
No events overnight
No complains
Objective Data
-
Vital Signs
Temp Pulse Resp BP Pulse Ox
97.7 F 95 17 139/61 99
09/16/23 07:24 09/16/23 07:24 09/16/23 07:24 09/16/23 07:24 09/16/23 07:24
Intake and Output
09/15/23 09/16/23 09/17/23
06:59 06:59 07:59
Intake Total 420 / 420 1780 / 1780
Output Total 450 / 450 2049
Balance -30 / -30 -270 / -270
Intake:
Oral fluids 420 / 420 1530 / 1530
Blood Product Amount Infused ( 250 / 250
mL)
Packed Rbc Leukoreduced Unit 250 / 250
[id number]
Output:
Urine, Voided 450 / 450 2049
Calcium 8.9 mg/dl (8.4-10.2) 09/15/23 05:27
Magnesium 2.4 mg/dl (1.6-2.3) H 09/14/23 03:55
Total Bilirubin 0.6 mg/dl (0.2-1.3) 09/05/23 17:04
AST 37 U/L (17-59) 09/05/23 17:04
ALT 19 U/L (0-50) 09/05/23 17:04
Alkaline Phosphatase 101 U/L (38-126) 09/05/23 17:04
Total Protein 7.0 g/dl (6.3-8.2) 09/05/23 17:04
Albumin 3.6 g/dl (3.5-5.0) 09/05/23 17:04
Physical Exam
-
NAD
Alert/oriented
Non labored breathing
Left foot with ecchymotic area over dorsum. Was covered with pink nonadherent pad
Palp graft pulse
Left heel packing removed. Dry. No odor
VAC placed
[2023-09-16 08:08] LABS: Hematocrit 25.7 % (39.0-52.0); Mean Corpuscular Hgb 33.2 pg (27.0-31.0); Mean Corpuscular Volume 94.8 fL (80.0-94.0); Mean Platelet Volume 9.8 fL (7.4-10.4); Platelet Count 152 10^3/uL (130-400); Red Blood Cell Count 2.71 10^6/uL (4.70-6.10); Red Cell Dist. Width 18.3 % (11.5-14.5); White Blood Cell Count 6.1 10^3/uL (4.8-10.8)
[2023-09-16] MEDS: ELIQUIS 5 MG PO ×2 (08:10→20:42)
[2023-09-16] MEDS: SINGULAIR 10 MG PO (08:10)
[2023-09-16] MEDS: VITAMIN D3 (cholecalciferol) 25 MCG PO (08:10)
[2023-09-16] MEDS: VITAMIN B-12 1000 MCG PO (08:10)
[2023-09-16] MEDS: LIPITOR 10 MG PO (08:11)
[2023-09-16] MEDS: PLAVIX 75 MG PO (08:11)
[2023-09-16] MEDS: FLOMAX 0.400000000000000022 MG PO (08:11)
[2023-09-16] MEDS: SENOKOT 17.1999999999999993 MG PO ×2 (08:11→20:42)
[2023-09-16] MEDS: DIOVAN 20 MG PO (08:11)
[2023-09-16] MEDS: ZYLOPRIM 100 MG PO (08:12)
[2023-09-16] MEDS: MIRALAX 17 GRAMS PO (08:12)
[2023-09-16] MEDS: NEURONTIN 100 MG PO (08:12)
[2023-09-16] MEDS: COLACE 100 MG PO ×2 (08:12→20:42)
[2023-09-16] MEDS: SYMBICORT 160/4.5 MCG INHALER 2 PUFF INH ×2 (08:15→19:30)
[2023-09-16 08:33] LABS: Blood Urea Nitrogen 29 mg/dl (9-20); Calcium 9.1 mg/dl (8.4-10.2); Carbon Dioxide 23 mmol/L (22-30); Chloride 104 mmol/L (98-107); Estimated Creatinine Clearance 69 ml/min; Glucose 91 mg/dl (70-99); Potassium 4.4 mmol/L (3.5-5.1); Sodium 133 mmol/L (135-145); eGFR > 60.00
--- NOTE | 2023-09-16 09:39 | PTCARENOTE ---
RN called to bedside by [facility]acular physician MARGARITA. MD asked whether RN knew patient had a wound on pedal area of Left foot. RN expressed to MD, RN's have not been told not to change dressing and that vascular MD are the only ones to do so. Wound
present on anterior pedal of left foot, reddened and small area of necrosis black. MD states he will keep an eye on it. 4x4 was applied to site by and wrapped with cling. Wound VAC applied to left plantar.
[2023-09-16 12:34] VITALS: BP 120/55; PULSE 69; O2SAT 96
--- NOTE | 2023-09-16 12:56 | W.PN.HOSP.TC ---
Today's Communication/Plan
-
vasc replaced VAC 09/15 and pt appears to be tolerating well
PT/OT
Assessment / Plan
Assessment / Plan
77-year-old male with left heel ulcer. Visiting nurse recommended admission.
JASON 08/18/2023
Right lower extremity 0.62 consistent with moderate arterial insufficiency improved from prior study 0.50. TBI severely reduced 0.26 stable.
Left lower extremity JASON not performed secondary to lower extremity bypass. TBI moderate to severely reduced 0.37. No stenosis of common femoral through popliteal artery below popliteal more than 75% stenosis?
MRI-enhancement of the posterior inferior aspect of the calcaneus consistent with osteomyelitis in the area of the nonhealing ulcer. No abscess.
A/P:
# Infected left heel wound- unstageable to stage IV
# Osteomyelitis of the Left calcaneus per MRI and confirmed on pathology
Patient has been followed by [facility] wound care and debrided weekly.
Status post arteriogram 09/08/2023- no vascular interventions needed
Status post L heel debridement of the wound
Superficial wound cultures with Pseudomonas and E. coli.
OR cultures with E. coli.
Pathology confirmed acute osteomyelitis.
IV Merrem -> ceftriaxone 2 gm iv q24 hrs per ID , tentatively for [address]
was previously unsuccessful with wound VAC placement due to pain and bleeding, vasc replaced VAC 09/15 and pt appears to be tolerating well
PT/OT
# Acute blood loss anemia, related to OR debridement, dilutional from IVF, and now bleeding from VAC placement
Hgb today 9.0 after 1 unit PRBC transfusion, baseline ~9.0
Monitor H/H
# Peripheral artery disease, clinically limb-threatening ischemia with nonhealing left heel wound
# History of left popliteal to dorsalis pedis bypass complicated with left inguinal infection/sepsis 05/29/2023
# History of right common iliac and right popliteal stents
Arteriogram 09/08/23- no interventions
# Acute kidney injury, likely IV dye related from arteriogram, resolved
resumed LIFE SCIENCES TEACHER Valsartan
Cont to hold Lasix, can consider resuming upon discharge
s/p gentle IVF
# Chronic pain with narcotic dependence
# Chronic back pain
Patient states that he does not take OxyContin anymore only oxycodone, therefore stopped OxyContin
Oxycodone 5 mg every 4 hours as needed for pain
Dilaudid for severe pain
Cont LIFE SCIENCES TEACHER gabapentin 300 mg HS and added 100 mg daily
# Coronary disease with history of CABG, complicated by sternal debridement and pectoral flap
Continue Plavix, statin and beta-juan
resumed valsartan
# Chronic heart failure with preserved ejection fraction
Continue Jardiance and beta-juan
resumed valsartan
Cont to hold Lasix, can consider resuming upon discharge
# Persistent atrial fibrillation
# History of cardioversion and ablation in the past
continue beta-juan
Eliquis resumed
# Pacemaker 2020
# Bioprosthetic aortic and mitral valve replacements
# Constipation has resolved
# COPD- not in exacerbation
Continue budesonide/formoterol
# Chronic anemia
Iron studies and B12 sufficient
# Hyperlipidemia-continue Lipitor
# Gout-continue allopurinol
# Prostate disease-continue Flomax
# Insomnia-continue trazodone
# History of vertigo
# History of cervical discectomy for herniated disc
# Psoriasis
# Ex-smoker
DVT prophylaxis- Eliquis resumed
DW at bedside
Anticipated Discharge: 24 - 48 hours
Subjective/Interval History
-
Date of Service: September 16, 2023
Objective Data
-
Labs:
Laboratory Results
09/16/23
07:43
WBC 6.1
Hgb 9.0 L
Hct 25.7 L
Plt Count 152
Sodium 133 L
Potassium 4.4
Chloride 104
Carbon Dioxide 23
BUN 29 H
Creatinine 0.9
Glucose 91
Calcium 9.1
Vital Signs:
Vital Signs
Temp Pulse Resp BP Pulse Ox
36.5 C 92 16 139/61 99
09/16/23 07:24 09/16/23 08:20 09/16/23 08:20 09/16/23 08:11 09/16/23 08:20
I&O
09/15/23 09/16/23 09/17/23
06:59 06:59 07:59
Intake Total 420 / 420 1779
Output Total 450 / 450 2049
Balance -30 / -30 -270 / -270
Review of Systems
-
All other systems: Reviewed and negative
Physical Exam
-
General: Well Developed, No Apparent Distress, Comfortable, Conversant and Appears Chronically Ill
HEENT: Normocephalic, Atraumatic and Moist Mucous Membranes
Respiratory: Clear to Auscultation and Non Labored Respirations; Negative Accessory Resp Muscle Use
Cardiac: S1/S2 and Irregular Rhythm
GI: Soft, Nontender, Nondistended and Normal Bowel Sounds
Rectal: Deferred by Provider
Musculoskeletal: No Clubbing and No Cyanosis
Skin: Warm and Other (LLE with wound vac)
Neuro: Awake
Psych: Calm and Intact Judgement/Insight
Data Reviewed
-
Labs: Labs Reviewed by me
[2023-09-16 15:37] VITALS: BP 119/66
[2023-09-16] MEDS: ROCEPHIN 2000 MG IV (16:52)
[2023-09-16] MEDS: ZYRTEC 10 MG PO (16:52)
[2023-09-16] MEDS: NEURONTIN 300 MG PO (16:52)
[2023-09-16] MEDS: JARDIANCE 10 MG PO (16:52)
[2023-09-16] MEDS: STERILE WATER FOR INJECTION 20 ML IV (16:53)
[2023-09-16] MEDS: TOPROL XL 50 MG PO (17:02)
[2023-09-16 23:10] VITALS: BP 138/56
--- NOTE | 2023-09-17 06:12 | PTCARENOTE ---
Pt w/ small itchy raised rash on the base of his neck. Also noted L arm > than R arm. Pt stated this has started recently.
[2023-09-17 07:00] VITALS: BP 135/68
[2023-09-17 07:23] LABS: Hematocrit 24.9 % (39.0-52.0); Hemoglobin 8.6 g/dL (13.0-18.0); Mean Corp Hgb Conc. 34.5 g/dL (33.0-37.0); Mean Corpuscular Hgb 33.2 pg (27.0-31.0); Mean Corpuscular Volume 96.1 fL (80.0-94.0); Mean Platelet Volume 10.1 fL (7.4-10.4); Platelet Count 157 10^3/uL (130-400); Red Blood Cell Count 2.59 10^6/uL (4.70-6.10); Red Cell Dist. Width 17.6 % (11.5-14.5); White Blood Cell Count 6.6 10^3/uL (4.8-10.8)
[2023-09-17 07:48] LABS: Blood Urea Nitrogen 25 mg/dl (9-20); Calcium 8.7 mg/dl (8.4-10.2); Carbon Dioxide 22 mmol/L (22-30); Chloride 106 mmol/L (98-107); Estimated Creatinine Clearance 69 ml/min; Glucose 82 mg/dl (70-99); Potassium 4.2 mmol/L (3.5-5.1); Sodium 133 mmol/L (135-145); eGFR > 60.00
[2023-09-17] MEDS: SYMBICORT 160/4.5 MCG INHALER 2 PUFF INH ×2 (08:27→20:09)
[2023-09-17] MEDS: MIRALAX 17 GRAMS PO (08:43)
[2023-09-17] MEDS: COLACE 100 MG PO ×2 (08:44→20:28)
[2023-09-17] MEDS: PLAVIX 75 MG PO (08:44)
[2023-09-17] MEDS: ZYLOPRIM 100 MG PO (08:44)
[2023-09-17] MEDS: ELIQUIS 5 MG PO ×2 (08:45→20:29)
[2023-09-17] MEDS: SENOKOT 17.1999999999999993 MG PO ×2 (08:45→20:26)
[2023-09-17] MEDS: DIOVAN 20 MG PO (08:45)
[2023-09-17] MEDS: FLOMAX 0.400000000000000022 MG PO (08:45)
[2023-09-17] MEDS: VITAMIN D3 (cholecalciferol) 25 MCG PO (08:45)
[2023-09-17] MEDS: NEURONTIN 100 MG PO (08:45)
[2023-09-17] MEDS: TYLENOL 650 MG PO (08:46)
[2023-09-17] MEDS: VITAMIN B-12 1000 MCG PO (08:46)
[2023-09-17] MEDS: SINGULAIR 10 MG PO (08:46)
[2023-09-17] MEDS: LIPITOR 10 MG PO (08:46)
--- NOTE | 2023-09-17 12:07 | W.PN.HOSP.TC ---
Addendum entered and electronically signed by Saadia Chavez MD 09/17/23 17:03:
# Hyponatremia
Original Note:
Today's Communication/Plan
-
see A/P
Dispo planning to SNF
Assessment / Plan
Assessment / Plan
77-year-old male with left heel ulcer. Visiting nurse recommended admission.
JASON 08/18/2023
Right lower extremity 0.62 consistent with moderate arterial insufficiency improved from prior study 0.50. TBI severely reduced 0.26 stable.
Left lower extremity JASON not performed secondary to lower extremity bypass. TBI moderate to severely reduced 0.37. No stenosis of common femoral through popliteal artery below popliteal more than 75% stenosis?
MRI-enhancement of the posterior inferior aspect of the calcaneus consistent with osteomyelitis in the area of the nonhealing ulcer. No abscess.
A/P:
# Infected left heel wound- unstageable to stage IV
# Osteomyelitis of the Left calcaneus per MRI and confirmed on pathology
Patient has been followed by [facility] wound care and debrided weekly.
Status post arteriogram 09/08/2023- no vascular interventions needed
Status post L heel debridement of the wound
Superficial wound cultures with Pseudomonas and E. coli.
OR cultures with E. coli.
Pathology confirmed acute osteomyelitis.
IV Merrem -> ceftriaxone 2 gm iv q24 hrs per ID , tentatively for [address]
Previously unsuccessful with wound VAC placement (due to pain and bleeding), finally tolerated VAC replaced on 09/15 by vascular
PT/OT recc SNF
# Acute blood loss anemia, related to OR debridement, dilutional from IVF, and now bleeding from VAC placement
Hgb today 8.6, was s/p 1 unit PRBC transfusion previously, baseline ~9.0
Monitor H/H
# Peripheral artery disease, clinically limb-threatening ischemia with nonhealing left heel wound
# History of left popliteal to dorsalis pedis bypass complicated with left inguinal infection/sepsis 05/29/2023
# History of right common iliac and right popliteal stents
Arteriogram 09/08/23- no interventions
# Acute kidney injury, likely IV dye related from arteriogram, resolved
resumed DATABASE ADMINISTRATOR Valsartan
Cont to hold Lasix, can consider resuming upon discharge
s/p gentle IVF
# Chronic pain with narcotic dependence
# Chronic back pain
Patient states that he does not take OxyContin anymore only oxycodone, therefore stopped OxyContin
Oxycodone 5 mg every 4 hours as needed for pain
Dilaudid for severe pain
Cont DATABASE ADMINISTRATOR gabapentin 300 mg HS and added 100 mg daily
# Coronary disease with history of CABG, complicated by sternal debridement and pectoral flap
Continue Plavix, statin and beta-juan
resumed valsartan
# Chronic heart failure with preserved ejection fraction
Continue Jardiance and beta-juan
resumed valsartan
Cont to hold Lasix, can consider resuming upon discharge
# Persistent atrial fibrillation
# History of cardioversion and ablation in the past
continue beta-juan
Eliquis resumed
# Pacemaker 2020
# Bioprosthetic aortic and mitral valve replacements
# Constipation has resolved
# COPD- not in exacerbation
Continue budesonide/formoterol
# Chronic anemia
Iron studies and B12 sufficient
# Hyperlipidemia-continue Lipitor
# Gout-continue allopurinol
# Prostate disease-continue Flomax
# Insomnia-continue trazodone
# History of vertigo
# History of cervical discectomy for herniated disc
# Psoriasis
# Ex-smoker
DVT prophylaxis- Eliquis resumed
Dispo: SNF
DW at bedside
Anticipated Discharge: Within 24 hours
Subjective/Interval History
-
Date of Service: September 17, 2023
Objective Data
-
Labs:
Laboratory Results
09/17/23
06:17
WBC 6.6
Hgb 8.6 L
Hct 24.9 L
Plt Count 157
Sodium 133 L
Potassium 4.2
Chloride 106
Carbon Dioxide 22
BUN 25 H
Creatinine 0.9
Glucose 82
Calcium 8.7
Vital Signs:
Vital Signs
Temp Pulse Resp BP Pulse Ox
36.7 C 89 16 135/68 97
09/17/23 07:00 09/17/23 08:25 09/17/23 08:25 09/17/23 07:00 09/17/23 08:25
I&O
09/16/23 09/17/23 09/18/23
05:59 06:59 06:59
Intake Total
Output Total
Balance
Review of Systems
-
All other systems: Reviewed and negative
Physical Exam
-
General: Well Developed, No Apparent Distress, Comfortable, Conversant, Appears Chronically Ill and Cachectic
HEENT: Normocephalic, Atraumatic and Moist Mucous Membranes
Respiratory: Clear to Auscultation and Non Labored Respirations; Negative Accessory Resp Muscle Use
Cardiac: S1/S2 and Irregular Rhythm
GI: Soft, Nontender, Nondistended and Normal Bowel Sounds
Rectal: Deferred by Provider
Musculoskeletal: No Clubbing and No Cyanosis
Skin: Warm and Other (LLE with wound vac)
Neuro: Awake
Psych: Calm and Intact Judgement/Insight
Data Reviewed
-
Labs: Labs Reviewed by me
[2023-09-17] MEDS: ROXICODONE 5 MG PO ×3 (12:38→23:21)
--- NOTE | 2023-09-17 13:20 | CM ---
Per Attending patient stable for discharge; Met with patient and at bedside
declined [facility] [place] SNFs;
[place] may be acceptable; they have a bed available
provided list with facilities near [place]; referrals be sent to Alejandro Escalante, Kristel Whyte, Felecia, and Bhavya @ [facility]
Referrals and updated clinicals sent via [facility]
[2023-09-17 15:00] VITALS: BP 108/46
[2023-09-17] MEDS: ROCEPHIN 2000 MG IV (17:24)
[2023-09-17] MEDS: TOPROL XL PO ×2 (17:24→17:27)
[2023-09-17] MEDS: ZYRTEC 10 MG PO (17:24)
[2023-09-17] MEDS: NEURONTIN 300 MG PO (17:24)
[2023-09-17] MEDS: JARDIANCE 10 MG PO (17:24)
[2023-09-17] MEDS: STERILE WATER FOR INJECTION 20 ML IV (17:25)
[2023-09-17 23:03] VITALS: BP 136/54
[2023-09-18 04:52] LABS: Hematocrit 25.3 % (39.0-52.0); Hemoglobin 8.8 g/dL (13.0-18.0); Mean Corp Hgb Conc. 34.8 g/dL (33.0-37.0); Mean Corpuscular Hgb 33.3 pg (27.0-31.0); Mean Corpuscular Volume 95.8 fL (80.0-94.0); Mean Platelet Volume 9.1 fL (7.4-10.4); Platelet Count 165 10^3/uL (130-400); Red Blood Cell Count 2.64 10^6/uL (4.70-6.10); Red Cell Dist. Width 17.1 % (11.5-14.5); White Blood Cell Count 6.9 10^3/uL (4.8-10.8)
[2023-09-18 05:26] LABS: Blood Urea Nitrogen 23 mg/dl (9-20); Calcium 8.8 mg/dl (8.4-10.2); Carbon Dioxide 24 mmol/L (22-30); Chloride 103 mmol/L (98-107); Estimated Creatinine Clearance 78 ml/min; Glucose 94 mg/dl (70-99); Potassium 4.2 mmol/L (3.5-5.1); Sodium 134 mmol/L (135-145); eGFR > 60.00
[2023-09-18] MEDS: SYMBICORT 160/4.5 MCG INHALER 2 PUFF INH ×2 (07:49→19:34)
[2023-09-18 08:10] VITALS: BP 123/65
[2023-09-18] MEDS: SENOKOT 17.1999999999999993 MG PO ×2 (08:13→20:15)
[2023-09-18] MEDS: FLOMAX 0.400000000000000022 MG PO (08:14)
[2023-09-18] MEDS: NEURONTIN 100 MG PO (08:14)
[2023-09-18] MEDS: VITAMIN B-12 1000 MCG PO (08:14)
[2023-09-18] MEDS: ZYLOPRIM 100 MG PO (08:14)
[2023-09-18] MEDS: ELIQUIS 5 MG PO ×2 (08:14→20:15)
[2023-09-18] MEDS: SINGULAIR 10 MG PO (08:14)
[2023-09-18] MEDS: PLAVIX 75 MG PO (08:14)
[2023-09-18] MEDS: LIPITOR 10 MG PO (08:15)
[2023-09-18] MEDS: MIRALAX 17 GRAMS PO (08:15)
[2023-09-18] MEDS: COLACE 100 MG PO ×2 (08:15→20:15)
[2023-09-18] MEDS: VITAMIN D3 (cholecalciferol) 25 MCG PO (08:15)
[2023-09-18] MEDS: DIOVAN 20 MG PO (08:15)
[2023-09-18] MEDS: ROXICODONE 5 MG PO ×3 (08:57→18:23)
--- NOTE | 2023-09-18 10:26 | W.PN.ID1 ---
Date of Service
Date of Service: September 18, 2023
Today's Communication
- follow up in clinic in about 6 weeks
Assessment / Plan
Osteomyelitis of the L Heel
PAD/CAD
- c/w ceftriaxone 2 gm IV q24 hrs
- PICC line - script on paper chart
- weekly labs while on OPAT
- follow up in clinic in about 6 weeks
Chief Complaint
-: Other (probable osteomyelitis)
Subjective / Review of Systems
afebrile
bp stable
without leukocytosis
cr stable
wound vac in place
PICC in place
Vital Signs / Physical Exam
Vital Signs
Vital Signs
Temp Pulse Resp BP Pulse Ox
97.8 F 88 16 123/65 100
09/18/23 08:10 09/18/23 08:10 09/18/23 08:10 09/18/23 08:10 09/18/23 08:10
Physical Exam
Constitutional: No Acute Distress
Cardiovascular: Regular Rate and S1/S2; Negative Murmur or Rub
Pulmonary: Clear and Symmetric; Negative Wheezes or Rales
Gastrointestinal: Soft, Non Tender, Non Distended and Normal Bowel Sounds
Skin: Warm and Dry; Negative Rash or Jaundice
Lines: PICC and Other (wound vac)
Objective Data
Lab Data
Lab Results
09/18/23 04:41
09/18/23 04:41
Estimated Creat Clear 78 ml/min 09/18/23 04:41
Total Bilirubin 0.6 mg/dl (0.2-1.3) 09/05/23 17:04
AST 37 U/L (17-59) 09/05/23 17:04
ALT 19 U/L (0-50) 09/05/23 17:04
Alkaline Phosphatase 101 U/L (38-126) 09/05/23 17:04
Most recent labs reviewed.
Micro Results:
09/06/23 14:23 Blood Culture - Final
Blood/Venous No Growth - Final Report
09/05/23 17:04 Blood Culture - Final
Blood/Venous No Growth - Final Report
09/08/23 16:30 Tissue Culture - Final
Heel - Left Escherichia coli
Gram Stain - Final
09/06/23 15:15 Wound Culture - Final
Heel - Left Escherichia coli
Pseudomonas aeruginosa
Pseudomonas aeruginosa#2
Gram Stain - Final
[2023-09-18 11:00] VITALS: BMI 20.8
--- NOTE | 2023-09-18 11:19 | W.PN.HOSP.TC ---
Today's Communication/Plan
-
Medically stable for discharge to rehab
Assessment / Plan
Assessment / Plan
77-year-old male with left heel ulcer. Visiting nurse recommended admission.
JASON 08/18/2023
Right lower extremity 0.62 consistent with moderate arterial insufficiency improved from prior study 0.50. TBI severely reduced 0.26 stable.
Left lower extremity JASON not performed secondary to lower extremity bypass. TBI moderate to severely reduced 0.37. No stenosis of common femoral through popliteal artery below popliteal more than 75% stenosis?
MRI-enhancement of the posterior inferior aspect of the calcaneus consistent with osteomyelitis in the area of the nonhealing ulcer. No abscess.
CVS: S1-S2 irregular
Chest: CTA B/L
Abdomen: Soft, NT / Bowel sounds present
Extremities: No edema, right heel small stage 2 PI, Left heel with a wound Vac
BAKER CHEF: Non focal exam
A/P:
# Infected left heel wound- unstageable to stage IV
# Osteomyelitis of the Left calcaneus per MRI and confirmed on pathology
Patient has been followed by [facility] wound care and debrided weekly.
Status post arteriogram 09/08/2023- no vascular interventions needed
Status post L heel debridement of the wound
Superficial wound cultures with Pseudomonas and E. coli.
OR cultures with E. coli.
Pathology confirmed acute osteomyelitis.
IV Merrem -> ceftriaxone 2 gm iv q24 hrs per ID , tentatively for [address]
Previously unsuccessful with wound VAC placement (due to pain and bleeding), finally tolerated VAC replaced on 09/15 by vascular
PT/OT recc SNF
# Acute blood loss anemia, related to OR debridement, dilutional from IVF, and now bleeding from VAC placement
Hgb today 8.6, was s/p 1 unit PRBC transfusion previously, baseline ~9.0
Monitor H/H
# Peripheral artery disease, clinically limb-threatening ischemia with nonhealing left heel wound
# History of left popliteal to dorsalis pedis bypass complicated with left inguinal infection/sepsis 05/29/2023
# History of right common iliac and right popliteal stents
Arteriogram 09/08/23- no interventions
# Acute kidney injury, likely IV dye related from arteriogram, resolved
Resumed STATISTICS TEACHER Valsartan and lasix
# Chronic pain with narcotic dependence
# Chronic back pain
Patient states that he does not take OxyContin anymore only oxycodone, therefore stopped OxyContin
Oxycodone 5 mg every 4 hours as needed for pain
Dilaudid for severe pain
Cont STATISTICS TEACHER gabapentin 300 mg HS and added 100 mg daily
# Coronary disease with history of CABG, complicated by sternal debridement and pectoral flap
Continue Plavix, statin and beta-juan,valsartan
# Chronic heart failure with preserved ejection fraction
Continue Jardiance and beta-juan,valsartan
Lasix
# Persistent atrial fibrillation
# History of cardioversion and ablation in the past
continue beta-juan
Eliquis resumed
# Pacemaker 2020
# Bioprosthetic aortic and mitral valve replacements
# Constipation has resolved
# COPD- not in exacerbation
Continue budesonide/formoterol
# Chronic anemia
Iron studies and B12 sufficient
# Hyperlipidemia-continue Lipitor
# Gout-continue allopurinol
# Prostate disease-continue Flomax
# Insomnia-continue trazodone
# History of vertigo
# History of cervical discectomy for herniated disc
# Psoriasis
# Ex-smoker
#DVT prophylaxis- Eliquis
Dispo: SNF
DW latex foam worker at bedside
Anticipated Discharge: Today
Subjective/Interval History
-
Date of Service: September 18, 2023
Objective Data
-
Labs:
Laboratory Results
09/18/23
04:41
WBC 6.9
Hgb 8.8 L
Hct 25.3 L
Plt Count 165
Sodium 134 L
Potassium 4.2
Chloride 103
Carbon Dioxide 24
BUN 23 H
Creatinine 0.8
Glucose 94
Calcium 8.8
Vital Signs:
Vital Signs
Temp Pulse Resp BP Pulse Ox
97.8 F 88 16 123/65 100
09/18/23 08:10 09/18/23 08:10 09/18/23 08:10 09/18/23 08:10 09/18/23 08:10
I&O
09/17/23 09/18/23 09/19/23
06:59 06:59 06:59
Intake Total 1190 / 1190
Output Total 1300 / 1300
Balance -110 / -110
--- NOTE | 2023-09-18 11:45 | WOUNDNOTE ---
LUZ RN NOTE: Followed up today along with Dr. Corbett, patient waiting for bed availability at [facility]. L heel with wound vac no bloody drainage. L anterior ankle with dry dark purple scab, open medially with pink shallow base. Suspect remainder of
wound also partial thickness, foam applied. Uday wrap in use over wound vac dressing, re applied loosely. R heel with scant drainage, foam in use. Waiting to hear back from vascular regarding next wound vac change, and if uday wrap can be stopped.
When discharged to [facility] wound vac dressing to be removed and saline WTD dressing applied. Patient instructed that dressing may be changed later this afternoon or tomorrow, will call [facility] for supplies if needed.
--- NOTE | 2023-09-18 12:13 | CM ---
Addendum entered by Maru Langston [facility] 09/18/23 17:38:
Received return call from [employer] and received auth [id number] level 1 from 09/18-09/24, NRD 09/23-phone number to call [phone]
Will convey this to admissions at .
Addendum entered by Maru Langston [facility] 09/18/23 16:55:
Left patient's a voice mail and encouraged return call so that she could be updated.
Addendum entered by Maru Langston [facility] 09/18/23 16:27:
Placed a call to patient's insurance, and spoke with a u.s. representative named, Jonh who took clinical and stated that he would review and render determination.
Addendum entered by Maru Langston [facility] 09/18/23 14:17:
Spoke with Robyn, in PT/OT who stated that therapy will see patient so auth can hopefully be obtained through insurance.
Original Note:
Reviewed chart, spoke with patient's . Reviewed facilities in [employer] that confirmed acceptance. Patient's did confirm that she has a chance to look into [facility] and she stated that she is agreeable for patient to go there.
Placed a call to admissions at and spoke with Mikki, who confirmed bed availability once auth is obtained through patient's insurance.
Will initiate auth.
Plan: Case management will continue to follow and assist with discharge planning. obtain obtaining authorization.
--- NOTE | 2023-09-18 12:30 | WOUNDNOTE ---
LUZ YATES NOTE: Confirmed with CORPORATE TAX PREPARER Zaira Wilks wound vac dressing can be changed tomorrow and if going to SNF apply saline WTD drsg. Can remove Uday wrap and discontinue use.
[2023-09-18 13:11] VITALS: BP 110/50
[2023-09-18] MEDS: LASIX 40 MG PO (13:13)
[2023-09-18 14:40] VITALS: BP 124/53; PULSE 75
[2023-09-18 15:08] VITALS: BP 124/53
[2023-09-18 15:23] VITALS: BP 124/53; PULSE 75
[2023-09-18] MEDS: NEURONTIN 300 MG PO (17:51)
[2023-09-18] MEDS: JARDIANCE 10 MG PO (17:52)
[2023-09-18] MEDS: ZYRTEC 10 MG PO (17:52)
[2023-09-18] MEDS: TOPROL XL 50 MG PO (17:52)
[2023-09-18] MEDS: STERILE WATER FOR INJECTION 20 ML IV (17:52)
[2023-09-18] MEDS: ROCEPHIN 2000 MG IV (17:53)
[2023-09-18 23:29] VITALS: BP 147/80
[2023-09-19] MEDS: ROXICODONE 5 MG PO ×4 (00:05→23:09)
[2023-09-19 06:00] VITALS: BMI 20.5
[2023-09-19 07:28] VITALS: BP 125/76
[2023-09-19] MEDS: SYMBICORT 160/4.5 MCG INHALER 2 PUFF INH ×2 (07:34→20:44)
[2023-09-19] MEDS: MIRALAX PO (07:46)
[2023-09-19] MEDS: PLAVIX 75 MG PO (07:48)
[2023-09-19] MEDS: VITAMIN D3 (cholecalciferol) 25 MCG PO (07:48)
[2023-09-19] MEDS: SINGULAIR 10 MG PO (07:48)
[2023-09-19] MEDS: LASIX 40 MG PO (07:48)
[2023-09-19] MEDS: NEURONTIN 100 MG PO (07:49)
[2023-09-19] MEDS: FLOMAX 0.400000000000000022 MG PO (07:49)
[2023-09-19] MEDS: ELIQUIS 5 MG PO ×2 (07:49→20:11)
[2023-09-19] MEDS: COLACE 100 MG PO ×2 (07:50→20:11)
[2023-09-19] MEDS: LIPITOR 10 MG PO (07:51)
[2023-09-19] MEDS: VITAMIN B-12 1000 MCG PO (07:51)
[2023-09-19] MEDS: DIOVAN 20 MG PO (07:51)
[2023-09-19] MEDS: SENOKOT 17.1999999999999993 MG PO ×2 (07:52→20:11)
[2023-09-19] MEDS: ZYLOPRIM 100 MG PO (07:52)
--- NOTE | 2023-09-19 10:06 | CM ---
Placed a call to Sumaya in admissions who confirmed acceptance for patient tomorrow at . Auth number was provided to her. She stated that the # for report is [phone] and fax# [phone]. Will convey to [facility] [address] and update patient's
.
Patient's updated and agreeable to the plan.
Plan: Case management will continue to follow and assist with discharge planning. has a bed available for patient tomorrow.
--- NOTE | 2023-09-19 10:47 | W.PN.ID1 ---
Date of Service
Date of Service: September 19, 2023
Today's Communication
ceftriaxone
dispo planning
Assessment / Plan
Osteomyelitis of the L Heel
PAD/CAD
- no significant new labs today
- c/w ceftriaxone 2 gm IV q24 hrs
- PICC line - script on paper chart
- weekly labs while on OPAT
- follow up in clinic in about 6 weeks
Chief Complaint
-: Other (probable osteomyelitis)
Subjective / Review of Systems
afebrile
bp stable
dispo planning
Vital Signs / Physical Exam
Vital Signs
Vital Signs
Temp Pulse Resp BP Pulse Ox
97.6 F 87 18 125/76 99
09/19/23 07:28 09/19/23 07:35 09/19/23 07:35 09/19/23 07:28 09/19/23 07:35
Physical Exam
Constitutional: No Acute Distress
Cardiovascular: Regular Rate and S1/S2; Negative Murmur or Rub
Pulmonary: Clear and Symmetric; Negative Wheezes or Rales
Gastrointestinal: Soft, Non Tender, Non Distended and Normal Bowel Sounds
Skin: Warm and Dry; Negative Rash or Jaundice
Wound: Other (dressing clean, dry, intact)
Objective Data
Lab Data
Lab Results
09/18/23 04:41
09/18/23 04:41
Estimated Creat Clear 78 ml/min 09/18/23 04:41
Total Bilirubin 0.6 mg/dl (0.2-1.3) 09/05/23 17:04
AST 37 U/L (17-59) 09/05/23 17:04
ALT 19 U/L (0-50) 09/05/23 17:04
Alkaline Phosphatase 101 U/L (38-126) 02/27/24 17:04
Most recent labs reviewed.
Micro Results:
09/06/23 14:23 Blood Culture - Final
Blood/Venous No Growth - Final Report
09/05/23 17:04 Blood Culture - Final
Blood/Venous No Growth - Final Report
09/08/23 16:30 Tissue Culture - Final
Heel - Left Escherichia coli
Gram Stain - Final
09/06/23 15:15 Wound Culture - Final
Heel - Left Escherichia coli
Pseudomonas aeruginosa
Pseudomonas aeruginosa#2
Gram Stain - Final
--- NOTE | 2023-09-19 13:21 | W.PN.HOSP.TC ---
Today's Communication/Plan
-
Discharge planning
Continue Rocephin
Assessment / Plan
Assessment / Plan
77-year-old male with left heel ulcer. Visiting nurse recommended admission.
JASON 08/18/2023
Right lower extremity 0.62 consistent with moderate arterial insufficiency improved from prior study 0.50. TBI severely reduced 0.26 stable.
Left lower extremity JASON not performed secondary to lower extremity bypass. TBI moderate to severely reduced 0.37. No stenosis of common femoral through popliteal artery below popliteal more than 75% stenosis?
MRI-enhancement of the posterior inferior aspect of the calcaneus consistent with osteomyelitis in the area of the nonhealing ulcer. No abscess.
CVS: S1-S2 irregular
Chest: CTA B/L
Abdomen: Soft, NT / Bowel sounds present
Extremities: No edema, right heel small stage 2 PI, Left heel with a wound Vac, left upper arm edema
RESPIRATORY CARE TECHNICIAN: Non focal exam
A/P:
# Infected left heel wound- unstageable to stage IV
# Osteomyelitis of the Left calcaneus per MRI and confirmed on pathology
Patient has been followed by [facility] wound care and debrided weekly.
Status post arteriogram 09/08/2023- no vascular interventions needed
Status post L heel debridement of the wound
Superficial wound cultures with Pseudomonas and E. coli.
OR cultures with E. coli.
Pathology confirmed acute osteomyelitis.
IV Merrem -> ceftriaxone 2 gm iv q24 hrs per ID , tentatively for [address]
Previously unsuccessful with wound VAC placement (due to pain and bleeding), finally tolerated VAC replaced on 09/15 by vascular
PT/OT recc SNF
# Acute blood loss anemia, related to OR debridement, dilutional from IVF, and now bleeding from VAC placement
s/p 1 unit PRBC transfusion previously, baseline ~9.0
# Peripheral artery disease, clinically limb-threatening ischemia with nonhealing left heel wound
# History of left popliteal to dorsalis pedis bypass complicated with left inguinal infection/sepsis 05/29/2023
# History of right common iliac and right popliteal stents
Arteriogram 09/08/23- no interventions
#LUE edema - Check USS
# Acute kidney injury, likely IV dye related from arteriogram, resolved
Resumed RECEPTIONIST DOCTOR'S OFFICE Valsartan and lasix
# Chronic pain with narcotic dependence
# Chronic back pain
Patient states that he does not take OxyContin anymore only oxycodone, therefore stopped OxyContin
Oxycodone 5 mg every 4 hours as needed for pain
Cont RECEPTIONIST DOCTOR'S OFFICE gabapentin 300 mg HS and added 100 mg daily
# Coronary disease with history of CABG, complicated by sternal debridement and pectoral flap
Continue Plavix, statin and beta-juan,valsartan
# Chronic heart failure with preserved ejection fraction
Continue Jardiance and beta-juan,valsartan
Lasix
# Persistent atrial fibrillation
# History of cardioversion and ablation in the past
continue beta-juan
Eliquis resumed
# Pacemaker 2020
# Bioprosthetic aortic and mitral valve replacements
# Constipation has resolved
# COPD- not in exacerbation
Continue budesonide/formoterol
# Chronic anemia
Iron studies and B12 sufficient
# Hyperlipidemia-continue Lipitor
# Gout-continue allopurinol
# Prostate disease-continue Flomax
# Insomnia-continue trazodone
# History of vertigo
# History of cervical discectomy for herniated disc
# Psoriasis
# Ex-smoker
#DVT prophylaxis- Eliquis
Dispo: SNF
DW decorating machine operator at bedside
Anticipated Discharge: Within 24 hours
Subjective/Interval History
-
Date of Service: September 19, 2023
Objective Data
-
Labs:
Laboratory Results
09/19/23
12:28
Sodium Pending
Potassium Pending
Chloride Pending
Carbon Dioxide Pending
BUN Pending
Creatinine Pending
Glucose Pending
Calcium Pending
Vital Signs:
Vital Signs
Temp Pulse Resp BP Pulse Ox
97.6 F 87 18 125/76 99
09/19/23 07:28 09/19/23 07:35 09/19/23 07:35 09/19/23 07:28 09/19/23 07:35
I&O
09/18/23 09/19/23 09/20/23
06:59 06:59 06:59
Intake Total 1190 / 1190 480 / 480
Output Total 1300 / 1300 1625 / 1625
Balance -110 / -110 -1145 / -1145
[2023-09-19 13:22] LABS: Blood Urea Nitrogen 23 mg/dl (9-20); Calcium 8.8 mg/dl (8.4-10.2); Carbon Dioxide 25 mmol/L (22-30); Chloride 101 mmol/L (98-107); Estimated Creatinine Clearance 66 ml/min; Glucose 114 mg/dl (70-99); Potassium 4.3 mmol/L (3.5-5.1); Sodium 131 mmol/L (135-145); eGFR > 60.00
--- NOTE | 2023-09-19 13:47 | WOUNDNOTE ---
WON RN NOTE: Patient for discharge to SNF tomorrow. Nurse Overton reports no drainage from L heel wound vac dressing. Confirmed with LIPCOAT SPRAYER Dreger can leave wound vac dressing until removed before discharge tomorrow. Updated nurse Overton that before
discharge wound vac dressing to be removed, saline WTD dressing applied. Machine to be placed in soiled utility rm. Also made RN aware no longer need balbir wrap. Updated discharge instructions.
[2023-09-19 15:29] VITALS: BP 116/51
[2023-09-19] MEDS: TOPROL XL 50 MG PO (17:09)
[2023-09-19] MEDS: ZYRTEC 10 MG PO (17:09)
[2023-09-19] MEDS: JARDIANCE 10 MG PO (17:09)
[2023-09-19] MEDS: NEURONTIN 300 MG PO (17:09)
[2023-09-19] MEDS: ROCEPHIN 2000 MG IV (17:10)
[2023-09-19] MEDS: STERILE WATER FOR INJECTION 20 ML IV (17:10)
[2023-09-19 23:00] VITALS: BP 117/52
[2023-09-20 06:00] VITALS: BMI 20.6
[2023-09-20 07:40] VITALS: BP 133/73
[2023-09-20] MEDS: SYMBICORT 160/4.5 MCG INHALER 2 PUFF INH (07:40)
[2023-09-20] MEDS: ELIQUIS 5 MG PO (08:10)
[2023-09-20] MEDS: LIPITOR 10 MG PO (08:10)
[2023-09-20] MEDS: DIOVAN 20 MG PO (08:10)
[2023-09-20] MEDS: SINGULAIR 10 MG PO (08:10)
[2023-09-20] MEDS: ZYLOPRIM 100 MG PO (08:10)
[2023-09-20] MEDS: PLAVIX 75 MG PO (08:10)
[2023-09-20] MEDS: SENOKOT 17.1999999999999993 MG PO (08:10)
[2023-09-20] MEDS: VITAMIN B-12 1000 MCG PO (08:10)
[2023-09-20] MEDS: FLOMAX 0.400000000000000022 MG PO (08:10)
[2023-09-20] MEDS: MIRALAX 17 GRAMS PO (08:10)
[2023-09-20] MEDS: COLACE 100 MG PO (08:10)
[2023-09-20] MEDS: VITAMIN D3 (cholecalciferol) 25 MCG PO (08:10)
[2023-09-20] MEDS: NEURONTIN 100 MG PO (08:11)
[2023-09-20] MEDS: LASIX 40 MG PO (08:11)
[2023-09-20] MEDS: ROXICODONE 5 MG PO ×3 (08:16→17:15)
--- NOTE | 2023-09-20 10:51 | WOUNDNOTE ---
SACRAL/COCCYX (blanchable red)
--- NOTE | 2023-09-20 10:52 | WOUNDNOTE ---
L FOOT (PROXIMAL DORSAL)
--- NOTE | 2023-09-20 10:52 | WOUNDNOTE ---
L FOOT/ANKLE (ANTERIOR)(with photo flash)
--- NOTE | 2023-09-20 12:16 | WOUNDNOTE ---
L HEEL/PLANTAR FOOT
--- NOTE | 2023-09-20 12:17 | WOUNDNOTE ---
L HEEL (with photo flash)
--- NOTE | 2023-09-20 12:18 | WOUNDNOTE ---
L HEEL (with photo flash)
--- NOTE | 2023-09-20 12:19 | WOUNDNOTE ---
[facility] RN note: Patient's wound vac removed L heel for anticipation of discharge today. Wound clean pink with scattered purple ecchymotic areas. Moderate ss drainage. No active bleeding. L dorsal wound pink with thin appearing christine necrosis. Adaptic,
saline moistened gauze, ABD pad, Spandage applied L heel. L dorsal dressing changed. Heels off bed with pillow with air chair cushions on top. Patient is aware to only toe touch on L during ambulation, no pressure on heel in bed nor during
ambulation. present.
--- NOTE | 2023-09-20 12:41 | WOUNDNOTE ---
[facility] RN note: Clarified L dorsal foot wound care with Ro Wilks Vascular PA (clean with saline, adaptic, silicone border foam daily) and can leave L vac off today and leave adaptic, saline gauze, ABD pad, Spandage L heel if patient transfer to
SNF is delayed till tomorrow. t/c Ultrasound who stated patient can go down to ultrasound now. Updated TRUDY Mann. Rental vac pump placed in soiled utility room.
--- NOTE | 2023-09-20 13:21 | CM ---
Reviewed chart, patient medically cleared for discharge. Spoke with patient's who is still agreeable to plan (Transfer to [facility]) number for report and fax in previous CM note. Placed a call to Sumaya in admissions at who confirmed acceptance for
today. Completed medical necessity form and transfer sheet for community life director. IMM provided.
Plan: Case management will continue to follow and assist with discharge planning. Transfer to [facility]. Per community life director @ 18:00. Patient's updated.
--- NOTE | 2023-09-20 15:16 | W.PN.HOSP.TC ---
Addendum entered and electronically signed by Dulce Corbett MD 09/20/23 15:21:
Acute Osteomyelitis
Original Note:
Today's Communication/Plan
-
Discharge
Assessment / Plan
Assessment / Plan
77-year-old male with left heel ulcer. Visiting nurse recommended admission.
JASON 08/18/2023
Right lower extremity 0.62 consistent with moderate arterial insufficiency improved from prior study 0.50. TBI severely reduced 0.26 stable.
Left lower extremity JASON not performed secondary to lower extremity bypass. TBI moderate to severely reduced 0.37. No stenosis of common femoral through popliteal artery below popliteal more than 75% stenosis?
MRI-enhancement of the posterior inferior aspect of the calcaneus consistent with osteomyelitis in the area of the nonhealing ulcer. No abscess.
CVS: S1-S2 irregular
Chest: CTA B/L
Abdomen: Soft, NT / Bowel sounds present
Extremities: On wet to dry dressing. Clean wound
WEAVING LOOM OPERATOR: Non focal exam
A/P:
# Infected left heel wound- unstageable to stage IV
# Osteomyelitis of the Left calcaneus per MRI and confirmed on pathology
Patient has been followed by [facility] wound care and debrided weekly.
Status post arteriogram 09/08/2023- no vascular interventions needed
Status post L heel debridement of the wound
Superficial wound cultures with Pseudomonas and E. coli.
OR cultures with E. coli.
Pathology confirmed acute osteomyelitis.
IV Merrem -> ceftriaxone 2 gm iv q24 hrs per ID , tentatively for [address]
Vac to be placed at rehab
PT/OT recc SNF
# Acute blood loss anemia, related to OR debridement, dilutional from IVF, and now bleeding from VAC placement
s/p 1 unit PRBC transfusion previously
# Peripheral artery disease, clinically limb-threatening ischemia with nonhealing left heel wound
# History of left popliteal to dorsalis pedis bypass complicated with left inguinal infection/sepsis 05/29/2023
# History of right common iliac and right popliteal stents
Arteriogram 09/08/23- no interventions
#LUE edema - USS No DVT
#Mild Hyponatremia- Continue Lasix and follow labs as OP
# Acute kidney injury, likely IV dye related from arteriogram, resolved
Resumed LOOM SETTER Valsartan and lasix
# Chronic pain with narcotic dependence
# Chronic back pain
Patient states that he does not take OxyContin anymore only oxycodone, therefore stopped OxyContin
Oxycodone 5 mg every 4 hours as needed for pain
Cont LOOM SETTER gabapentin 300 mg HS and added 100 mg daily
# Coronary disease with history of CABG, complicated by sternal debridement and pectoral flap
Continue Plavix, statin and beta-juan,valsartan
# Chronic heart failure with preserved ejection fraction
Continue Jardiance and beta-juan,valsartan
Lasix
# Persistent atrial fibrillation
# History of cardioversion and ablation in the past
continue beta-juan
Eliquis resumed
# Pacemaker 2020
# Bioprosthetic aortic and mitral valve replacements
# Constipation has resolved
# COPD- not in exacerbation
Continue budesonide/formoterol
# Chronic anemia
Iron studies and B12 sufficient
# Hyperlipidemia-continue Lipitor
# Gout-continue allopurinol
# Prostate disease-continue Flomax
# Insomnia-continue trazodone
# History of vertigo
# History of cervical discectomy for herniated disc
# Psoriasis
# Ex-smoker
#DVT prophylaxis- Eliquis
Dispo: SNF
DW RN
D/W Case management
Discharge time 36 min
Anticipated Discharge: Today
Subjective/Interval History
-
Date of Service: September 20, 2023
Objective Data
-
Vital Signs:
Vital Signs
Temp Pulse Resp BP Pulse Ox
97.3 F 75 16 133/73 97
09/20/23 07:40 09/20/23 08:11 09/20/23 07:42 09/20/23 08:11 09/20/23 07:42
I&O
09/19/23 09/20/23 09/21/23
06:59 06:59 06:59
Intake Total 480 / 480 1490 / 1490
Output Total 1625 / 1625 1135 / 1135
Balance -1145 / -1145 355 / 355
--- NOTE | 2023-09-20 15:20 | W.DS.TRANS ---
Addendum entered and electronically signed by Dulce Corbett MD 09/20/23 17:28:
Dictation- [id number]
Original Note:
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
-
Discharge Instructions:
Sleep Apnea Risk Low
Discharge Diagnosis/Procedures Infected left heel wound with Osteomyelitis of
the Left calcaneus status post arteriogram
2023 (no vascular interventions needed) and
status post Left heel debridement of the wound,
anemia, coronary artery disease, acute kidney
injury, chronic pain, coronary disease, CHF with
preserved ejection fraction, persistent atrial
fibrillation, pacemaker, bioprosthetic aortic
and mitral valve, COPD, hyperlipidemia, gout,
prostate disease, insomnia
Diet 2 Gram Sodium,Restrict fluids to 64 oz
Activity As tolerated
Additional Activity toe tap pressure to left foot. Strict heel off
loading otherwise
Driving Restrictions No driving
Blood Work CBC, BMP weekly while on antibiotics. start in 3
-4 days
Other Services PT,OT
Specialty Instructions Weigh Daily
Instructions:
Stand-Alone Forms:
Changes to Home Medications: Yes
Discharge Medications:
DC Medications w/original date entered in [employer]
metoprolol succinate 50 mg tablet,extended release 24 hr 50 mg PO QPM Blood pressure 10/15/21
allopurinol 100 mg tablet 100 mg PO DAILY Gout 03/22/23
atorvastatin 10 mg tablet (Lipitor) 10 mg PO DAILY High Cholesterol 03/22/23
clopidogrel 75 mg tablet (Plavix) 75 mg PO DAILY Blood Clot Prevention/Tx 03/22/23
empagliflozin 10 mg tablet (Jardiance) 10 mg PO QPM Heart Failure 03/22/23
tamsulosin 0.4 mg capsule 0.4 mg PO DAILY Urinary Issue 03/22/23
fluticasone propionate 50 mcg/actuation nasal spray,suspension 1 spray intranasal BID Lung/Breathing Issues 03/28/23
montelukast 10 mg tablet 10 mg PO DAILY Lung/Breathing Issues 03/28/23
budesonide-formoterol HFA 160 mcg-4.5 mcg/actuation aerosol inhaler 2 puff inhalation R BID Lung/Breathing Issues 05/16/23
cetirizine 10 mg tablet (Zyrtec) 10 mg PO QPM Allergies 05/16/23
acetaminophen 325 mg tablet 650 mg PO Q4H PRN mild pain/fever>100 06/06/23
albuterol sulfate 90 mcg/actuation aerosol inhaler 2 puff inhalation R Q4 PRN sob/wheezing 09/05/23
apixaban 5 mg tablet (Eliquis) 5 mg PO BID Blood Clot Prevention/Tx 09/05/23
cholecalciferol (vitamin D3) 25 mcg (1,000 unit) tablet (Vitamin D3) 25 mcg PO DAILY Supplement 09/05/23
furosemide 40 mg tablet 40 mg PO DAILY Fluid Retention/Swelling 09/05/23
gabapentin 300 mg capsule 300 mg PO QPM Pain 09/05/23
potassium chloride 20 mEq tablet,extended release(part/cryst) 20 meq PO DAILY Electrolyte Repletion 09/05/23
trazodone 50 mg tablet 50 mg PO HS PRN sleep 09/05/23
valsartan 40 mg tablet 20 mg PO DAILY Blood Pressure 09/05/23
ceftriaxone 2 gram solution for injection 2,000 mg IV Q24H Infection #0 ea 09/18/23
docusate sodium 100 mg capsule 100 mg PO BID Constipation #0 caps 09/18/23
gabapentin 100 mg capsule 100 mg PO DAILY Pain #0 caps 09/18/23
oxycodone 5 mg tablet 5 mg PO Q4HPRN PRN for moderate to severe #10 tabs 09/18/23
polyethylene glycol 3350 17 gram oral powder packet (HealthyLax) 17 g PO DAILY Constipation #0 ea 09/18/23
sennosides 8.6 mg tablet (Senna Laxative) 17.2 mg PO BID Constipation #0 tabs 09/18/23
Home Medication Changes
new
ceftriaxone 2 gram solution for injection 2,000 mg IV Q24H Infection #0 ea 09/18/23
docusate sodium 100 mg capsule 100 mg PO BID Constipation #0 caps 09/18/23
gabapentin 100 mg capsule 100 mg PO DAILY Pain #0 caps 09/18/23
oxycodone 5 mg tablet 5 mg PO Q4HPRN PRN for moderate to severe #10 tabs 09/18/23
polyethylene glycol 3350 17 gram oral powder packet (HealthyLax) 17 g PO DAILY Constipation #0 ea 09/18/23
sennosides 8.6 mg tablet (Senna Laxative) 17.2 mg PO BID Constipation #0 tabs 09/18/23
Pending Results: No
[2023-09-20 15:30] VITALS: BP 99/45
--- NOTE | 2023-09-20 16:19 | W.PN.ID1 ---
Date of Service
Date of Service: September 20, 2023
Today's Communication
c/w ctx
Assessment / Plan
Osteomyelitis of the L Heel
PAD/CAD
- no significant new labs today
- c/w ceftriaxone 2 gm IV q24 hrs
- PICC line - script on paper chart
- weekly labs while on OPAT
- follow up in clinic in about 6 weeks
Chief Complaint
-: Other (probable osteomyelitis)
Subjective / Review of Systems
afebrile
minimal hypotension today
Vital Signs / Physical Exam
Vital Signs
Vital Signs
Temp Pulse Resp BP Pulse Ox
98 F 67 16 99/45 99
09/20/23 15:30 09/20/23 15:30 09/20/23 15:30 09/20/23 15:30 09/20/23 15:30
Physical Exam
Constitutional: No Acute Distress and Comfortable
Cardiovascular: Regular Rate
Pulmonary: Symmetric and Non Labored
Gastrointestinal: Non Distended
Skin: Dry; Negative Rash or Jaundice
Neurological: Negative Awake
Objective Data
Lab Data
Lab Results
09/18/23 04:41
09/19/23 12:28
Estimated Creat Clear 66 ml/min 09/19/23 12:28
Total Bilirubin 0.6 mg/dl (0.2-1.3) 09/05/23 17:04
AST 37 U/L (17-59) 09/05/23 17:04
ALT 19 U/L (0-50) 09/05/23 17:04
Alkaline Phosphatase 101 U/L (38-126) 09/05/23 17:04
Most recent labs reviewed.
Micro Results:
09/06/23 14:23 Blood Culture - Final
Blood/Venous No Growth - Final Report
09/05/23 17:04 Blood Culture - Final
Blood/Venous No Growth - Final Report
09/08/23 16:30 Tissue Culture - Final
Heel - Left Escherichia coli
Gram Stain - Final
09/06/23 15:15 Wound Culture - Final
Heel - Left Escherichia coli
Pseudomonas aeruginosa
Pseudomonas aeruginosa#2
Gram Stain - Final
[2023-09-20] MEDS: TOPROL XL 50 MG PO (17:15)
[2023-09-20] MEDS: JARDIANCE 10 MG PO (17:15)
[2023-09-20] MEDS: NEURONTIN 300 MG PO (17:15)
[2023-09-20] MEDS: ROCEPHIN 2000 MG IV (17:15)
[2023-09-20] MEDS: ZYRTEC 10 MG PO (17:16)
[2023-09-20] MEDS: STERILE WATER FOR INJECTION 20 ML IV (17:16)
== END 2023-09-20 18:21 | DRG 504 ==
LOC: 3 WEST ACU 20:34
PROVIDERS: Clinical Nurse Specialist Family Health; Internal Medicine; Surgery Vascular Surgery; ADMITTING PHYSICIAN Hospitalist; ATTENDING PHYSICIAN Hospitalist; CONSULT PHYSICIAN Podiatrist; CONSULT PHYSICIAN Student in an Organized Health Care Education/Training Program; EMERGENCY PHYSICIAN Emergency Medicine; FAMILY PHYSICIAN Family Medicine; OTHER PHYSICIAN Nurse Practitioner
PROC: B41G1ZZ Fluoroscopy of Left Lower Extremity Arteries using Low Osmolar Contrast (ICD-10-PCS; 2023-09-08)
PROC: 0QBM0ZZ Excision of Left Tarsal, Open Approach (ICD-10-PCS; 2023-09-08)
PROC: 2W1TX6Z Compression of Left Foot using Pressure Dressing (ICD-10-PCS; 2023-09-08)
PROC: 30233N1 Transfusion of Nonautologous Red Blood Cells into Peripheral Vein, Percutaneous Approach (ICD-10-PCS; 2023-09-15)
DX: M86.172 Other acute osteomyelitis, left ankle and foot (principal); D62 Acute posthemorrhagic anemia; F11.20 Opioid dependence, uncomplicated; I48.19 Other persistent atrial fibrillation; I50.32 Chronic diastolic (congestive) heart failure; N17.9 Acute kidney failure, unspecified; L97.429 Non-pressure chronic ulcer of left heel and midfoot with unspecified severity; B96.20 Unspecified Escherichia coli [E. coli] as the cause of diseases classified elsewhere; B96.5 Pseudomonas (aeruginosa) (mallei) (pseudomallei) as the cause of diseases classified elsewhere; I25.10 Atherosclerotic heart disease of native coronary artery without angina pectoris; G89.29 Other chronic pain; I11.0 Hypertensive heart disease with heart failure; J44.89 Other specified chronic obstructive pulmonary disease; M10.9 Gout, unspecified; I70.244 Atherosclerosis of native arteries of left leg with ulceration of heel and midfoot; Z79.02 Long term (current) use of antithrombotics/antiplatelets; Z87.891 Personal history of nicotine dependence
CPT/HCPCS: 88304; 88311; 11044; 11047; 36246; 71045; 73630; 73723; 75625; 75716; 76937; 80048; 80053; 82607; 82728; 83540; 83550; 83735; 85025; 85027; 86850; 86900; 86901; 86920; 87040; 87070; 87077; 87147; 87176; 87186; 87205; 93971; 94640; 97116; 97162; 97166; 97530; 97535; 99285; A9575; C1894; J2185; P9016; Q9967

== ENCOUNTER → 2023-10-19 12:25 | Outpatient (REF) | payer OTHER, SELFPAY | LOC: WOUND 12:25 | PROVIDERS: ATTENDING PHYSICIAN Surgery | DX: L89.623 Pressure ulcer of left heel, stage 3 (principal); L97.322 Non-pressure chronic ulcer of left ankle with fat layer exposed; I73.9 Peripheral vascular disease, unspecified; I25.10 Atherosclerotic heart disease of native coronary artery without angina pectoris; I34.0 Nonrheumatic mitral (valve) insufficiency; I48.91 Unspecified atrial fibrillation; I48.0 Paroxysmal atrial fibrillation | CPT/HCPCS: 11042; 99203 ==

== ENCOUNTER → 2023-10-23 14:10 | Outpatient (REF) | payer OTHER, SELFPAY | LOC: WOUND 14:10 | PROVIDERS: ATTENDING PHYSICIAN Surgery | DX: L89.623 Pressure ulcer of left heel, stage 3 (principal); L97.322 Non-pressure chronic ulcer of left ankle with fat layer exposed; I73.9 Peripheral vascular disease, unspecified; I25.10 Atherosclerotic heart disease of native coronary artery without angina pectoris; I34.0 Nonrheumatic mitral (valve) insufficiency; I48.91 Unspecified atrial fibrillation; I48.0 Paroxysmal atrial fibrillation | CPT/HCPCS: 11042; 97605 ==

== ENCOUNTER → 2023-10-30 14:42 | Outpatient (REF) | payer OTHER, SELFPAY | LOC: WOUND 14:42 | PROVIDERS: ATTENDING PHYSICIAN Surgery | DX: L89.623 Pressure ulcer of left heel, stage 3 (principal); L97.422 Non-pressure chronic ulcer of left heel and midfoot with fat layer exposed; L97.421 Non-pressure chronic ulcer of left heel and midfoot limited to breakdown of skin; I73.9 Peripheral vascular disease, unspecified; I25.10 Atherosclerotic heart disease of native coronary artery without angina pectoris; I34.0 Nonrheumatic mitral (valve) insufficiency; I48.91 Unspecified atrial fibrillation; I48.0 Paroxysmal atrial fibrillation | CPT/HCPCS: 11042; 99213 ==

== ENCOUNTER → 2023-11-10 14:40 | Outpatient (REF) | payer OTHER, SELFPAY | LOC: WOUND 14:40 | PROVIDERS: ATTENDING PHYSICIAN Surgery | DX: L89.623 Pressure ulcer of left heel, stage 3 (principal); L97.422 Non-pressure chronic ulcer of left heel and midfoot with fat layer exposed; I25.10 Atherosclerotic heart disease of native coronary artery without angina pectoris; L97.421 Non-pressure chronic ulcer of left heel and midfoot limited to breakdown of skin; I34.0 Nonrheumatic mitral (valve) insufficiency; I48.91 Unspecified atrial fibrillation; I48.0 Paroxysmal atrial fibrillation | CPT/HCPCS: 11042; 97605 ==

== ENCOUNTER → 2023-11-20 14:13 | Outpatient (REF) | payer OTHER, SELFPAY | LOC: WOUND 14:13 | PROVIDERS: ATTENDING PHYSICIAN Surgery | DX: L89.623 Pressure ulcer of left heel, stage 3 (principal); L97.422 Non-pressure chronic ulcer of left heel and midfoot with fat layer exposed; L97.421 Non-pressure chronic ulcer of left heel and midfoot limited to breakdown of skin; I73.9 Peripheral vascular disease, unspecified; I25.10 Atherosclerotic heart disease of native coronary artery without angina pectoris; I34.0 Nonrheumatic mitral (valve) insufficiency; I48.91 Unspecified atrial fibrillation; I48.0 Paroxysmal atrial fibrillation | CPT/HCPCS: 11042; 97605 ==

== ENCOUNTER → 2023-11-24 14:49 | Outpatient (REF) | payer OTHER, SELFPAY | LOC: RAD 14:49 | PROVIDERS: ATTENDING PHYSICIAN Surgery Vascular Surgery; FAMILY PHYSICIAN Family Medicine | DX: I73.9 Peripheral vascular disease, unspecified (principal) | CPT/HCPCS: 93922; 93925 ==

== ENCOUNTER → 2023-12-01 15:24 | Outpatient (REF) | payer OTHER, SELFPAY | LOC: WOUND 15:24 | PROVIDERS: ATTENDING PHYSICIAN Surgery | DX: L89.623 Pressure ulcer of left heel, stage 3 (principal); L97.422 Non-pressure chronic ulcer of left heel and midfoot with fat layer exposed; L97.421 Non-pressure chronic ulcer of left heel and midfoot limited to breakdown of skin; I73.9 Peripheral vascular disease, unspecified; I25.10 Atherosclerotic heart disease of native coronary artery without angina pectoris; I34.0 Nonrheumatic mitral (valve) insufficiency; I48.91 Unspecified atrial fibrillation; I48.0 Paroxysmal atrial fibrillation | CPT/HCPCS: 11042 ==

== ENCOUNTER → 2023-12-11 10:24 | Outpatient (REF) | payer OTHER, SELFPAY | LOC: WOUND 10:24 | PROVIDERS: ATTENDING PHYSICIAN Surgery | DX: L89.623 Pressure ulcer of left heel, stage 3 (principal); L97.422 Non-pressure chronic ulcer of left heel and midfoot with fat layer exposed; I73.9 Peripheral vascular disease, unspecified; I25.10 Atherosclerotic heart disease of native coronary artery without angina pectoris; I34.0 Nonrheumatic mitral (valve) insufficiency; I48.91 Unspecified atrial fibrillation; I48.0 Paroxysmal atrial fibrillation | CPT/HCPCS: 99213 ==

== ENCOUNTER 2023-12-12 06:12 | Day surgery (SDC) | payer OTHER, SELFPAY ==
[2023-12-12] VITALS (26 sets, daily range): BP systolic 85–141; BP diastolic 47–114; BMI 19.7
[2023-12-12 07:04] LABS: Hematocrit 26.4 % (39.0-52.0); Mean Corp Hgb Conc. 34.1 g/dL (33.0-37.0); Mean Corpuscular Hgb 31.8 pg (27.0-31.0); Mean Corpuscular Volume 93.3 fL (80.0-94.0); Mean Platelet Volume 10.2 fL (7.4-10.4); Platelet Count 167 10^3/uL (130-400); Red Blood Cell Count 2.83 10^6/uL (4.70-6.10); Red Cell Dist. Width 16.6 % (11.5-14.5); White Blood Cell Count 6.5 10^3/uL (4.8-10.8)
[2023-12-12 07:13] LABS: APTT 34.4 Sec (23.4-35.0); INR 1.25; PT 15.5 Sec (11.4-14.6)
[2023-12-12 07:20] LABS: Blood Urea Nitrogen 47 mg/dl (9-20); Calcium 9.3 mg/dl (8.4-10.2); Carbon Dioxide 26 mmol/L (22-30); Chloride 100 mmol/L (98-107); Estimated Creatinine Clearance 51 ml/min; Glucose 99 mg/dl (70-99); Potassium 4.5 mmol/L (3.5-5.1); Sodium 134 mmol/L (135-145); eGFR > 60.00
--- NOTE | 2023-12-12 09:11 | W.IMMPOSTOP ---
Surgical Immed Post Op Note
-
Primary Surgeon: Dr. Santosh Reynolds III, MD
Assisting Surgeon: Dr. Alphonso Sandoval MD, PhD (PGY-1)
Pre-op Diagnosis: Peripheral arterial disease with unhealing rivera on left foot
Post-op Diagnosis: Peripheral arterial disease with unhealing rivera on left foot
Procedure Performed: Diagnostic arteriogram of left lower extremity (via anterograde approach), intravascular lithotripsy
Anesthesia Type: MAC
Specimen / Cultures: None
Estimated Blood Loss: 2cc
Complications: None
Operative Findings: The patient was brought to the OR and placed in the supine position. Following induction with anesthesia, the patient's bilateral groins were draped and he was draped in usual sterile fashion. C arm was used to identify the
superior and inferior boundaries of the femoral head and these positions were marked on the skin level. Ultrasound guidance was used to identify the left common femoral artery. Local anesthetic was injected into the subcutaneous tissue along the
track of vascular access. Micropuncture needle was used to access the left DEICER FINISHER. This was upsized to a 5 serbian sheath over a [id number] wire. This was exchanged to a quickcross catheter placed in the left SFA. Diagnostic arteriogram showed poor flow
through the previous bypass with an area of focal occlusion distal to the distal bypass anastomosis in the left DP. The area of occlusion was crossed with a wire and intravascular lithotripsy was performed. Following IVL, completion arteriogram
showed improved patency of the previous site of narrowing distal to the distal anastomosis. There was good flow through the SFA to distal AT/proximal DP bypass with good anterior perfusion. The posterior tibial artery was occluded and the posterior
foot was supplied by retrograde collaterals from the anterior aspect. The sheath was exchanged for a 5-serbian sheath. At the conclusion of the case, doppler signals were noted in bilateral DP arteries. The patient was transported to the PACU in
stable condition and the sheath will be removed in the PACU.
[2023-12-12] MEDS: DILAUDID 0.25 MG IV ×3 (09:14→09:42)
--- NOTE | 2023-12-12 15:36 | OR.RPT ---
Operative Report
Operative Report
Date of Operation: 12/12/2023
Pre Op Diagnosis: Threatened left lower extremity bypass with high-grade stenosis at the distal anastomosis
Post Op Diagnosis: Threatened left lower extremity bypass with high-grade stenosis at the distal anastomosis
Procedure:
1.) Intravascular lithotripsy to left dorsalis pedis artery and distal anastomosis of the below-knee popliteal artery to dorsalis pedis artery bypass (2.5 mm S4 Shockwave balloon)
2.) Diagnostic left lower extremity arteriogram
3.) Ultrasound-guided percutaneous ANTEGRADE access to the left common femoral artery
Surgeon: Santosh Reynolds III, MD
Brick Setter Operator: Alphonso Sandoval MD PhD, PGY1
Anesthesia: Sedation with local
Fluoroscopy:
19.4 min
51 mGy
5.53 Gy.cm2
Complications: None
Estimated Blood Loss: Minimal
History and Indications for Procedure: 78-year-old male with threatened left lower extremity bypass on surveillance duplex imaging.
Procedure in Detail: Elliot Haines was correctly identified and placed supine on the operating table. After adequate induction of anesthesia the bilateral groins were prepped and draped in the usual sterile fashion. A timeout was performed with the
nursing and anesthesia staff confirming the patient's identity as well as the nature and laterality of the procedure.
The left common femoral artery was identified under ultrasound guidance. The artery was patent. The superior and inferior aspects of the femoral head were identified with radiographic guidance and marked at the skin level. The proposed puncture site
was infiltrated with local anesthesia. We saved a copy of the ultrasound image to the medical record. Under ultrasound guidance we accessed the left common femoral artery with a micropuncture needle, guided the microwire into the superficial femoral
artery and then and upsized to a 5 Fr sheath over a Bentson wire.
A diagnostic left lower extremity arteriogram was then performed which demonstrated the following:
LEFT LOWER EXTREMITY:
Superficial femoral artery: Patent with brisk flow and no significant stenosis identified
Popliteal artery: Patent stent with no significant stenosis identified.
Bypass: Patent. Sluggish flow. Proximal anastomosis widely patent to the below-knee popliteal artery. Vein conduit patent with no significant stenosis identified. High-grade stenosis consistent with preoperative duplex findings identified at the
distal anastomosis. Significant small vessel disease identified in the dorsalis pedis artery outflow.
ENDOVASCULAR INTERVENTION: Systemic heparin was administered. Exchanged out for a 5 Fr 45 cm sheath over a Storq wire. Selected the bypass under roadmap guidance with Quickcross catheter and glidewire. Bypass was crossed and the catheter positioned
in the distal aspect. An arteriogram was performed under magnification view which clearly identified the stenosis at the distal anastomosis along with the disease in the [place] artery runoff. Under roadmap guidance I then advanced a hydrophilic
tip 0.014 wire across the distal anastomosis and into a distal branch of the dorsalis pedis artery. Due to the heavily calcified nature of the arterial disease and in an effort to modify the calcium to achieve maximum luminal gain with endovascular
intervention I elected to proceed with intravascular lithotripsy. A 2.5 mm x 40 mm Shockwave balloon was placed across the stenosis under roadmap guidance. Alternating rounds of lithotripsy pulse delivery at sub-nominal pressure and angioplasty at
nominal pressure was performed across the stenosis. In between rounds of pulse delivery and angioplasty the balloon was deflated and repositioned under roadmap guidance. All 160 pulses were delivered.
COMPLETION ARTERIOGRAM: Excellent technical result. Widely patent bypass and distal anastomosis with no significant residual stenosis identified. Improved appearance of the dorsalis pedis artery runoff. Significantly improved flow through the
bypass compared to pre-treatment.
Satisfied with this result we concluded the procedure. Protamine was administered. The sheath was exchanged out for a short 5 Portuguese sheath. The sheath was secured in place with the plan to pull it in the recovery room.
The patient tolerated the procedure well and was taken to the recovery area in stable condition.
Attestation: I was present and responsible for the entire procedure.
Signed:
Santosh Reynolds III, MD
[facility]
[phone] ([email or web address])
== END 2023-12-12 14:55 | disposition home or self-care (01) ==
LOC: CATH 06:12
PROVIDERS: ATTENDING PHYSICIAN Surgery Vascular Surgery; FAMILY PHYSICIAN Family Medicine
DX: T82.858D Stenosis of other vascular prosthetic devices, implants and grafts, subsequent encounter (principal); Y83.2 Surgical operation with anastomosis, bypass or graft as the cause of abnormal reaction of the patient, or of later complication, without mention of misadventure at the time of the procedure; I70.344 Atherosclerosis of unspecified type of bypass graft(s) of the left leg with ulceration of heel and midfoot; L97.429 Non-pressure chronic ulcer of left heel and midfoot with unspecified severity; Z87.891 Personal history of nicotine dependence; Z95.820 Peripheral vascular angioplasty status with implants and grafts; Z79.01 Long term (current) use of anticoagulants; Z79.02 Long term (current) use of antithrombotics/antiplatelets; Z79.899 Other long term (current) drug therapy
CPT/HCPCS: C9772; 75710; 76937; 80048; 85027; 85610; 85730; 93005; C1769; C1894; C9764; Q9967

== ENCOUNTER → 2023-12-18 13:14 | Outpatient (REF) | payer OTHER, SELFPAY | LOC: WOUND 13:14 | PROVIDERS: ATTENDING PHYSICIAN Surgery | DX: L89.623 Pressure ulcer of left heel, stage 3 (principal); L97.422 Non-pressure chronic ulcer of left heel and midfoot with fat layer exposed; I73.9 Peripheral vascular disease, unspecified; I25.10 Atherosclerotic heart disease of native coronary artery without angina pectoris; I34.0 Nonrheumatic mitral (valve) insufficiency; I48.91 Unspecified atrial fibrillation; I48.0 Paroxysmal atrial fibrillation | CPT/HCPCS: 97605; 99213 ==

== ENCOUNTER → 2024-01-01 11:58 | Outpatient (REF) | payer OTHER, SELFPAY | LOC: WOUND 11:58 | PROVIDERS: ATTENDING PHYSICIAN Surgery | DX: L89.623 Pressure ulcer of left heel, stage 3 (principal); L97.422 Non-pressure chronic ulcer of left heel and midfoot with fat layer exposed; I73.9 Peripheral vascular disease, unspecified; Z79.01 Long term (current) use of anticoagulants; I25.10 Atherosclerotic heart disease of native coronary artery without angina pectoris; I34.0 Nonrheumatic mitral (valve) insufficiency; I48.91 Unspecified atrial fibrillation; I48.0 Paroxysmal atrial fibrillation | CPT/HCPCS: 99214 ==

== ENCOUNTER → 2024-01-08 13:27 | Outpatient (REF) | payer OTHER, SELFPAY | LOC: WOUND 13:27 | PROVIDERS: ATTENDING PHYSICIAN Surgery | DX: L89.623 Pressure ulcer of left heel, stage 3 (principal); L97.422 Non-pressure chronic ulcer of left heel and midfoot with fat layer exposed; I73.9 Peripheral vascular disease, unspecified; I25.10 Atherosclerotic heart disease of native coronary artery without angina pectoris; I34.0 Nonrheumatic mitral (valve) insufficiency; I48.91 Unspecified atrial fibrillation; I48.0 Paroxysmal atrial fibrillation; Z79.01 Long term (current) use of anticoagulants | CPT/HCPCS: 99213 ==

== ENCOUNTER → 2024-01-10 13:04 | Outpatient (REF) | payer OTHER, SELFPAY | LOC: RAD 13:04 | PROVIDERS: ATTENDING PHYSICIAN Surgery Vascular Surgery; FAMILY PHYSICIAN Family Medicine | DX: I73.9 Peripheral vascular disease, unspecified (principal) | CPT/HCPCS: 93922; 93925 ==

== ENCOUNTER → 2024-01-15 13:17 | Outpatient (REF) | payer OTHER, SELFPAY | LOC: WOUND 13:17 | PROVIDERS: ATTENDING PHYSICIAN Surgery | DX: L89.623 Pressure ulcer of left heel, stage 3 (principal); L97.322 Non-pressure chronic ulcer of left ankle with fat layer exposed; I73.9 Peripheral vascular disease, unspecified; Z79.01 Long term (current) use of anticoagulants; I25.10 Atherosclerotic heart disease of native coronary artery without angina pectoris; I34.0 Nonrheumatic mitral (valve) insufficiency; I48.91 Unspecified atrial fibrillation; I48.0 Paroxysmal atrial fibrillation | CPT/HCPCS: 99213 ==

== ENCOUNTER → 2024-01-29 07:37 | Outpatient (REF) | payer OTHER, SELFPAY | LOC: WOUND 07:37 | PROVIDERS: ATTENDING PHYSICIAN Surgery | DX: L89.623 Pressure ulcer of left heel, stage 3 (principal); L97.322 Non-pressure chronic ulcer of left ankle with fat layer exposed; I73.9 Peripheral vascular disease, unspecified; Z79.01 Long term (current) use of anticoagulants; I25.10 Atherosclerotic heart disease of native coronary artery without angina pectoris; I34.0 Nonrheumatic mitral (valve) insufficiency; I48.91 Unspecified atrial fibrillation; I48.0 Paroxysmal atrial fibrillation | CPT/HCPCS: 99213 ==

== ENCOUNTER → 2024-02-05 13:25 | Outpatient (REF) | payer OTHER, SELFPAY | LOC: WOUND 13:25 | PROVIDERS: ATTENDING PHYSICIAN Surgery | DX: L89.623 Pressure ulcer of left heel, stage 3 (principal); L97.322 Non-pressure chronic ulcer of left ankle with fat layer exposed; I73.9 Peripheral vascular disease, unspecified; Z79.01 Long term (current) use of anticoagulants; I25.10 Atherosclerotic heart disease of native coronary artery without angina pectoris; I34.0 Nonrheumatic mitral (valve) insufficiency; I48.91 Unspecified atrial fibrillation; I48.0 Paroxysmal atrial fibrillation | CPT/HCPCS: 99213 ==

== ENCOUNTER → 2024-02-19 13:15 | Outpatient (REF) | payer OTHER, SELFPAY | LOC: WOUND 13:15 | PROVIDERS: ATTENDING PHYSICIAN Surgery | DX: L89.623 Pressure ulcer of left heel, stage 3 (principal); L97.322 Non-pressure chronic ulcer of left ankle with fat layer exposed; I73.9 Peripheral vascular disease, unspecified; I25.10 Atherosclerotic heart disease of native coronary artery without angina pectoris; I34.0 Nonrheumatic mitral (valve) insufficiency; I48.91 Unspecified atrial fibrillation; I48.0 Paroxysmal atrial fibrillation | CPT/HCPCS: 99213 ==

== ENCOUNTER → 2024-03-04 13:36 | Outpatient (REF) | payer OTHER, SELFPAY | LOC: WOUND 13:36 | PROVIDERS: ATTENDING PHYSICIAN Surgery | DX: L89.623 Pressure ulcer of left heel, stage 3 (principal); L97.322 Non-pressure chronic ulcer of left ankle with fat layer exposed; I73.9 Peripheral vascular disease, unspecified; I25.10 Atherosclerotic heart disease of native coronary artery without angina pectoris; I34.0 Nonrheumatic mitral (valve) insufficiency; I48.91 Unspecified atrial fibrillation; I48.0 Paroxysmal atrial fibrillation; Z79.01 Long term (current) use of anticoagulants | CPT/HCPCS: 99213 ==

== ENCOUNTER → 2024-03-18 14:03 | Outpatient (REF) | payer OTHER, SELFPAY | LOC: WOUND 14:03 | PROVIDERS: ATTENDING PHYSICIAN Surgery; FAMILY PHYSICIAN Family Medicine | DX: L89.623 Pressure ulcer of left heel, stage 3 (principal); L97.322 Non-pressure chronic ulcer of left ankle with fat layer exposed; I73.9 Peripheral vascular disease, unspecified; Z79.01 Long term (current) use of anticoagulants; I25.10 Atherosclerotic heart disease of native coronary artery without angina pectoris; I34.0 Nonrheumatic mitral (valve) insufficiency; I48.91 Unspecified atrial fibrillation; I48.0 Paroxysmal atrial fibrillation | CPT/HCPCS: 99213 ==

== ENCOUNTER → 2024-04-01 12:58 | Outpatient (REF) | payer OTHER, SELFPAY | LOC: WOUND 12:58 | PROVIDERS: ATTENDING PHYSICIAN Surgery | DX: L89.623 Pressure ulcer of left heel, stage 3 (principal); L97.322 Non-pressure chronic ulcer of left ankle with fat layer exposed; I73.9 Peripheral vascular disease, unspecified; I25.10 Atherosclerotic heart disease of native coronary artery without angina pectoris; I34.0 Nonrheumatic mitral (valve) insufficiency; I48.91 Unspecified atrial fibrillation; I48.0 Paroxysmal atrial fibrillation | CPT/HCPCS: 11042 ==

== ENCOUNTER → 2024-04-09 14:17 | Outpatient (REF) | payer OTHER, SELFPAY | LOC: RAD 14:17 | PROVIDERS: ATTENDING PHYSICIAN Physician Assistant; FAMILY PHYSICIAN Family Medicine | DX: I73.9 Peripheral vascular disease, unspecified (principal) | CPT/HCPCS: 93922; 93925 ==

== ENCOUNTER → 2024-04-15 14:06 | Outpatient (REF) | payer OTHER, SELFPAY | LOC: WOUND 14:06 | PROVIDERS: ATTENDING PHYSICIAN Surgery | DX: L89.623 Pressure ulcer of left heel, stage 3 (principal); L97.322 Non-pressure chronic ulcer of left ankle with fat layer exposed; I73.9 Peripheral vascular disease, unspecified; Z79.01 Long term (current) use of anticoagulants; I25.10 Atherosclerotic heart disease of native coronary artery without angina pectoris; I34.0 Nonrheumatic mitral (valve) insufficiency; I48.91 Unspecified atrial fibrillation; I48.0 Paroxysmal atrial fibrillation | CPT/HCPCS: 99213 ==

== ENCOUNTER 2024-04-26 17:00 | Inpatient (IN) | payer OTHER, SELFPAY ==
[2024-04-26] VITALS (38 sets, daily range): BP systolic 12–141; BP diastolic 50–104; BMI 20.2
[2024-04-26 09:03] LABS: Hematocrit 28.8 % (39.0-52.0); Hemoglobin 9.6 g/dL (13.0-18.0); Mean Corp Hgb Conc. 33.3 g/dL (33.0-37.0); Mean Corpuscular Hgb 31.8 pg (27.0-31.0); Mean Corpuscular Volume 95.4 fL (80.0-94.0); Mean Platelet Volume 9.4 fL (7.4-10.4); Platelet Count 148 10^3/uL (130-400); Red Blood Cell Count 3.02 10^6/uL (4.70-6.10); Red Cell Dist. Width 19.4 % (11.5-14.5); White Blood Cell Count 7.1 10^3/uL (4.8-10.8)
[2024-04-26 09:13] LABS: INR 1.29; PT 15.9 Sec (11.4-14.6)
[2024-04-26 09:14] LABS: APTT 33.8 Sec (23.4-35.0)
[2024-04-26 09:20] LABS: Blood Urea Nitrogen 59 mg/dl (9-20); Calcium 9.1 mg/dl (8.4-10.2); Carbon Dioxide 25 mmol/L (22-30); Chloride 99 mmol/L (98-107); Estimated Creatinine Clearance 35 ml/min; Glucose 92 mg/dl (70-99); Potassium 4.5 mmol/L (3.5-5.1); Sodium 137 mmol/L (135-145); eGFR 43.56
--- NOTE | 2024-04-26 15:57 | OR.RPT ---
Operative Report
Operative Report
Date of Operation: 04/26/2024
Pre Op Diagnosis: Threatened left lower extremity bypass
Post Op Diagnosis: Threatened left lower extremity bypass
Procedure:
1.) Intravascular lithotripsy to left distal anterior tibial artery/dorsalis pedis artery (3 mm x 40 mm S4)
2.) Drug-eluting coronary stent placement to distal aspect of below-knee popliteal to dorsalis pedis artery bypass (3.5 mm x 38 mm Sadiq [place]; post-dilated with 3.5 mm x 20 mm noncompliant balloon)
3.) Balloon angioplasty of left below-knee popliteal artery to dorsalis pedis artery bypass
4.) Ultrasound-guided percutaneous ANTEGRADE access to the left common femoral artery
5.) Diagnostic left lower extremity arteriogram
Surgeon: Santosh Reynolds III, MD
Stationary Engineer: Kelly Armstrong MD PGY-8
Anesthesia: Sedation with local
Fluoroscopy:
28.4 min
82 mGy
8.7 to Gy.cm2
Complications: None
Estimated Blood Loss: Less than 20 cc
History and Indications for Procedure: 78-year-old male with threatened left lower extremity below-knee popliteal artery to dorsalis pedis artery bypass on surveillance imaging
Procedure in Detail: Elliot Haines was correctly identified and placed supine on the operating table. After adequate induction of anesthesia the bilateral groins were prepped and draped in the usual sterile fashion. A timeout was performed with the
nursing and anesthesia staff confirming the patient's identity as well as the nature and laterality of the procedure.
The left common femoral artery was identified under ultrasound guidance. The artery was patent. The superior and inferior aspects of the femoral head were identified with radiographic guidance and marked at the skin level. The proposed puncture site
was infiltrated with local anesthesia. Under ultrasound guidance we accessed the left common femoral artery with a micropuncture needle in an antegrade direction, navigated the wire into the superficial femoral artery and then upsized to a 5 Fr
sheath over a [place] wire. The wire and Quickcross catheter were advanced into the popliteal artery and a left lower extremity arteriogram was performed
The below-knee popliteal artery was patent. The proximal bypass anastomosis was widely patent. There was some contrast flow into the proximal bypass but no significant contrast flow was seen distally. Heavily calcified but patent tibial arteries
were demonstrated in the proximal calf
ENDOVASCULAR INTERVENTION: Systemic heparin was administered. Selected the bypass under roadmap guidance with Quickcross catheter and glidewire. The bypass was crossed with the wire and catheter to the ankle. An additional subtraction arteriogram
was performed demonstrating high-grade stenosis in the distal portion of the bypass and in the [place] dorsalis pedis artery.. Under roadmap guidance a 0.014 wire was navigated across the anastomosis and advanced into a distal branch into the
forefoot. Due to the heavily calcified nature of the arterial disease and in an effort to modify the calcium to achieve maximum luminal gain with endovascular intervention I elected to proceed with intravascular lithotripsy. A 3 mm x 40 mm S4
shockwave balloon was placed across the stenosis under roadmap guidance. Alternating rounds of lithotripsy pulse delivery at sub-nominal pressure and angioplasty at nominal pressure was performed across the stenosis. In between rounds of pulse
delivery and angioplasty the balloon was deflated and repositioned under roadmap guidance. All 160 pulses were delivered.
Following this I performed an arteriogram which demonstrated an improved result of the [place] dorsalis pedis artery and outflow but continued residual stenosis in the distal vein graft. A 3.5 mm x 80 mm angioplasty balloon was then used to balloon
profile the entire length of the vein graft from the distal anastomosis to the proximal anastomosis. There was a segment of recalcitrant stenosis identified as the bypass crossed anterior to the tibia at the ankle. This segment did not resolve
despite high-pressure inflation with a 3.5 mm angioplasty balloon with a prolonged inflation time. I therefore brought into position a 3.5 mm x 38 mm [place] frontier drug-eluting coronary stent. This was deployed in the desired location across this
distal vein graft stenosis. A 3.5 mm x 20 mm noncompliant balloon was then used to profile the entire length of the stent at burst pressure. No residual waist was identified. A 3 mm x 40 mm angioplasty balloon was then used to profile the distal
vein graft beyond the stent into the anastomosis.
COMPLETION ARTERIOGRAM: Excellent technical result. Patent bypass. Significantly improved flow through the bypass compared to pretreatment. Widely patent distal stent with no residual stenosis identified. Widely patent distal anastomosis.
Significant small vessel disease in the foot was identified which was known from previous arteriograms. The superficial femoral artery and popliteal artery were also imaged and were both widely patent with good flow and no significant stenosis
identified.
Satisfied with this result we concluded the procedure. Wire was pulled from the 5 [place] sheath. Protamine was administered. The sheath was secured in place with the plan to pull it in the recovery room.
The patient tolerated the procedure well and was taken to the recovery area in stable condition.
Attestation: I was present and responsible for the entire procedure.
Signed:
Santosh Reynolds III, MD
[facility]
[phone] (llyt)
--- NOTE | 2024-04-26 16:57 | CM ---
Chart reviewed. Patient is independent of ADLS, lives with his in a 2 [address], stair lift, plank entrance, ambulates with a SPC. Patient is current with [facility]. Plan is to be discharged with VN.
--- NOTE | 2024-04-26 17:23 | PTCARENOTE ---
received pt from PACU. pt oriented to room. spoke w/ to update on room and that she could come and visit. pt educated on plan of care and pt verbalized understanding. pt educated on importance of laying flat. pt is v paced on the monitor, hr in
the 70s, vss. pt c/o left foot pain, denies wanting pain medication for now. pts left groin is cdi. pp palpable. call hallman within reach.
[2024-04-26] MEDS: LIPITOR 10 MG PO (18:32)
[2024-04-26] MEDS: TOPROL XL 50 MG PO (18:32)
[2024-04-26] MEDS: FLOMAX 0.4 MG PO (18:32)
[2024-04-26] MEDS: SINGULAIR 10 MG PO (18:40)
[2024-04-26] MEDS: ZYRTEC 10 MG PO (18:40)
[2024-04-26] MEDS: SYMBICORT 80/4.5 MCG INHALER 2 PUFF INH (20:01)
[2024-04-26] MEDS: DEMADEX 80 MG PO (20:18)
[2024-04-26] MEDS: SENOKOT 17.2 MG PO (20:18)
[2024-04-26] MEDS: ROXICODONE 5 MG PO (21:46)
--- NOTE | 2024-04-26 22:08 | PTCARENOTE ---
Received patient at change of shift. Patient awake, alert, and oriented in bed. bedside. Patient's right groin site clean, dry, and intact. Soft with no hematoma or ecchymosis. Extremity is pink, warm, with a <2 capillary refill. Normal
sensation and extremity movement. Pedal pulse present, but weak. Discussed bedrest until 2134. Patient verbalized understanding. BP 110/63, V-paced with underlying A-Fib (68-72), 94% on room air. Discussed plan of care for the remainder of the
night. Patient verbalized understanding. Call hallman within reach.
--- NOTE | 2024-04-26 23:03 | PTCARENOTE ---
Patient ambulated to bathroom with the rolling walker. Steady on his feet. Left groin site clean, dry, and intact. Left heel pain improved after PRN oxy given. Patient made comfortable in bed and agreed to use call hallman overnight for assistance.
Call hallman within reach.
[2024-04-27 04:04] VITALS: BP 114/60
[2024-04-27 04:50] LABS: Hematocrit 26.5 % (39.0-52.0); Hemoglobin 9.1 g/dL (13.0-18.0); Mean Corp Hgb Conc. 34.3 g/dL (33.0-37.0); Mean Corpuscular Hgb 33.1 pg (27.0-31.0); Mean Corpuscular Volume 96.4 fL (80.0-94.0); Mean Platelet Volume 10.5 fL (7.4-10.4); Platelet Count 132 10^3/uL (130-400); Red Blood Cell Count 2.75 10^6/uL (4.70-6.10); Red Cell Dist. Width 18.7 % (11.5-14.5); White Blood Cell Count 5.8 10^3/uL (4.8-10.8)
[2024-04-27 05:20] LABS: Blood Urea Nitrogen 50 mg/dl (9-20); Calcium 8.5 mg/dl (8.4-10.2); Carbon Dioxide 25 mmol/L (22-30); Chloride 101 mmol/L (98-107); Estimated Creatinine Clearance 40 ml/min; Glucose 102 mg/dl (70-99); Potassium 3.8 mmol/L (3.5-5.1); Sodium 137 mmol/L (135-145); eGFR 51.13
[2024-04-27] MEDS: SYMBICORT 80/4.5 MCG INHALER 2 PUFF INH (07:55)
--- NOTE | 2024-04-27 08:06 | W.PN.VS ---
Today's Communication / Plan
-
See below.
Assessment/Plan
-
Assessment: 78 year old male POD#1 IVL to distal anterior tibial artery/dorsalis pedis artery (3 mm x 40 mm S4), Drug-eluting coronary stent placement to distal aspect of below-knee popliteal to dorsalis pedis artery bypass (3.5 mm x 38 mm Sadiq
S[place]; post-dilated with 3.5 mm x 20 mm noncompliant balloon), Balloon angioplasty of left below-knee popliteal artery to dorsalis pedis artery bypass, Ultrasound-guided percutaneous ANTEGRADE access to the left common femoral artery, Diagnostic
left lower extremity arteriogram
Plan:
Discharge home today
Subjective Data
-
Date of Service: April 27, 2024
Patient seen and examined at bedside, offers no complaints. Denies nausea, vomiting, fever, chills, pain at puncture site, or swelling.
Objective Data
-
Vital Signs
Temp Pulse Resp BP Pulse Ox
97.4 F 70 14 114/60 95
04/27/24 04:40 04/27/24 07:59 04/27/24 07:59 04/27/24 04:04 04/27/24 07:59
Intake and Output
04/26/24 04/27/24 04/28/24
06:59 06:59 06:59
Intake Total 847 / 847
Output Total 850 / 850
Balance -3 / -3
Intake:
Oral fluids 250 / 250
IV fluids (Total) 597 / 597
Normal Saline 400 / 400
Output:
Urine, Voided 850 / 850
Other:
Number of approximated MODERATE 1
amounts of urine
Lab Results
04/27/24 04:00
04/27/24 04:00
Calcium 8.5 mg/dl (8.4-10.2) 04/27/24 04:00
Physical Exam
-
NAD
Alert/oriented
Non labored breathing
left puncture site, CDI no evidence of hematoma or edema
left DP pulse by doppler
left foot warm
[2024-04-27 08:25] VITALS: BP 101/66
--- NOTE | 2024-04-27 09:14 | W.DS.TRANS ---
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
-
Discharge Instructions:
Sleep Apnea Risk Low
Discharge Diagnosis/Procedures Drug-eluting stent placement to distal aspect of
below-knee popliteal to dorsalis pedis artery
bypass
Diet As tolerated
Activity No strenuous activity
Driving Restrictions No driving for 24 hours
Bathing Restrictions OK to Shower
Others Tests Your follow up arterial ultrasound is scheduled
for 06/07/2024 at 11am here at [facility]
Instructions:
Stand-Alone Forms: DC Instr - Vascular OR
Changes to Home Medications: No
Discharge Medications:
DC Medications w/original date entered in [employer]
metoprolol succinate 50 mg tablet,extended release 24 hr 50 mg PO QPM Blood pressure 10/15/21
allopurinol 100 mg tablet 100 mg PO DAILY Gout 03/22/23
atorvastatin 10 mg tablet (Lipitor) 10 mg PO QPM High Cholesterol 03/22/23
clopidogrel 75 mg tablet (Plavix) 75 mg PO DAILY Blood Clot Prevention/Tx 03/22/23
empagliflozin 10 mg tablet (Jardiance) 10 mg PO DAILY Heart Failure 03/22/23
tamsulosin 0.4 mg capsule 0.4 mg PO QPM Urinary Issue 03/22/23
fluticasone propionate 50 mcg/actuation nasal spray,suspension 1 spray intranasal BID PRN congestion 03/28/23
montelukast 10 mg tablet 10 mg PO QPM Lung/Breathing Issues 03/28/23
cetirizine 10 mg tablet (Zyrtec) 10 mg PO QPM Allergies 05/16/23
acetaminophen 325 mg tablet 650 mg PO Q4H PRN mild pain/fever>100 06/06/23
albuterol sulfate 90 mcg/actuation aerosol inhaler 2 puff inhalation R Q4 PRN sob/wheezing 09/05/23
cholecalciferol (vitamin D3) 25 mcg (1,000 unit) tablet (Vitamin D3) 25 mcg PO DAILY Supplement 09/05/23
sennosides 8.6 mg tablet (Senna Laxative) 17.2 mg (2 x 8.6 mg) PO BID Constipation #0 tabs 09/18/23
oxycodone 5 mg tablet 5 - 10 mg PO Q6HPRN PRN for moderate to severe 12/12/23
apixaban 5 mg tablet (Eliquis) 5 mg PO BID 04/23/24
budesonide-formoterol HFA 80 mcg-4.5 mcg/actuation aerosol inhaler (Symbicort) 2 puff inhalation BID 04/23/24
potassium chloride 20 mEq tablet,extended release 20 meq PO DAILY 04/23/24
torsemide 20 mg tablet 80 mg PO BID 04/23/24
amoxicillin 500 mg capsule 2,000 mg PO PRN PRN prior to dentist 04/26/24
furosemide 40 mg tablet 40 mg PO BID 04/26/24
lorazepam 0.5 mg tablet 0.5 mg PO HS PRN bedtime 04/26/24
triamcinolone acetonide 0.1 % topical cream 1 applic topical BID PRN as needed 04/26/24
Home Medication Changes
Pending Results: No
[2024-04-27] MEDS: DEMADEX 80 MG PO (09:16)
[2024-04-27] MEDS: ELIQUIS 5 MG PO (09:16)
[2024-04-27] MEDS: PLAVIX 75 MG PO (09:16)
[2024-04-27] MEDS: LASIX 40 MG PO (09:16)
[2024-04-27] MEDS: VITAMIN D3 (cholecalciferol) 25 MCG PO (09:16)
[2024-04-27] MEDS: ZYLOPRIM 100 MG PO (09:16)
[2024-04-27] MEDS: KCL 20 MEQ PO (09:16)
[2024-04-27] MEDS: SENOKOT 17.2 MG PO (09:17)
[2024-04-27] MEDS: FARXIGA 10 MG PO (09:17)
[2024-04-27 11:18] VITALS: BP 102/63
== END 2024-04-27 13:11 | disposition home health service (06) | DRG 279 ==
LOC: EICU 17:00
PROVIDERS: Nurse Practitioner; ADMITTING PHYSICIAN Surgery Vascular Surgery; FAMILY PHYSICIAN Family Medicine
PROC: 047 Lower Arteries, Dilation (ICD-10-PCS; 2024-04-26)
PROC: 04FQ3ZZ Fragmentation of Left Anterior Tibial Artery, Percutaneous Approach (ICD-10-PCS; 2024-04-26)
DX: I70.244 Atherosclerosis of native arteries of left leg with ulceration of heel and midfoot (principal); L97.429 Non-pressure chronic ulcer of left heel and midfoot with unspecified severity; I70.444 Atherosclerosis of autologous vein bypass graft(s) of the left leg with ulceration of heel and midfoot; J45.909 Unspecified asthma, uncomplicated; I25.10 Atherosclerotic heart disease of native coronary artery without angina pectoris; I10 Essential (primary) hypertension; I48.91 Unspecified atrial fibrillation; E78.00 Pure hypercholesterolemia, unspecified; Z95.5 Presence of coronary angioplasty implant and graft; Z95.2 Presence of prosthetic heart valve; Z79.01 Long term (current) use of anticoagulants; Z79.02 Long term (current) use of antithrombotics/antiplatelets; Z79.899 Other long term (current) drug therapy; Z79.51 Long term (current) use of inhaled steroids; Z87.891 Personal history of nicotine dependence; Z88.7 Allergy status to serum and vaccine; Z82.49 Family history of ischemic heart disease and other diseases of the circulatory system
CPT/HCPCS: 37226; 75710; 80048; 85027; 85610; 85730; 87070; 87147; 94640; C1725; C1769; C1874; C1894; C9772; Q9967

== ENCOUNTER → 2024-04-29 13:11 | Outpatient (REF) | payer OTHER, SELFPAY | LOC: WOUND 13:11 | PROVIDERS: ATTENDING PHYSICIAN Surgery | DX: L89.623 Pressure ulcer of left heel, stage 3 (principal); L97.322 Non-pressure chronic ulcer of left ankle with fat layer exposed; I73.9 Peripheral vascular disease, unspecified; Z79.01 Long term (current) use of anticoagulants; I25.10 Atherosclerotic heart disease of native coronary artery without angina pectoris; I34.0 Nonrheumatic mitral (valve) insufficiency; I48.91 Unspecified atrial fibrillation; I48.0 Paroxysmal atrial fibrillation | CPT/HCPCS: 99213 ==

== ENCOUNTER → 2024-05-13 14:31 | Outpatient (REF) | payer OTHER, SELFPAY | LOC: WOUND 14:31 | PROVIDERS: ATTENDING PHYSICIAN Surgery | DX: L89.623 Pressure ulcer of left heel, stage 3 (principal); L97.322 Non-pressure chronic ulcer of left ankle with fat layer exposed; I73.9 Peripheral vascular disease, unspecified; I25.10 Atherosclerotic heart disease of native coronary artery without angina pectoris; I34.0 Nonrheumatic mitral (valve) insufficiency; I48.91 Unspecified atrial fibrillation; I48.0 Paroxysmal atrial fibrillation | CPT/HCPCS: 99213 ==

== ENCOUNTER → 2024-05-20 13:31 | Outpatient (REF) | payer OTHER, SELFPAY | LOC: WOUND 13:31 | PROVIDERS: ATTENDING PHYSICIAN Surgery | DX: L89.623 Pressure ulcer of left heel, stage 3 (principal); L97.322 Non-pressure chronic ulcer of left ankle with fat layer exposed; I73.9 Peripheral vascular disease, unspecified; Z79.01 Long term (current) use of anticoagulants; I25.10 Atherosclerotic heart disease of native coronary artery without angina pectoris; I34.0 Nonrheumatic mitral (valve) insufficiency; I48.0 Paroxysmal atrial fibrillation | CPT/HCPCS: 99213 ==

== ENCOUNTER → 2024-06-11 12:59 | Outpatient (REF) | payer OTHER, SELFPAY | LOC: WOUND 12:59 | PROVIDERS: ATTENDING PHYSICIAN Surgery | DX: L89.623 Pressure ulcer of left heel, stage 3 (principal); L97.322 Non-pressure chronic ulcer of left ankle with fat layer exposed; I73.9 Peripheral vascular disease, unspecified; I25.10 Atherosclerotic heart disease of native coronary artery without angina pectoris; I34.0 Nonrheumatic mitral (valve) insufficiency; I48.91 Unspecified atrial fibrillation; I48.0 Paroxysmal atrial fibrillation | CPT/HCPCS: 99212 ==

== ENCOUNTER → 2024-06-13 10:51 | Outpatient (REF) | payer OTHER, SELFPAY | LOC: RAD 10:51 | PROVIDERS: ATTENDING PHYSICIAN Surgery Vascular Surgery; FAMILY PHYSICIAN Family Medicine | DX: I73.9 Peripheral vascular disease, unspecified (principal) | CPT/HCPCS: 93922; 93925 ==

== ENCOUNTER → 2024-09-09 14:09 | Outpatient (REF) | payer OTHER, SELFPAY | LOC: WOUND 14:09 | PROVIDERS: ATTENDING PHYSICIAN Surgery | DX: L89.611 Pressure ulcer of right heel, stage 1 (principal); I73.9 Peripheral vascular disease, unspecified; I25.10 Atherosclerotic heart disease of native coronary artery without angina pectoris; I34.0 Nonrheumatic mitral (valve) insufficiency; I48.91 Unspecified atrial fibrillation; I48.0 Paroxysmal atrial fibrillation; Z79.01 Long term (current) use of anticoagulants | CPT/HCPCS: 99213 ==

== ENCOUNTER → 2024-09-16 13:12 | Outpatient (REF) | payer OTHER, SELFPAY | LOC: WOUND 13:12 | PROVIDERS: ATTENDING PHYSICIAN Surgery | DX: L89.623 Pressure ulcer of left heel, stage 3 (principal); I73.9 Peripheral vascular disease, unspecified; I25.10 Atherosclerotic heart disease of native coronary artery without angina pectoris; I34.0 Nonrheumatic mitral (valve) insufficiency; I48.91 Unspecified atrial fibrillation; I48.0 Paroxysmal atrial fibrillation | CPT/HCPCS: 99213 ==

== ENCOUNTER → 2024-09-24 13:00 | Outpatient (REF) | payer OTHER, SELFPAY | LOC: WOUND 13:00 | PROVIDERS: ATTENDING PHYSICIAN Surgery | DX: L89.623 Pressure ulcer of left heel, stage 3 (principal); Z79.01 Long term (current) use of anticoagulants; I25.10 Atherosclerotic heart disease of native coronary artery without angina pectoris; I34.0 Nonrheumatic mitral (valve) insufficiency; I48.91 Unspecified atrial fibrillation; I48.0 Paroxysmal atrial fibrillation; I73.9 Peripheral vascular disease, unspecified | CPT/HCPCS: 99213 ==

== ENCOUNTER → 2024-10-08 13:12 | Outpatient (REF) | payer OTHER, SELFPAY | LOC: WOUND 13:12 | PROVIDERS: ATTENDING PHYSICIAN Surgery | DX: L89.623 Pressure ulcer of left heel, stage 3 (principal); I73.9 Peripheral vascular disease, unspecified; I25.10 Atherosclerotic heart disease of native coronary artery without angina pectoris; I34.0 Nonrheumatic mitral (valve) insufficiency; I48.91 Unspecified atrial fibrillation; I48.0 Paroxysmal atrial fibrillation; Z79.01 Long term (current) use of anticoagulants | CPT/HCPCS: 99203 ==

== ENCOUNTER → 2024-10-24 13:42 | Outpatient (REF) | payer OTHER, SELFPAY | LOC: WOUND 13:42 | PROVIDERS: ATTENDING PHYSICIAN Surgery | DX: L89.623 Pressure ulcer of left heel, stage 3 (principal); I73.9 Peripheral vascular disease, unspecified; I25.10 Atherosclerotic heart disease of native coronary artery without angina pectoris; I34.0 Nonrheumatic mitral (valve) insufficiency; I48.91 Unspecified atrial fibrillation; I48.0 Paroxysmal atrial fibrillation; Z79.01 Long term (current) use of anticoagulants | CPT/HCPCS: 99213 ==

== ENCOUNTER → 2024-11-07 13:36 | Outpatient (REF) | payer OTHER, SELFPAY | LOC: WOUND 13:36 | PROVIDERS: ATTENDING PHYSICIAN Surgery | DX: L89.623 Pressure ulcer of left heel, stage 3 (principal); R00.1 Bradycardia, unspecified; R06.02 Shortness of breath; I73.9 Peripheral vascular disease, unspecified; I25.10 Atherosclerotic heart disease of native coronary artery without angina pectoris; I34.0 Nonrheumatic mitral (valve) insufficiency; I48.91 Unspecified atrial fibrillation; I48.0 Paroxysmal atrial fibrillation; Z79.01 Long term (current) use of anticoagulants | CPT/HCPCS: 99215 ==

== ENCOUNTER 2024-11-07 14:04 | Emergency (ER) | payer OTHER, SELFPAY ==
[2024-11-07 14:06] VITALS: BP 94/40
[2024-11-07 14:33] LABS: % Basophils 0.6 % (0-2); % Eosinophils 3.9 % (0-6); % Immature Granulocytes 0.5 % (0-0.5); % Lymphocytes 15.3 % (20.5-51.1); % Monocytes 9.4 % (1.7-9.3); % Neutrophils 70.3 % (42.2-75.2); Absolute Eosinophils 0.3 10^3/uL (0-0.7); Absolute Monocytes 0.6 10^3/uL (0.1-0.6); Absolute Neutrophils 4.5 10^3/uL (1.4-6.5); Hematocrit 28.3 % (39.0-52.0); Hemoglobin 9.4 g/dL (13.0-18.0); Mean Corp Hgb Conc. 33.2 g/dL (33.0-37.0); Mean Corpuscular Hgb 34.2 pg (27.0-31.0); Mean Corpuscular Volume 102.9 fL (80.0-94.0); Mean Platelet Volume 9.6 fL (7.4-10.4); Nucleated Red Blood Cells % 0 % (-); Platelet Count 175 10^3/uL (130-400); Red Blood Cell Count 2.75 10^6/uL (4.70-6.10); Red Cell Dist. Width 20.5 % (11.5-14.5); White Blood Cell Count 6.4 10^3/uL (4.8-10.8)
[2024-11-07 14:44] LABS: ALT (SGPT) 24 U/L (0-50); AST (SGOT) 38 U/L (17-59); Albumin 3.8 g/dl (3.5-5.0); Alkaline Phosphatase 97 U/L (38-126); Blood Urea Nitrogen 94 mg/dl (9-20); Calcium 8.8 mg/dl (8.4-10.2); Carbon Dioxide 21 mmol/L (22-30); Chloride 103 mmol/L (98-107); Glucose 98 mg/dl (70-99); Sodium 138 mmol/L (135-145); Total Bilirubin 0.7 mg/dl (0.2-1.3); Total Protein 6.7 g/dl (6.3-8.2); eGFR 31.23
[2024-11-07 14:47] VITALS: BMI 20.1
[2024-11-07 14:56] LABS: % Basophils 0.6 % (0-2); % Eosinophils 4.6 % (0-6); % Immature Granulocytes 0.4 % (0-0.5); % Lymphocytes 12.6 % (20.5-51.1); % Neutrophils 73.8 % (42.2-75.2); Absolute Eosinophils 0.3 10^3/uL (0-0.7); Absolute Lymphocytes 0.9 10^3/uL (1.2-3.4); Absolute Monocytes 0.5 10^3/uL (0.1-0.6); Hematocrit 28.7 % (39.0-52.0); Hemoglobin 9.4 g/dL (13.0-18.0); Mean Corp Hgb Conc. 32.8 g/dL (33.0-37.0); Mean Corpuscular Hgb 34.2 pg (27.0-31.0); Mean Corpuscular Volume 104.4 fL (80.0-94.0); Mean Platelet Volume 9.3 fL (7.4-10.4); Nucleated Red Blood Cells % 0 % (-); Platelet Count 177 10^3/uL (130-400); Red Blood Cell Count 2.75 10^6/uL (4.70-6.10); Red Cell Dist. Width 20.6 % (11.5-14.5); White Blood Cell Count 6.8 10^3/uL (4.8-10.8)
[2024-11-07 15:00] VITALS: BP 84/55
--- NOTE | 2024-11-07 15:04 | ED.GENMED ---
History of Present Illness
General
Chief Complaint: Blood Pressure Problem
Source: patient and spouse
Time Seen by Provider: 11/07/24 14:53
History of Present Illness
History of Present Illness:
79-year-old male presents to the emergency room after being instructed to come here from wound care. Patient was observed to have a relatively low blood pressure and heart rate while at wound care. He feels perhaps somewhat more short of breath
than normal. Patient has a extensive cardiac history and has advanced heart failure. He is followed at [facility]. 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
He is being evaluated for a tricuspid valve replacement. He was recently seen at [facility] to start the workup for this. He had a right heart cath unclear the results. Patient is prescribed diuretics for his heart failure and when his weight goes up
a certain amount he is instructed to take metolazone. He did take metolazone yesterday and had significant diuresis. His weight is back down today. He denies any chest pain. He feels maybe more short of breath than baseline but not
significantly. When asked if the patient would feel the need to come to the emergency room today other than being told to come by the wound care doctor he said he would not feel the need to come.
Past History
Past History
ED Past Medical History: Arrthythmia, Asthma, CAD, HTN, Hypercholesterolemia, Valvular disease and Other (pacer)
ED Past Surgical History: Cardiac
Social History
Personal:
Living: with family
Phy Exam
Physical Exam
Physical Exam:
General: Awake, Alert, Oriented X3. No acute distress, appears chronically ill and quite thin
Vitals: unremarkable
Head: Atraumatic
Eyes: Pupils equal, EOMI
Throat: Airway intact, no exudates
Neck: Trachea midline
Lungs: Few crackles bilateral bases
Heart: Regular rate, 2/6 murmurs
Abd: Soft, Nontender, No pulsatile mass
Neuro: Nonfocal
Skin: Warm, dry, no rash
Extremities: pulses equal b/l, trace edema
Course
Orders/Labs/Results
Orders:
Orders
11/07/24 14:09
EKG [Electrocardiogram (*1)] Urgent
Reason for Study: Bradycardia / Tachycardia
EKG- Treatment ONCE
11/07/24 14:22
Complete Blood Count/With Diff Urgent
Comprehensive Metabolic Panel Urgent
11/07/24 14:50
Complete Blood Count/With Diff Urgent
Comprehensive Metabolic Panel Urgent
Pro-BNP [NT-proBNP] Urgent
11/07/24 15:03
Interrogate Pacemaker- Treatment ONCE
CR Chest - 2 Views Urgent
Comment:
Reason For Exam: shortness of breath
Abnormal Lab Results
11/07/24 11/07/24
14:22 14:50
RBC 2.75 L 10^6/uL 2.75 L 10^6/uL
(4.70-6.10) (4.70-6.10)
Hgb 9.4 L g/dL 9.4 L g/dL
(13.0-18.0) (13.0-18.0)
Hct 28.3 L % 28.7 L %
(39.0-52.0) (39.0-52.0)
MCV 102.9 H fL 104.4 H fL
(80.0-94.0) (80.0-94.0)
MCH 34.2 H pg 34.2 H pg
(27.0-31.0) (27.0-31.0)
MCHC 32.8 L g/dL
(33.0-37.0)
RDW 20.5 H % 20.6 H %
(11.5-14.5) (11.5-14.5)
Absolute Lymphs (auto) 1.0 L 10^3/uL 0.9 L 10^3/uL
(1.2-3.4) (1.2-3.4)
Lymphocytes % 15.3 L % 12.6 L %
(20.5-51.1) (20.5-51.1)
Monocytes % 9.4 H %
(1.7-9.3)
Carbon Dioxide 21 L mmol/L
(22-30)
BUN 94 H mg/dl 93 H mg/dl
(9-20) (9-20)
Creatinine 2.1 H mg/dL 2.1 H mg/dL
(0.7-1.3) (0.7-1.3)
11/07/24 14:50
11/07/24 14:50
Vital Signs
Initial and Last Documented VS:
Initial Vital Signs
Temp Pulse Resp BP Pulse Ox
98.4 F 56 18 94/40 100
11/07/24 14:06 11/07/24 14:06 11/07/24 14:06 11/07/24 14:06 11/07/24 14:06
Last Documented Vital Signs
Temp Pulse Resp BP Pulse Ox
97.6 F 75 20 103/49 95
11/07/24 15:11 11/07/24 16:59 11/07/24 15:11 11/07/24 17:00 11/07/24 16:45
MDM/Problems Addressed
Differential Diagnosis Includes:
Dehydration, electrolyte imbalance, dysrhythmia
MDM/Problems Addressed:
Patient presents with dizziness, low blood pressure and low heart rate. Labs here show fairly significant prerenal azotemia. His CBC appears pretty stable. 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 Cornelius who reviewed his
most recent studies there. His creatinine and BUN are roughly the same. Patient's blood pressure typically does run in the 80s to 90s systolic. Given his severe valvular failure disease and heart failure it is necessary for him to be on the dry
side. Patient is tolerating these vital signs well. No intervention necessary at this time he can follow-up with cardiology as an outpatient.
Chronic conditions affecting care: HTN and Other (Significant tricuspid disease)
*Radiology
Radiology exam reviewed: radiology read reviewed
*Pulse Oximetry
Patient hypoxic: no
*EKG
Interpreted by ED Provider?: Yes
Heart Rate: 81
Rate: normal
Rhythm: PVC's and ventricular paced
Ischemia: non-specific ST changes
*Car Electronics Installer Interpretation
Rate: normal
Interpretation: abnormal
Rhythm: PVC's and ventricular paced
*Critical Care Note
Total Time (30-74mins, 75-104mins- exclusive of procedures): Not Applicable
Patient Management
Social determinants of health affecting care: Strong social support
Discussion with other providers: Other (Pt's export freight specialist @ [facility], Dr. Cornelius)
ED Attending Note
-
Portions of this chart may have been created with voice recognition software.� Occasional wrong word or��sound alike� substitutions may have occurred due to the inherent limitations of voice recognition software.
Discharge Plan
Departure
Patient Disposition: Home (Routine Discharge)
Date of Disposition: 11/07/24
Time of Disposition: 16:57
Patient with high blood pressure during this ER visit?: No
Condition: Good
Discharge Problem:
Bradycardia, Azotemia
Instructions: Bradycardia
Prescriptions:
No Action
metoprolol succinate 50 MG tablet extended release 24 hr
50 mg PO QPM
atorvastatin [Lipitor] 10 mg Tablet
10 mg PO QPM
clopidogrel [Plavix] 75 mg Tablet
75 mg PO DAILY
allopurinol 100 mg Tablet
100 mg PO DAILY
tamsulosin 0.4 mg Capsule
0.4 mg PO QPM
Jardiance 10 mg Tablet
10 mg PO DAILY
montelukast 10 mg Tablet
10 mg PO QPM
fluticasone propionate 50 mcg/actuation [place],Suspension
1 spray INTRANASAL BID PRN (Reason: congestion)
cetirizine [Zyrtec] 10 mg Tablet
10 mg PO QPM
acetaminophen 325 mg Tablet
650 mg PO Q4H PRN (Reason: mild pain/fever>100)
albuterol sulfate 90 mcg/actuation Hfa Aerosol Inhaler
2 puff INHALATION R Q4 PRN (Reason: sob/wheezing)
cholecalciferol (vitamin D3) [Vitamin D3] 25 mcg (1,000 unit) Tablet
25 mcg PO DAILY
sennosides [Senna Laxative] 8.6 mg Tablet
17.2 mg PO BID Qty: 0 0RF
oxycodone 5 mg tablet
5 - 10 mg PO Q6HPRN PRN (Reason: for moderate to severe)
torsemide 20 mg Tablet
80 mg PO BID
budesonide-formoterol [Symbicort] 80-4.5 mcg/actuation Hfa Aerosol Inhaler
2 puff INHALATION BID
Eliquis 5 mg Tablet
5 mg PO BID
potassium chloride 20 mEq Tablet Extended Release
20 meq PO DAILY
furosemide 40 mg Tablet
40 mg PO BID
lorazepam 0.5 mg Tablet
0.5 mg PO HS PRN (Reason: bedtime)
amoxicillin 500 mg Capsule
2,000 mg PO PRN PRN (Reason: prior to dentist )
triamcinolone acetonide 0.1 % Cream
1 applic TOPICAL BID PRN (Reason: as needed)
Referrals:
Steph Hernandez MD [Family Provider] -
Activity Restrictions/Additional Instructions:
You were sent to the emergency room because your blood pressure and heart rate were low. Your blood work here turned out to be close to your baseline. After consultation with Dr. Cornelius has become clear that these vital signs and blood tests are to
be expected for your current condition. No intervention is necessary at this time. Follow-up with Dr. Cornelius as scheduled.
Interventions
Interventions:
*Risk Screen - Suicide Last Done: 11/07/24 14:06
*General Assessment Last Done: 11/07/24 14:06
*Neglect/Abuse Screening Last Done: 11/07/24 14:06
*ED- Fall Risk Assessment Last Done: 11/07/24 14:06
*ED COVID-19 Vaccine History Last Done: 11/07/24 14:06
*Nursing Disposition Last Done: 11/07/24 17:05
ED- Cardiac Assessment Last Done: 11/07/24 15:11
ED- Neurological Assessment Last Done: 11/07/24 15:11
ED- Pulmonary Assessment Last Done: 11/07/24 15:11
Discharge Date and Time
Discharge Date/Time: 11/07/24 17:06
Print Language: TURKMEN
[2024-11-07 15:11] VITALS: BP 84/55
[2024-11-07 15:20] LABS: ALT (SGPT) 25 U/L (0-50); AST (SGOT) 37 U/L (17-59); Alkaline Phosphatase 100 U/L (38-126); Blood Urea Nitrogen 93 mg/dl (9-20); Calcium 8.9 mg/dl (8.4-10.2); Carbon Dioxide 23 mmol/L (22-30); Chloride 101 mmol/L (98-107); Estimated Creatinine Clearance 25 ml/min; Glucose 98 mg/dl (70-99); Sodium 138 mmol/L (135-145); Total Bilirubin 0.7 mg/dl (0.2-1.3); Total Protein 6.8 g/dl (6.3-8.2); eGFR 31.23
[2024-11-07 15:22] LABS: NT-proBNP 5580 pg/ml
[2024-11-07 15:34] VITALS: BP 103/65
[2024-11-07 16:02] VITALS: BP 112/89
[2024-11-07 17:00] VITALS: BP 103/49
== END 2024-11-07 17:06 | disposition home or self-care (01) ==
LOC: EMR 14:04
PROVIDERS: Emergency Medicine; EMERGENCY PHYSICIAN Emergency Medicine; FAMILY PHYSICIAN Family Medicine
DX: R00.1 Bradycardia, unspecified (principal); I49.3 Ventricular premature depolarization; R79.89 Other specified abnormal findings of blood chemistry; E78.00 Pure hypercholesterolemia, unspecified; I11.0 Hypertensive heart disease with heart failure; I50.9 Heart failure, unspecified; J45.909 Unspecified asthma, uncomplicated; I25.10 Atherosclerotic heart disease of native coronary artery without angina pectoris; Z95.0 Presence of cardiac pacemaker; Z95.2 Presence of prosthetic heart valve
CPT/HCPCS: 93288; 99285; 71046; 80053; 83880; 85025; 93005

== ENCOUNTER 2025-02-13 00:24 | Emergency (ER) | payer OTHER, SELFPAY ==
[2025-02-13 00:29] VITALS: BP 110/61
[2025-02-13 01:22] VITALS: BMI 24.7
[2025-02-13 01:23] VITALS: BP 153/100
--- NOTE | 2025-02-13 01:30 | VATNOTE ---
called to assess rue picc. small amount of bleeding noted on dressing. pt contacted home infusion and were told to go to ED. insertion site appears wnl. dressing changed per protocol. no bleeding noted at insertion site.gauze drssing applied nd
pt and instructed to contact home infusion in am to have picc redressed on monday.spoke with dr. arreola and pt to be discharged to home. pt and have a good understanding of situation and follow up care.
--- NOTE | 2025-02-13 02:02 | ED.GENMED ---
History of Present Illness
General
Chief Complaint: Vascular Access Problem
Source: patient, records and spouse
Exam Limitations: none
Time Seen by Provider: 02/13/25 01:40
Nursing documentation reviewed up to this point in time: agreed with
History of Present Illness
History of Present Illness:
79-year-old male with extensive medical history presents to the emergency room accompanied by his for evaluation of bleeding from right upper extremity PICC line. Patient receives most of his care at [facility]; he was recently
admitted for a mitral valve replacement and during that hospitalization was complaining of issues with his right toe and ultimately discovered to have osteomyelitis of the right great toe. He was discharged 02/07 from this hospitalization with a PICC
line in place with a plan for approximately 5 more weeks of IV antibiotics via PICC line (was discharged on cefepime). He has visiting nurse helping with care of his PICC line. He did have a dressing change today. Vincent noted that dressing was
soaked with blood and came to the ER to have the area assessed. He is notably on Plavix as well as Eliquis. He otherwise has no acute complaints.
Past History
Past History
ED Past Medical History: Arrthythmia, Asthma, CAD, HTN, Hypercholesterolemia, Valvular disease and Other (pacer)
ED Past Surgical History: Cardiac
Social History
Personal:
Living: with family
Review of Systems
Review of Systems
Skin: Reports other (Bleeding near PICC site)
Phy Exam
Physical Exam
Physical Exam:
General: Well appearing and non-toxic
HEENT: protecting airway
Neck: appears supple
CV: No evidence of cyanosis
Resp: No accessory muscle use
Abd: Non-distended
Extremities: No deformities
Neuro: Alert
Psych: Normal affect
Skin: Patient has PICC line in place right upper arm�initially some blood around the insertion site and dressing was soaked with blood
Scores
Heart Failure Risk
Heart Failure Risk Score: Not Applicable
Heart Score for Chest Pain Patients
STEMI patient?: Not applicable
Withdrawal Assessment of Alcohol
Withdrawal Assessment Completed?: Not applicable
Course
Vital Signs
Initial and Last Documented VS:
Initial Vital Signs
Temp Pulse Resp BP Pulse Ox
36.4 C 74 16 110/61 100
02/13/25 00:29 02/13/25 00:29 02/13/25 00:29 02/13/25 00:29 02/13/25 00:29
Last Documented Vital Signs
Temp Pulse Resp BP Pulse Ox
36.4 C 72 18 153/100 100
02/13/25 00:29 02/13/25 01:23 02/13/25 01:23 02/13/25 01:23 02/13/25 01:23
MDM/Problems Addressed
Differential Diagnosis Includes:
Bleeding PICC line
MDM/Problems Addressed:
79-year-old male with PICC line in place for right toe osteomyelitis presents with bleeding around the PICC line. Initially blood soaked dressing in the right upper extremities PICC; PICC team was able to come to bedside and remove dressing and
once cleaned no active bleeding noted. Clean gauze applied around insertion site to provide some additional pressure and then occlusive dressing applied over top. Patient was observed thereafter with no additional bleeding, dressing clean during
my assessment. Stable for discharge home.
Chronic conditions affecting care:
Cardiac history on multiple blood thinners likely contributes to bleeding around PICC site
*Pulse Oximetry
SaO2: 100
Oxygen Mode of Delivery: Room air
Patient hypoxic: no (100%)
*Critical Care Note
Total Time (30-74mins, 75-104mins- exclusive of procedures): Not Applicable
Data Reviewed
Source: patient and records
ED Attending Note
-
Portions of this chart may have been created with voice recognition software.� Occasional wrong word or��sound alike� substitutions may have occurred due to the inherent limitations of voice recognition software.
Discharge Plan
Departure
Patient Disposition: Home (Routine Discharge)
Date of Disposition: 02/13/25
Time of Disposition: 01:46
Patient with high blood pressure during this ER visit?: Yes
Discharge Problem:
Bleeding from PICC line
Instructions: Peripherally-Inserted Central Catheter (DC)
Prescriptions:
No Action
metoprolol succinate 50 MG tablet extended release 24 hr
50 mg PO QPM
atorvastatin [Lipitor] 10 mg Tablet
10 mg PO QPM
clopidogrel [Plavix] 75 mg Tablet
75 mg PO DAILY
allopurinol 100 mg Tablet
100 mg PO DAILY
tamsulosin 0.4 mg Capsule
0.4 mg PO QPM
Jardiance 10 mg Tablet
10 mg PO DAILY
montelukast 10 mg Tablet
10 mg PO QPM
fluticasone propionate 50 mcg/actuation [place],Suspension
1 spray INTRANASAL BID PRN (Reason: congestion)
cetirizine [Zyrtec] 10 mg Tablet
10 mg PO QPM
acetaminophen 325 mg Tablet
650 mg PO Q4H PRN (Reason: mild pain/fever>100)
albuterol sulfate 90 mcg/actuation Hfa Aerosol Inhaler
2 puff INHALATION R Q4 PRN (Reason: sob/wheezing)
cholecalciferol (vitamin D3) [Vitamin D3] 25 mcg (1,000 unit) Tablet
25 mcg PO DAILY
sennosides [Senna Laxative] 8.6 mg Tablet
17.2 mg PO BID Qty: 0 0RF
oxycodone 5 mg tablet
5 - 10 mg PO Q6HPRN PRN (Reason: for moderate to severe)
torsemide 20 mg Tablet
80 mg PO BID
budesonide-formoterol [Symbicort] 80-4.5 mcg/actuation Hfa Aerosol Inhaler
2 puff INHALATION BID
Eliquis 5 mg Tablet
5 mg PO BID
potassium chloride 20 mEq Tablet Extended Release
20 meq PO DAILY
furosemide 40 mg Tablet
40 mg PO BID
lorazepam 0.5 mg Tablet
0.5 mg PO HS PRN (Reason: bedtime)
amoxicillin 500 mg Capsule
2,000 mg PO PRN PRN (Reason: prior to dentist )
triamcinolone acetonide 0.1 % Cream
1 applic TOPICAL BID PRN (Reason: as needed)
Referrals:
NONE,* [Family Provider, Internal Medicine]
Interventions
Interventions:
*Risk Screen - Suicide Last Done: 02/13/25 00:29
*General Assessment Last Done: 02/13/25 01:24
*Neglect/Abuse Screening Last Done: 02/13/25 00:29
*ED- Fall Risk Assessment Last Done: 02/13/25 00:33
*ED COVID-19 Vaccine History Last Done: 02/13/25 00:33
*Nursing Disposition Last Done: 02/13/25 01:50
Discharge Date and Time
Print Language: [place]
== END 2025-02-13 02:06 | disposition home or self-care (01) ==
LOC: EMR 00:24
PROVIDERS: EMERGENCY PHYSICIAN Emergency Medicine
DX: T82.838A Hemorrhage due to vascular prosthetic devices, implants and grafts, initial encounter (principal); Y83.8 Other surgical procedures as the cause of abnormal reaction of the patient, or of later complication, without mention of misadventure at the time of the procedure; M86.8X8 Other osteomyelitis, other site; I25.10 Atherosclerotic heart disease of native coronary artery without angina pectoris; I11.0 Hypertensive heart disease with heart failure; I50.9 Heart failure, unspecified; R01.1 Cardiac murmur, unspecified; E78.00 Pure hypercholesterolemia, unspecified; I35.0 Nonrheumatic aortic (valve) stenosis; M19.90 Unspecified osteoarthritis, unspecified site; M10.9 Gout, unspecified; J45.909 Unspecified asthma, uncomplicated; Z95.0 Presence of cardiac pacemaker; Z95.1 Presence of aortocoronary bypass graft; Z79.02 Long term (current) use of antithrombotics/antiplatelets; Z79.01 Long term (current) use of anticoagulants; Z87.891 Personal history of nicotine dependence; Z88.1 Allergy status to other antibiotic agents; Z88.5 Allergy status to narcotic agent; Z88.2 Allergy status to sulfonamides; Z88.7 Allergy status to serum and vaccine; Z88.8 Allergy status to other drugs, medicaments and biological substances
CPT/HCPCS: 99282